=== PATIENT | female | born 1935 | race Caucasian/White ===

== ENCOUNTER 2022-08-31 14:19 | Inpatient (IN) | payer MEDICARE ==
--- NOTE | 2022-08-31 14:55 | ED ---
General Adult HPI - General Chief complaint: Shortness of Breath Stated complaint: CHRIS Time Seen by Provider: 08/31/22 14:22 Source: EMS Mode of arrival: EMS - History of Present Illness Initial comments: Dictation was produced using [employer] dictation software. please excuse any grammatical, word or spelling errors. Chief Complaint: 87-year-old female past medical history heart failure presents to the ER for dyspnea History of Present Illness: Patient is an 87-year-old female she just had movements from [place] to here. She grew up here however [facility] 25 years ago. After of blood when she decided to move back to [place] live with her daughters. Patient is allegedly has a history of heart failure. She complains today of shortness of breath. She does report right lower extremity deep calf pain. She has remote history of smoking. Denies any history of COPD. She does report history of heart failure. Patient denies any use of home o xygen. She does not take any anticoagulation medications. Denies any fever or cough. Patient flew on a plane yesterday. The ROS documented in this emergency department record has been reviewed and confirmed by me. Those systems with pertinent positive or negative responses have been documented in the HPI. All other systems are other negative and/or noncontributory. - Related Data Home Medications Medication Instructions Recorded Confirmed Aspirin EC [Ecotrin Low Dose] 81 mg PO HS 08/31/22 08/31/22 Atorvastatin [Lipitor] 20 mg PO DAILY 08/31/22 08/31/22 Bumetanide [BUMEX] 2 mg PO BID 08/31/22 08/31/22 Cyanocobalamin (Vitamin B-12) 1,000 mcg PO DAILY 08/31/22 08/31/22 [Vitamin B-12] Insulin NPH Hum/Reg Insulin Hm 10 unit SQ AC-BRKFST 08/31/22 08/31/22 [Novolin 70-30 100 Unit/ml Vial] Insulin NPH Hum/Reg Insulin Hm 18 unit SQ AC-SUPPER 08/31/22 08/31/22 [Novolin 70-30 100 Unit/ml Vial] Levothyroxine Sodium [Synthroid] 75 mcg PO DAILY 08/31/22 08/31/22 Melatonin [Melatonin ER] 10 mg PO HS 08/31/22 08/31/22 Multivitamins, Thera [Multivitamin 1 tab PO DAILY 08/31/22 08/31/22 (formulary)] NIFEdipine XL [Procardia XL] 60 mg PO BID 08/31/22 08/31/22 Nebivolol [Bystolic] 5 mg PO BID 08/31/22 08/31/22 Omeprazole [PriLOSEC] 20 mg PO BID 08/31/22 08/31/22 Potassium Chloride ER [K-Dur 20] 20 meq PO DAILY 08/31/22 08/31/22 allopurinoL [Zyloprim] 100 mg PO BID 08/31/22 08/31/22 busPIRone HCl [Buspar] 10 mg PO BID 08/31/22 08/31/22 hydrALAZINE HCL [Apresoline] 50 mg PO TID 08/31/22 08/31/22 predniSONE See Taper PO DAILY 08/31/22 08/31/22 Allergies Allergy/AdvReac Type Severity Reaction Status Date / Time adhesive tape Allergy Unknown Verified 08/31/22 16:25 meperidine [From Demerol] Allergy Unknown Verified 08/31/22 16:24 methylprednisolone Allergy Unknown Verified 08/31/22 16:25 [From Medrol] Review of Systems ROS Statement: Those systems with pertinent positive or pertinent negative responses have been documented in the HPI. ROS Other: All systems not noted in ROS Statement are negative. Past Medical History Past Medical History: Heart Failure Past Surgical History: Appendectomy, Hysterectomy, Joint Replacement General Exam - General Exam Comments Initial Comments: PHYSICAL EXAM: General Impression: Alert and oriented x3, not in acute distress HEENT: Normocephalic atraumatic, extra-ocular movements intact, pupils equal and reactive to light bilaterally, mucous membranes moist. Cardiovascular: Heart regular rate and rhythm Chest: Able to complete full sentences, no retractions, no tachypnea, lungs clear to auscultation bilaterally Abdomen: abdomen soft, non-tender, non-distended, no organomegaly Musculoskeletal: Pulses present and equal in all extremities, no peripheral edema Motor: no focal deficits noted Neurological: CN II-XII grossly intact, no focal motor or sensory deficits noted Skin: Intact with no visualized rashes Psych: Normal affect and mood Course Vital Signs 08/31/22 08/31/22 14:22 16:16 Temperature 98.4 F Pulse Rate 91 89 Respiratory 26 H 19 Rate Blood Pressure 157/58 158/58 O2 Sat by Pulse 91 L 93 L Oximetry Medical Decision Making - Medical Decision Making Was pt. sent in by a medical professional or institution ([facility]A Briggs, SPONGE PRESS OPERATOR, urgent care, hospital, or retirement...) When possible be specific @ -No Did you speak to anyone other than the patient for history (EMS, parent, family, police, friend...)? What history was obtained from this source @ -Daughter's at the bedside reports that patient is dyspneic Did you review nursing and triage notes (agree or disagree)? Why? @ -I reviewed and agree with nursing and triage notes Were old charts reviewed (outside hosp., previous admission, EMS record, old EKG, old radiological studies, urgent care reports/EKG's, retirement records)? Report findings @ -No old charts were reviewed Differential Diagnosis (chest pain, altered mental status, abdominal pain women, abdominal pain men, vaginal bleeding, musculoskeletal, weakness, fever, dyspnea, syncope, headache, dizziness, GI bleed, back pain, seizure, CVA, palpatations, mental health)? @ -Differential Dyspnea: Coronary syndrome, arrhythmia, tamponade, asthma, COPD, pulmonary embolism, pneumonia, pneumothorax, pulmonary effusion, anaphylaxis, diabetic ketoacidosis, flailed chest, pulmonary contusion, diaphragmatic rupture, anemia, neuromuscular, this is not meant to be an all-inclusive list. EKG interpreted by me (3pts min.). @ -My EKG interpretation: Ventricular rate 83, sinus rhythm,. Interval to 24, QRS 85, QTC 410. No AR prolongation, no QTC prolongation, no ST or T-wave changes noted. Overall, this EKG is unremarkable X-rays interpreted by me (1pt min.). @ -Chest x-ray shows heart failure CT interpreted by me (1pt min.). @ -None done U/S interpreted by me (1pt. min.). @ -None done What testing was considered but not performed or refused? (CT, X-rays, U/S, labs)? Why? @ -None What meds were considered but not given or refused? Why? @ -None Did you discuss the management of the patient with other professionals (professionals i.e. , VERA, SPONGE PRESS OPERATOR, lab, RT, psych nurse, social worker health services, welding equipment repairer, teacher, chief revenue officer, dependency case manager)? Give summary @ -Labs and imaging presentation discussed with Eula from [facility] hospitalist group Was smoking cessation discussed for >3mins.? @ -No Was critical care preformed (if so, how long)? @ -No Were there social determinants of health that impacted care today? How? (Homelessness, low income, unemployed, alcoholism, drug addiction, transportation, low edu. Level, literacy, decrease access to med. care, penitentiary, rehab)? @ -No Was there de-escalation of care discussed even if they declined (Discuss DNR or withdrawal of care, Hospice)? DNR status @ -No What co-morbidities impacted this encounter? (DM, HTN, Smoking, COPD, CAD, Cancer, CVA, ARF, Chemo, Hep., AIDS, mental health diagnosis, sleep apnea, morbid obesity)? @ -None Was patient admitted / discharged? Hospital course, mention meds given and route, prescriptions, significant lab abnormalities, going to OR and other pertinent info. @ -87-year-old female presents emergency Department with respiratory distress. Vital signs upon arrival shows tachypnea of 26. She is requiring 4 L nasal cannula to maintain normal saturations. Blood pressure within acceptable limits. Laboratory evaluation shows CBC within acceptable limits. D-dimer is elevated at 2.3. Pending nuclear medicine scan. Metabolic panel shows creatin ine of 2.87 with a BUN of 80. Patient has a G4 of 14. Glucose levels 126. Troponin level 0.156. Prematurity peptide is 7500. Chest x-ray shows cardiomegaly and pulmonary edema. Venous ultrasound of the right lower extremity shows no DVT. Patient be admitted for further care. Consultations chiquita molina to cardiology and nephrology Undiagnosed new problem with uncertain prognosis? @ -No Drug Therapy requiring intensive monitoring for toxicity (Heparin, Nitro, Insulin, Cardizem)? @ -No Were any procedures done? @ -No Diagnosis/symptom? Acute, or Chronic, or Acute on Chronic? Uncomplicated (without systemic symptoms) or Complicated (systemic symptoms)? @ -1. CHF exacerbation Side effects of treatment? @ -No Exacerbation, Progression, or Severe Exacerbation? @ -No Poses a threat to life or bodily function? How? (Chest pain, USA, ID, pneumonia, PE, COPD, DKA, ARF, appy, cholecystitis, CVA, Diverticulitis, Homicidal, Suicidal, threat to staff... and all critical care pts) @ -yes - Lab Data Result diagrams: 08/31/22 15:19 08/31/22 15:19 Lab Results 08/31/22 08/31/22 08/31/22 Range/Units 15:18 15:19 15:19 WBC 11.4 H (3.8-10.6) k/uL RBC 3.55 L (3.80-5.40) m/uL Hgb 10.5 L (11.4-16.0) gm/dL Hct 32.2 L (34.0-46.0) % MCV 90.8 (80.0-100.0) fL MCH 29.5 (25.0-35.0) pg MCHC 32.5 (31.0-37.0) g/dL RDW 15.8 H (11.5-15.5) % Plt Count 292 (150-450) k/uL MPV 8.0 Neutrophils % 88 % Lymphocytes % 6 % Monocytes % 4 % Eosinophils % 0 % Basophils % 0 % Neutrophils # 10.0 H (1.3-7.7) k/uL Lymphocytes # 0.7 L (1.0-4.8) k/uL Monocytes # 0.5 (0-1.0) k/uL Eosinophils # 0.0 (0-0.7) k/uL Basophils # 0.0 (0-0.2) k/uL Hypochromasia Slight PT 9.9 (9.0-12.0) sec INR 0.9 (<1.2) APTT 20.4 L (22.0-30.0) sec D-Dimer 2.30 H (<0.60) mg/L FEU Sodium (137-145) mmol/L Potassium (3.5-5.1) mmol/L Chloride (98-107) mmol/L Carbon Dioxide (22-30) mmol/L Anion Gap mmol/L BUN (7-17) mg/dL Creatinine (0.52-1.04) mg/dL Est GFR (CKD-EPI)AfAm (>60 ml/min/1.73 sqM) Est GFR (CKD-EPI)NonAf (>60 ml/min/1.73 sqM) Glucose (74-99) mg/dL Plasma Lactic Acid Franc 0.9 (0.7-2.0) mmol/L Calcium (8.4-10.2) mg/dL Magnesium (1.6-2.3) mg/dL Total Bilirubin (0.2-1.3) mg/dL AST (14-36) U/L ALT (4-34) U/L Alkaline Phosphatase (38-126) U/L Troponin I (0.000-0.034) ng/mL NT-Pro-B Natriuret Pep pg/mL Total Protein (6.3-8.2) g/dL Albumin (3.5-5.0) g/dL 08/31/22 08/31/22 08/31/22 Range/Units 15:19 15:19 15:19 WBC (3.8-10.6) k/uL RBC (3.80-5.40) m/uL Hgb (11.4-16.0) gm/dL Hct (34.0-46.0) % MCV (80.0-100.0) fL MCH (25.0-35.0) pg MCHC (31.0-37.0) g/dL RDW (11.5-15.5) % Plt Count (150-450) k/uL MPV Neutrophils % % Lymphocytes % % Monocytes % % Eosinophils % % Basophils % % Neutrophils # (1.3-7.7) k/uL Lymphocytes # (1.0-4.8) k/uL Monocytes # (0-1.0) k/uL Eosinophils # (0-0.7) k/uL Basophils # (0-0.2) k/uL Hypochromasia PT (9.0-12.0) sec INR (<1.2) APTT (22.0-30.0) sec D-Dimer (<0.60) mg/L FEU Sodium 135 L (137-145) mmol/L Potassium 3.8 (3.5-5.1) mmol/L Chloride 104 (98-107) mmol/L Carbon Dioxide 18 L (22-30) mmol/L Anion Gap 13 mmol/L BUN 80 H (7-17) mg/dL Creatinine 2.87 H (0.52-1.04) mg/dL Est GFR (CKD-EPI)AfAm 17 (>60 ml/min/1.73 sqM) Est GFR (CKD-EPI)NonAf 14 (>60 ml/min/1.73 sqM) Glucose 126 H (74-99) mg/dL Plasma Lactic Acid Franc (0.7-2.0) mmol/L Calcium 8.7 (8.4-10.2) mg/dL Magnesium 2.3 (1.6-2.3) mg/dL Total Bilirubin 0.5 (0.2-1.3) mg/dL AST 36 (14-36) U/L ALT 31 (4-34) U/L Alkaline Phosphatase 89 (38-126) U/L Troponin I 0.156 H* (0.000-0.034) ng/mL NT-Pro-B Natriuret Pep 7580 pg/mL Total Protein 6.2 L (6.3-8.2) g/dL Albumin 3.9 (3.5-5.0) g/dL Disposition Clinical Impression: CHF (congestive heart failure) Disposition: ADMITTED IP TO THIS [facility] Condition: Fair Referrals: None,Stated [Primary Care Provider] - 1-2 days Decision Time: 17:00
[2022-08-31 15:32] LABS: Basophils % (A) 0 %; Eosinophils % (A) 0 %; HCT 32.2 % (34.0-46.0); HGB 10.5 gm/dL (11.4-16.0); Hypochromasia Slight; Lymphocytes # (A) 0.7 k/uL (1.0-4.8); Lymphocytes % (A) 6 %; MCH 29.5 pg (25.0-35.0); MCHC 32.5 g/dL (31.0-37.0); MCV 90.8 fL (80.0-100.0); Monocytes # (A) 0.5 k/uL (0-1.0); Monocytes % (A) 4 %; Neutrophils % (A) 88 %; Platelet Count 292 k/uL (150-450); RBC 3.55 m/uL (3.80-5.40); RDW 15.8 % (11.5-15.5); WBC 11.4 k/uL (3.8-10.6)
--- NOTE | 2022-08-31 15:45 | XR ---
EXAMINATION TYPE: XR chest 2V DATE OF EXAM: 08/31/2022 COMPARISON: NONE HISTORY: Shortness of breath TECHNIQUE: Frontal and lateral views of the chest are obtained. FINDINGS: There is diffuse interstitial opacity, small bilateral pleural effusions and cardiomegaly. The findin gs are most consistent with CHF. There is no pneumothorax. The osseous structures are intact IMPRESSION: Acute cardiopulmonary disease most consistent with moderate to marked CHF.
[2022-08-31 15:50] LABS: INR 0.9 (<1.2); Prothrombin Time 9.9 sec (9.0-12.0)
[2022-08-31 16:01] LABS: ALT 31 U/L (4-34); AST 36 U/L (14-36); African American GFR (CKD) 17 (>60 ml/min/1.73 sqM); Albumin 3.9 g/dL (3.5-5.0); Alkaline Phosphatase 89 U/L (38-126); Anion Gap 13 mmol/L; Blood Urea Nitrogen 80 mg/dL (7-17); Calcium 8.7 mg/dL (8.4-10.2); Carbon Dioxide 18 mmol/L (22-30); Chloride 104 mmol/L (98-107); Glucose 126 mg/dL (74-99); Magnesium 2.3 mg/dL (1.6-2.3); Non-African American GFR(CKD) 14 (>60 ml/min/1.73 sqM); Potassium 3.8 mmol/L (3.5-5.1); Sodium 135 mmol/L (137-145); Total Bilirubin 0.5 mg/dL (0.2-1.3); Total Protein 6.2 g/dL (6.3-8.2)
[2022-08-31 16:02] LABS: Partial Thromboplastin Time 20.4 sec (22.0-30.0)
--- NOTE | 2022-08-31 16:13 | US ---
EXAMINATION TYPE: US venous doppler duplex LE RT DATE OF EXAM: 08/31/2022 4:00 PM COMPARISON: NONE CLINICAL INDICATION: Female, 87 years old with history of suspect dvt; Right lower leg pain SIDE PERFORMED: Right TECHNIQUE: The lower extremity deep venous system is examined utilizing real time linear array sonog oneyda with graded compression, doppler sonography and color-flow sonography. VESSELS IMAGED: Common Femoral Vein Deep Femoral Vein Greater Saphenous Vein * Femoral Vein Popliteal Vein Small Saphenous Vein * Proximal Calf Veins (* superficial vessels) The deep venous system of the right lower extremity from the right common femoral vein to the proxima l calf veins is patent and compressible with augmentable flow and normal waveforms. IMPRESSION: No evidence of DVT from the right common femoral vein to the proximal right calf veins.
[2022-08-31] MEDS ORDERED: FUROSEMIDE 10 MG/ML 4 ML VIAL IV STA (16:53)
[2022-08-31 20:02] LABS: Glucose,Whole Blood 197 mg/dL (70-110)
[2022-08-31] MEDS ORDERED: DEXTROSE 50% SYRINGE 50 ML IVP PRN ×2 (20:06)
--- NOTE | 2022-08-31 20:35 | P.HPIM ---
History of Present Illness This is a pleasant 87 years old female with past medical history of chronic kidney disease, chronic heart failure, hypertension, hyperlipidemia, hypothyroidism, diabetes mellitus, history of GERD. Patient was recently moved from [place] back to [place]. Patient states she came because of dyspnea and leg swelling for 1 month, last night she flew from [place] back to [place], [place] she was hospitalized 6 type sutures than 4 heart failure any disease diabetes mellitus and hypertension. not on a blood thinner and takes low-dose aspirin She denies any chest pain. She has little dry cough. She feels generally weak She has some mild right chest discomfort for the last 3 hours Nonspecific no recuperating or aggravating factors it has been going on for last 2 months, comes and goes. Patient uses CPAP machine at night. She's been constipated other than that she denies any specific GI urinary or neurological symptoms She quit smoking 40 years ago and drinking alcohol 20 years ago. No illicit drugs. She's been complaining of from right calf pain and ultrasound was negative for DVT. She is not on oxygen at home She moved to [place] with her daughters On admission she is afebrile, mildly tachypneic, hypertensive and she was saturating 91% on 4 L oxygen via nasal cannula improved to 95% She has mild leukocytosis of 11.4, hemoglobin 10.5. Risks of CBC is unremarkable. D-dimer 2.3. BMP showing a creatinine of 2.8, unknown baseline Glucose 126. Liver enzymes unremarkable Elevated troponin 0.15. ProBNP is elevated 7580. EKG showing normal sinus rhythm with no significant ST-T changes and QTC 410. Chest x-ray: CHF Venous Doppler showed no evidence of deep venous thrombosis Ventilation perfusion this is ordered and is pending. Review of Systems Review of systems CONSTITUTIONAL: No fever, no malaise, no fatigue. HEENT: No recent visual problems or hearing problems. Denied any sore throat. CARDIOVASCULAR: No orthopnea, PND, no palpitations, no syncope. PULMONARY: No chest wall tenderness, no hemoptysis. GASTROINTESTINAL: No diarrhea, no nausea, no vomiting, no abdominal pain. Normoactive bowel sounds. NEUROLOGICAL: No headaches, no weakness, no numbness. HEMATOLOGICAL: Denies any bleeding or petechiae. GENITOURINARY: Denies any burning micturition, frequency, or urgency. MUSCULOSKELETAL/RHEUMATOLOGICAL: Denies any joint pain, swelling, or any muscle pain. ENDOCRINE: Denies any polyuria or polydipsia. Past Medical History Past Medical History: Heart Failure Past Surgical History: Appendectomy, Hysterectomy, Joint Replacement Medications and Allergies Home Medications Medication Instructions Recorded Confirmed Type Aspirin EC [Ecotrin Low Dose] 81 mg PO HS 08/31/22 08/31/22 History Atorvastatin [Lipitor] 20 mg PO DAILY 08/31/22 08/31/22 History Bumetanide [BUMEX] 2 mg PO BID 08/31/22 08/31/22 History Cyanocobalamin (Vitamin B-12) 1,000 mcg PO DAILY 08/31/22 08/31/22 History [Vitamin B-12] Insulin NPH Hum/Reg Insulin Hm 10 unit SQ AC-BRKFST 08/31/22 08/31/22 History [Novolin 70-30 100 Unit/ml Vial] Insulin NPH Hum/Reg Insulin Hm 18 unit SQ AC-SUPPER 08/31/22 08/31/22 History [Novolin 70-30 100 Unit/ml Vial] Levothyroxine Sodium [Synthroid] 75 mcg PO DAILY 08/31/22 08/31/22 History Melatonin [Melatonin ER] 10 mg PO HS 08/31/22 08/31/22 History Multivitamins, Thera [Multivitamin 1 tab PO DAILY 08/31/22 08/31/22 History (formulary)] NIFEdipine XL [Procardia XL] 60 mg PO BID 08/31/22 08/31/22 History Nebivolol [Bystolic] 5 mg PO BID 08/31/22 08/31/22 History Omeprazole [PriLOSEC] 20 mg PO BID 08/31/22 08/31/22 History Potassium Chloride ER [K-Dur 20] 20 meq PO DAILY 08/31/22 08/31/22 History allopurinoL [Zyloprim] 100 mg PO BID 08/31/22 08/31/22 History busPIRone HCl [Buspar] 10 mg PO BID 08/31/22 08/31/22 History hydrALAZINE HCL [Apresoline] 50 mg PO TID 08/31/22 08/31/22 History predniSONE See Taper PO DAILY 08/31/22 08/31/22 History Allergies Allergy/AdvReac Type Severity Reaction Status Date / Time adhesive tape Allergy Unknown Verified 07/02/23 16:25 meperidine [From Demerol] Allergy Unknown Verified 08/31/22 16:24 methylprednisolone Allergy Unknown Verified 08/31/22 16:25 [From Medrol] Physical Exam Vitals: Vital Signs Temp Pulse Resp BP Pulse Ox 08/31/22 18:49 98.6 F 90 20 168/86 95 08/31/22 16:16 89 19 158/58 93 L 08/31/22 14:22 98.4 F 91 26 H 157/58 91 L Intake and Output 08/31/22 08/31/22 08/31/22 06:59 14:59 22:59 Other: Weight 78.018 kg GENERAL: The patient is alert and oriented x3, not in any acute distress. Well developed, well nourished. HEENT: Pupils are round and equally reacting to light. EOMI. No scleral icterus. No conjunctival pallor. Normocephalic, atraumatic. No pharyngeal erythema. No thyromegaly. CARDIOVASCULAR: S1 and S2 present. No murmurs, rubs, or gallops. -PULMONARY: Chest is clear to auscultation, no wheezing . Mild bilateral basal crackles. ABDOMEN: Soft, nontender, nondistended, normoactive bowel sounds. No palpable organomegaly. MUSCULOSKELETAL: No joint swelling or deformity. -EXTREMITIES: No cyanosis, clubbing, . Bilateral pitting leg leg edema. NEUROLOGICAL: Gross neurological examination did not reveal any focal deficits. SKIN: No rashes. no petechiae. Results CBC & Chem 7: 08/31/22 15:19 08/31/22 15:19 Labs: Abnormal Lab Results - Last 24 Hours (Table) 08/31/22 08/31/22 08/31/22 Range/Units 15:19 15:19 15:19 WBC 11.4 H (3.8-10.6) k/uL RBC 3.55 L (3.80-5.40) m/uL Hgb 10.5 L (11.4-16.0) gm/dL Hct 32.2 L (34.0-46.0) % RDW 15.8 H (11.5-15.5) % Neutrophils # 10.0 H (1.3-7.7) k/uL Lymphocytes # 0.7 L (1.0-4.8) k/uL APTT 20.4 L (22.0-30.0) sec D-Dimer 2.30 H (<0.60) mg/L FEU Sodium 135 L (137-145) mmol/L Carbon Dioxide 18 L (22-30) mmol/L BUN 80 H (7-17) mg/dL Creatinine 2.87 H (0.52-1.04) mg/dL Glucose 126 H (74-99) mg/dL POC Glucose (mg/dL) (70-110) mg/dL Troponin I (0.000-0.034) ng/mL Total Protein 6.2 L (6.3-8.2) g/dL 08/31/22 08/31/22 Range/Units 15:19 19:59 WBC (3.8-10.6) k/uL RBC (3.80-5.40) m/uL Hgb (11.4-16.0) gm/dL Hct (34.0-46.0) % RDW (11.5-15.5) % Neutrophils # (1.3-7.7) k/uL Lymphocytes # (1.0-4.8) k/uL APTT (22.0-30.0) sec D-Dimer (<0.60) mg/L FEU Sodium (137-145) mmol/L Carbon Dioxide (22-30) mmol/L BUN (7-17) mg/dL Creatinine (0.52-1.04) mg/dL Glucose (74-99) mg/dL POC Glucose (mg/dL) 197 H (70-110) mg/dL Troponin I 0.156 H* (0.000-0.034) ng/mL Total Protein (6.3-8.2) g/dL Assessment and Plan Assessment: Acute CHF exacerbation Acute hypoxic respiratory failure secondary to above Chronic kidney disease, unknown baseline with possible elements of acute kidney injury Elevated troponin could be secondary to kidney disease and heart failure Diabetes mellitus Hypertension Hyperlipidemia History of osteoarthritis Hypothyroidism History of sleep apnea on CPAP/BiPAP Plan: Continue with IV Lasix 40 mg twice daily Continue with aspirin Oxygen therapy Follow-up with cardiology and pulmonary Check echocardiogram Check renal ultrasound Check urine analysis Check bladder scan Follow-up ventilation perfusion scan Labs and medication were reviewed.. Continue same treatment. Continue with symptomatic treatment. Resume home medication. Monitor labs and vitals. DVT and GI prophylaxis. Further recommendations as per clinical course of the patient DVT prophylaxis: Subcutaneous heparin GI Prophylaxis: Pepcid PT/OT: Pending Prognosis is guarded
[2022-08-31] MEDS: INSULIN ASPART (NovoLOG) 100 UNIT/ML VIAL SQ SCH (21:37)
[2022-08-31] MEDS: ASPIRIN 81 MG PO SCH (21:38)
[2022-08-31] MEDS: hydrALAZINE HCL 50 MG TAB PO SCH (21:38)
[2022-08-31] MEDS: busPIRone HCl 10 MG TAB PO SCH (21:38)
[2022-08-31] MEDS: MELATONIN 5 MG TABLET PO SCH (21:38)
[2022-08-31] MEDS: NEBIVOLOL 5 MG TAB PO SCH (21:39)
[2022-08-31] MEDS: allopurinoL 100 MG TAB PO SCH (21:39)
--- NOTE | 2022-08-31 21:40 | NM ---
EXAMINATION TYPE: NM pul vent and perfuse DATE OF EXAM: 08/31/2022 CLINICAL INDICATION: Female, 87 years old with history of elevated d-dimer; TECHNIQUE: Utilizing inhalation of 62.7 mCi Tc 99m DTPA aerosol and intravenous injection of 4.4 mCi of Tc 99m MAA, ventilation and perfusion images are acquired post injection in multiple projections. FINDINGS: Normal radiotracer distribution is noted in the lungs. There is no evidence of mismatched defects. IMPRESSION: No evidence for pulmonary embolism.
[2022-08-31] MEDS: HEPARIN SODIUM,PORCINE/PF 5,000 UNIT/0.5 ML SYRINGE SQ SCH (23:54)
[2022-09-01 06:09] LABS: Glucose,Whole Blood 154 mg/dL (70-110)
[2022-09-01] MEDS: FUROSEMIDE 10 MG/ML 4 ML VIAL IV SCH ×2 (06:24→16:34)
[2022-09-01] MEDS: LEVOTHYROXINE 75 MCG TAB PO SCH (06:25)
[2022-09-01] MEDS: PANTOPRAZOLE 40 MG TABLET PO SCH (06:25)
[2022-09-01] MEDS: INSULIN ASPART (NovoLOG) 100 UNIT/ML VIAL SQ SCH ×4 (06:25→21:43)
--- NOTE | 2022-09-01 08:24 | US ---
EXAMINATION TYPE: US renals and bladder DATE OF EXAM: 09/01/2022 COMPARISON: NONE CLINICAL INDICATION: Female, 87 years old with history of high creatinine; high creatinine EXAM MEASUREMENTS: Right Kidney: 10.4 x 3.9 x 4.1 cm Left Kidney: 9.8 x 4.7 x 3.7 cm Right Kidney: thin renal cortex, echogenic Left Kidney: thin renal cortex, echogenic Bladder: appears wnl Bilateral Jets seen: no IMPRESSION: 1. Some thinning of the renal cortices could indicate early renal failure.
[2022-09-01 08:30] LABS: Basophils % (A) 0 %; Eosinophils # (A) 0.2 k/uL (0-0.7); Eosinophils % (A) 2 %; HCT 29.1 % (34.0-46.0); HGB 9.3 gm/dL (11.4-16.0); Lymphocytes # (A) 1.3 k/uL (1.0-4.8); Lymphocytes % (A) 17 %; MCH 28.5 pg (25.0-35.0); MCHC 31.9 g/dL (31.0-37.0); MCV 89.3 fL (80.0-100.0); Mean Platelet Volume 8.2; Monocytes # (A) 0.5 k/uL (0-1.0); Monocytes % (A) 6 %; Neutrophils # (A) 5.7 k/uL (1.3-7.7); Neutrophils % (A) 72 %; Platelet Count 277 k/uL (150-450); RBC 3.26 m/uL (3.80-5.40); WBC 7.9 k/uL (3.8-10.6)
[2022-09-01 08:58] LABS: African American GFR (CKD) 17 (>60 ml/min/1.73 sqM); Anion Gap 12 mmol/L; Blood Urea Nitrogen 81 mg/dL (7-17); Calcium 8.5 mg/dL (8.4-10.2); Carbon Dioxide 22 mmol/L (22-30); Chloride 102 mmol/L (98-107); Glucose 121 mg/dL (74-99); Non-African American GFR(CKD) 14 (>60 ml/min/1.73 sqM); Potassium 3.5 mmol/L (3.5-5.1); Sodium 136 mmol/L (137-145)
[2022-09-01] MEDS: MULTIVITAMINS, THERA 1 EACH TAB PO SCH (09:39)
[2022-09-01] MEDS: hydrALAZINE HCL 50 MG TAB PO SCH ×3 (09:39→21:45)
[2022-09-01] MEDS: NEBIVOLOL 5 MG TAB PO SCH ×2 (09:39→21:42)
[2022-09-01] MEDS: ATORVASTATIN 20 MG TAB PO SCH (09:39)
[2022-09-01] MEDS: busPIRone HCl 10 MG TAB PO SCH ×2 (09:39→21:42)
[2022-09-01] MEDS: POTASSIUM CHLORIDE ER 20 MEQ TAB.ER PO SCH (09:39)
[2022-09-01] MEDS: CYANOCOBALAMIN 500 MCG TAB PO SCH (09:39)
[2022-09-01] MEDS: allopurinoL 100 MG TAB PO SCH ×2 (09:39→21:42)
[2022-09-01] MEDS: HEPARIN SODIUM,PORCINE/PF 5,000 UNIT/0.5 ML SYRINGE SQ SCH ×2 (09:41→15:33)
--- NOTE | 2022-09-01 10:46 | P.CRDCN ---
History of Present Illness Consult date: 09/01/22 Consult reason: congestive heart failure History of present illness: History of present illness: This is an 87-year-old female patient here from [place] with extensive past medical history including chronic kidney disease stage IV, chronic heart failure, hypertension, hyperlipidemia, hypothyroidism, diabetes mellitus type 2, gastroesophageal reflux disease. Patient states that she has had a total of 6 hospitalizations since April of this year while in [place]. She had 4 alone in July for kidney failure and heart failure. She denies any history of cardiac surgeries. She states she's had increased weight gain, lower extremity edema and wheezing, chills. She is not on home oxygen therapy. Patient denies having any chest pain, continues to have shortness of breath and dyspnea on exertion. EKG sinus rhythm with low voltage Chest x-ray: Acute cardiopulmonary disease disease most consistent with moderate to marked CHF. Right lower extremity venous Doppler study was negative for DVT. VQ scan negative for pulmonary embolism Renal ultrasound revealed thinning of the renal courses could indicate early renal failure. WBC 7.9, hemoglobin 9.3, platelet count 277. D-dimer 2.3. Sodium 136, potassium 3.5, BUN 81 creatinine 2.86. Glucose 121. Troponin 0.156. ProBNP 7580. Liver function tests are normal. Magnesium 2.3. Home cardiac medications: Aspirin 81 mg daily, Lipitor 20 mg daily, Bumex 2 mg twice daily, hydralazine 50 mg 3 times daily, Bystolic 5 mg twice daily, Procardia XL 60 mg twice daily, potassium chloride, levothyroxine 75 g daily. Review Of Systems: At the time of my evaluation: Constitutional: No fever, reports chills. No weakness, fatigue or lethargy. Reports weight gain. EENT: No headache. No dizziness. Lungs: Reports shortness of breath, cough, no sputum production. Reports wheezing. Cardiovascular: No chest pain, reports lower extremity edema. No palpitations. No paroxysmal nocturnal dyspnea. No orthopnea. No lightheadedness or dizziness. No syncopal episodes. Abdominal: No abdominal pain. No nausea, vomiting. No diarrhea. No constipation. No bloody or tarry stools. Genitourinary: No dysuria.. No urinary retention. Musculoskeletal: No myalgias. No muscle weakness, no frequent falls. No back pain. No neck pain. Integumentary: No wounds. No rash. No unusual bruising. Neurologic: No aphasia. No facial droop. No change in mentation. No head injury. No headache. Physical examination: Gen: This is an 87-year-old female. She is resting in bed and appears to be in no acute distress. VS: reviewed. Blood pressure 159/66, heart rate in the 60s and 70s, pulse ox 88-92% on 4 L nasal cannula, afebrile. HEENT: Head is atraumatic, normocephalic. Pupils equal, round. Sclerae is anicteric. NECK: Supple. No JVD. . LUNGS: Diminished with scattered wheezing. No intercostal retractions. HEART: Regular rate and rhythm. No murmur. ABDOMEN: Soft EXTREMITIES: 1+ bilateral pedal edema. NEUROLOGICAL: Patient is awake, alert and oriented x3. Assessment: Acute on chronic heart failure Elevated troponin Hypertension Hyperlipidemia Hypothyroidism Diabetes mellitus 2 Gastroesophageal reflux disease Plan: Continue patient's home cardiac medications Continue IV Lasix 40 mg every 12 hours, monitor I&O, daily weights, electrolytes and renal function Obtain 2-D echocardiogram and Doppler study to assess cardiac structure and function Further recommendations to follow based upon clinical course Thank you kindly for this consultation. Nurse practitioner note has been reviewed, I agree with documented findings and plan of care. Patient was seen and examined. Past Medical History Past Medical History: Heart Failure Additional Past Medical History / Comment(s): CKD Stage 4 History of Any Multi-Drug Resistant Organisms: None Reported Past Surgical History: Appendectomy, Hysterectomy, Joint Replacement Additional Past Surgical History / Comment(s): L knee total hip. R side thyroid removal for benign growth. Past Anesthesia/Blood Transfusion Reactions: No Reported Reaction Past Psychological History: Anxiety Smoking Status: Former smoker Past Alcohol Use History: Rare - Past Family History Mother Additional Family Medical History / Comment(s): at 38 of a CO. Father Additional Family Medical History / Comment(s): at 58 of a CVA. Medications and Allergies Home Medications Medication Instructions Recorded Confirmed Type Aspirin EC [Ecotrin Low Dose] 81 mg PO HS 08/31/22 08/31/22 History Atorvastatin [Lipitor] 20 mg PO DAILY 08/31/22 08/31/22 History Bumetanide [BUMEX] 2 mg PO BID 08/31/22 08/31/22 History Cyanocobalamin (Vitamin B-12) 1,000 mcg PO DAILY 08/31/22 08/31/22 History [Vitamin B-12] Insulin NPH Hum/Reg Insulin Hm 10 unit SQ AC-BRKFST 08/31/22 08/31/22 History [Novolin 70-30 100 Unit/ml Vial] Insulin NPH Hum/Reg Insulin Hm 18 unit SQ AC-SUPPER 08/31/22 08/31/22 History [Novolin 70-30 100 Unit/ml Vial] Levothyroxine Sodium [Synthroid] 75 mcg PO DAILY 08/31/22 08/31/22 History Melatonin [Melatonin ER] 10 mg PO HS 08/31/22 08/31/22 History Multivitamins, Thera [Multivitamin 1 tab PO DAILY 08/31/22 08/31/22 History (formulary)] NIFEdipine XL [Procardia XL] 60 mg PO BID 08/31/22 08/31/22 History Nebivolol [Bystolic] 5 mg PO BID 08/31/22 08/31/22 History Omeprazole [PriLOSEC] 20 mg PO BID 08/31/22 08/31/22 History Potassium Chloride ER [K-Dur 20] 20 meq PO DAILY 08/31/22 08/31/22 History allopurinoL [Zyloprim] 100 mg PO BID 08/31/22 08/31/22 History busPIRone HCl [Buspar] 10 mg PO BID 08/31/22 08/31/22 History hydrALAZINE HCL [Apresoline] 50 mg PO TID 08/31/22 08/31/22 History predniSONE See Taper PO DAILY 08/31/22 08/31/22 History Allergies Allergy/AdvReac Type Severity Reaction Status Date / Time adhesive tape Allergy Unknown Verified 08/31/22 16:25 meperidine [From Demerol] Allergy Unknown Verified 08/31/22 16:24 methylprednisolone Allergy Unknown Verified 08/31/22 16:25 [From Medrol] Physical Exam Vitals: Vital Signs Temp Pulse Pulse Resp BP BP Pulse Ox 09/01/22 04:00 98.2 F 64 19 139/68 92 L 09/01/22 02:00 67 20 08/31/22 23:50 98.5 F 67 20 152/56 96 08/31/22 19:30 98.2 F 65 22 169/66 93 L 08/31/22 18:49 98.6 F 90 20 168/86 95 08/31/22 16:16 89 19 158/58 93 L 08/31/22 14:22 98.4 F 91 26 H 157/58 91 L Intake and Output 08/31/22 09/01/22 09/01/22 22:59 06:59 14:59 Intake Total 480 Output Total 550 700 Balance -70 -700 Intake: Oral 480 Output: Urine 550 700 Other: Voiding Method External Catheter External Catheter Weight 78.018 kg 76.385 kg Results 09/01/22 07:56 09/01/22 07:56 Cardiac Enzymes 08/31/22 08/31/22 Range/Units 15:19 15:19 AST 36 (14-36) U/L Troponin I 0.156 H* (0.000-0.034) ng/mL Coagulation 08/31/22 Range/Units 15:19 PT 9.9 (9.0-12.0) sec APTT 20.4 L (22.0-30.0) sec CBC 08/31/22 Range/Units 15:19 WBC 11.4 H (3.8-10.6) k/uL RBC 3.55 L (3.80-5.40) m/uL Hgb 10.5 L (11.4-16.0) gm/dL Hct 32.2 L (34.0-46.0) % Plt Count 292 (150-450) k/uL Comprehensive Metabolic Panel 08/31/22 Range/Units 15:19 Sodium 135 L (137-145) mmol/L Potassium 3.8 (3.5-5.1) mmol/L Chloride 104 (98-107) mmol/L Carbon Dioxide 18 L (22-30) mmol/L BUN 80 H (7-17) mg/dL Creatinine 2.87 H (0.52-1.04) mg/dL Glucose 126 H (74-99) mg/dL Calcium 8.7 (8.4-10.2) mg/dL AST 36 (14-36) U/L ALT 31 (4-34) U/L Alkaline Phosphatase 89 (38-126) U/L Total Protein 6.2 L (6.3-8.2) g/dL Albumin 3.9 (3.5-5.0) g/dL Current Medications Generic Name Dose Route Start Last Admin Trade Name Jodee PRN Reason Stop Dose Admin Allopurinol 100 mg 08/31/22 21:00 08/31/22 21:39 Allopurinol 100 Mg Tab PO 100 mg BID SADIE Administration Aspirin 81 mg 08/31/22 21:00 08/31/22 21:38 Aspirin 81 Mg PO 81 mg HS SADIE Administration Atorvastatin Calcium 20 mg 09/01/22 09:00 Atorvastatin 20 Mg Tab PO DAILY SADIE Buspirone HCl 10 mg 08/31/22 21:00 08/31/22 21:38 Buspirone Hcl 10 Mg Tab PO 10 mg BID SADIE Administration Cyanocobalamin 1,000 mcg 09/01/22 09:00 Cyanocobalamin 500 Mcg Tab PO DAILY SADIE Dextrose/Water 25 ml 08/31/22 20:06 Dextrose 50% Syringe 50 Ml IVP PER PROTOCOL PRN Hypoglycemia Protocol Dextrose/Water 50 ml 08/31/22 20:06 Dextrose 50% Syringe 50 Ml IVP PER PROTOCOL PRN Hypoglycemia Protocol Furosemide 40 mg 09/01/22 06:00 09/01/22 06:24 Furosemide 10 Mg/Ml 4 Ml Vial IV 40 mg Q12H SADIE Administration Heparin Sodium (Porcine) 5,000 unit 09/01/22 00:00 08/31/22 23:54 Heparin Sodium,Porcine/Pf 5,000 Unit/0.5 Ml Syringe SQ 5,000 unit Q8HR SADIE Administration Hydralazine HCl 50 mg 08/31/22 22:00 08/31/22 21:38 Hydralazine Hcl 50 Mg Tab PO 50 mg TID SADIE Administration Insulin Aspart 0 unit 08/31/22 21:00 09/01/22 06:25 Insulin Aspart (Novolog) 100 Unit/Ml Vial SQ 2 unit ACHS SADIE Administration Protocol Levothyroxine Sodium 75 mcg 09/01/22 06:30 09/01/22 06:25 Levothyroxine 75 Mcg Tab PO 75 mcg DAILY@0630 SADIE Administration Melatonin 10 mg 08/31/22 21:00 08/31/22 21:38 Melatonin 5 Mg Tablet PO 10 mg HS SADIE Administration Multivitamins 1 each 09/01/22 09:00 Multivitamins, Thera 1 Each Tab PO DAILY SADIE Nebivolol 5 mg 08/31/22 21:00 08/31/22 21:39 Nebivolol 5 Mg Tab PO 5 mg BID SADIE Administration Nifedipine 60 mg 08/31/22 21:00 08/31/22 21:38 Nifedipine Xl 60 Mg Tab.Er.24 PO 60 mg BID SADIE Administration Pantoprazole Sodium 40 mg 09/01/22 07:30 09/01/22 06:25 Pantoprazole 40 Mg Tablet PO 40 mg AC-BRKFST SADIE Administration Potassium Chloride 20 meq 09/01/22 09:00 Potassium Chloride Er 20 Meq Tab.Er PO DAILY SADIE Intake and Output 08/31/22 09/01/22 09/01/22 22:59 06:59 14:59 Intake Total 480 Output Total 550 700 Balance -70 -700 Intake: Oral 480 Output: Urine 550 700 Other: Voiding Method External Catheter External Catheter Weight 78.018 kg 76.385 kg 08/31/22 15:19 08/31/22 15:19
--- NOTE | 2022-09-01 10:50 | P.NPCON ---
History of Present Illness - Reason for Consult chronic renal failure - History of Present Illness Patient is an 87-year-old female with history of CK D stage IV follows with a medical assistant in [place]. Patient also has history of type 2 diabetes, CHF, hypertension, coronary artery disease. Cecil patient has just moved to [place] from [place] and will be staying here close to her family. Patient is admitted with complaints of increased shortness of breath and leg swelling which has been progressively getting worse over the past 2-3 weeks. No history of fever no history of chest pain No nausea or vomiting or abdominal pain. Patient believes her baseline GFR was in the 20s. No previous labs available for comparison. Serum creatinine was 2.87. Patient is currently being diuresed. Lasix is 40 mg IV every 12 hours Patient states she is feeling better. She has an external catheter with urine output at 1.2 L for 24 hours. Not on PRISCILLA inhibitor's or angiotensin receptor blockers at home. No history of use of NSAIDs. Review of Systems As per HPI Past Medical History Past Medical History: Heart Failure Additional Past Medical History / Comment(s): CKD Stage 4 History of Any Multi-Drug Resistant Organisms: None Reported Past Surgical History: Appendectomy, Hysterectomy, Joint Replacement Additional Past Surgical History / Comment(s): L knee total hip. R side thyroid removal for benign growth. Past Anesthesia/Blood Transfusion Reactions: No Reported Reaction Past Psychological History: Anxiety Smoking Status: Former smoker Past Alcohol Use History: Rare - Past Family History Mother Additional Family Medical History / Comment(s): at 38 of a MD. Father Additional Family Medical History / Comment(s): at 58 of a CVA. Medications and Allergies Home Medications Medication Instructions Recorded Confirmed Type Aspirin EC [Ecotrin Low Dose] 81 mg PO HS 08/31/22 08/31/22 History Atorvastatin [Lipitor] 20 mg PO DAILY 08/31/22 08/31/22 History Bumetanide [BUMEX] 2 mg PO BID 08/31/22 08/31/22 History Cyanocobalamin (Vitamin B-12) 1,000 mcg PO DAILY 08/31/22 08/31/22 History [Vitamin B-12] Insulin NPH Hum/Reg Insulin Hm 10 unit SQ AC-BRKFST 08/31/22 08/31/22 History [Novolin 70-30 100 Unit/ml Vial] Insulin NPH Hum/Reg Insulin Hm 18 unit SQ AC-SUPPER 08/31/22 08/31/22 History [Novolin 70-30 100 Unit/ml Vial] Levothyroxine Sodium [Synthroid] 75 mcg PO DAILY 08/31/22 08/31/22 History Melatonin [Melatonin ER] 10 mg PO HS 08/31/22 08/31/22 History Multivitamins, Thera [Multivitamin 1 tab PO DAILY 08/31/22 08/31/22 History (formulary)] NIFEdipine XL [Procardia XL] 60 mg PO BID 08/31/22 08/31/22 History Nebivolol [Bystolic] 5 mg PO BID 08/31/22 08/31/22 History Omeprazole [PriLOSEC] 20 mg PO BID 08/31/22 08/31/22 History Potassium Chloride ER [K-Dur 20] 20 meq PO DAILY 08/31/22 08/31/22 History allopurinoL [Zyloprim] 100 mg PO BID 08/31/22 08/31/22 History busPIRone HCl [Buspar] 10 mg PO BID 08/31/22 08/31/22 History hydrALAZINE HCL [Apresoline] 50 mg PO TID 08/31/22 08/31/22 History predniSONE See Taper PO DAILY 08/31/22 08/31/22 History Allergies Allergy/AdvReac Type Severity Reaction Status Date / Time adhesive tape Allergy Unknown Verified 08/31/22 16:25 meperidine [From Demerol] Allergy Unknown Verified 08/31/22 16:24 methylprednisolone Allergy Unknown Verified 08/31/22 16:25 [From Medrol] Physical Exam Vitals: Vital Signs Temp Pulse Pulse Resp BP BP Pulse Ox 09/01/22 09:37 97.8 F 73 16 159/66 88 L 09/01/22 04:00 98.2 F 64 19 139/68 92 L 09/01/22 02:00 67 20 08/31/22 23:50 98.5 F 67 20 152/56 96 08/31/22 19:30 98.2 F 65 22 169/66 93 L 08/31/22 18:49 98.6 F 90 20 168/86 95 08/31/22 16:16 89 19 158/58 93 L 08/31/22 14:22 98.4 F 91 26 H 157/58 91 L Intake and Output 08/31/22 09/01/22 09/01/22 22:59 06:59 14:59 Intake Total 480 Output Total 550 700 650 Balance -70 -700 -650 Intake: Oral 480 Output: Urine 550 700 650 Other: Voiding Method External Catheter External Catheter External Catheter Weight 78.018 kg 76.385 kg Patient is awake, comfortable, no acute distress Examination of the heart S1 and S2 Examination of the lungs bilateral breath sounds are heard, decreased breath sounds at the bases Abdomen is soft nontender Examination lower extremities shows edema 1+ bilaterally [employer] exam grossly intact Results - Lab Results Most recent lab results Calcium 8.5 mg/dL (8.4-10.2) 09/01/22 07:56 Magnesium 2.3 mg/dL (1.6-2.3) 08/31/22 15:19 09/01/22 07:56 09/01/22 07:56 Assessment and Plan Assessment: 1. Chronic kidney disease NKF stage IV secondary to nephrosclerosis versus diabetic kidney disease. Baseline creatinine not available. Patient was following with a medical assistant in [place] but has moved to [place] now. Check UA and check ultrasound of the kidneys 2. Volume overload currently being diuresed 3. Acute CHF exacerbation, EF not known 4. Anemia of chronic disease rule out iron deficiency 5. Hypertension with CK D stage IV with volume overload Plan: Continue current dose of Lasix Check UA Check ultrasound of the kidneys Patient will need close follow-up as outpatient for CK D management. Check bladder scan and rule out urine retention ex Thank you for the consultation. We will continue to follow the patient with you during her hospitalization
[2022-09-01 11:15] VITALS: BMI 34.0
[2022-09-01 11:33] LABS: Glucose,Whole Blood 315 mg/dL (70-110)
[2022-09-01 14:02] LABS: Phosphorus 4.6 mg/dL (2.5-4.5)
[2022-09-01 16:11] LABS: Glucose,Whole Blood 235 mg/dL (70-110)
[2022-09-01 16:28] LABS: Appearance,Urine Clear (Clear); Bacteria,Urine Rare /hpf; Bilirubin,Urine Negative (Negative); Blood,Urine Negative (Negative); Color,Urine Light Yellow; Glucose,Urine (UA) Negative (Negative); Hyaline Casts,Urine 12 /lpf (0-2); Ketones,Urine Negative (Negative); Leukocyte Esterase,Urine Negative (Negative); Nitrite,Urine Negative (Negative); Protein,Urine 1+ (Negative); Specific Gravity,Urine 1.009 (1.001-1.035); Squamous Epithelial Cell,Urine <1 /hpf (0-4); Urobilinogen,Urine <2.0 mg/dL (<2.0); WBC,Urine <1 /hpf (0-5)
[2022-09-01] MEDS ORDERED: ACETAMINOPHEN TAB 325 MG TAB PO PRN (17:42)
--- NOTE | 2022-09-01 19:25 | CA ---
Transthoracic Echo Report Name: Khushbu Salomon Age: 87 Gender: F : 1935 Exam Date: 09/01/2022 08:47 Exam Location: [facility] Ht (in): 59 Wt (lb): 168 Ordering Physician: Johnny Cutler MD Attending/Referring Phys: [id number], [employer] Akshat Laguna Procedure CPT: Indications: Rule out heart disease Cardiac Hx: Technical Quality: Fair Contrast 1: Total Dose (mL): Contrast 2: Total Dose (mL): MEASUREMENTS (Male / Female) Normal Values 2D ECHO LV Diastolic Diameter PLAX 3.9 cm 4.2 - 5.9 / 3.9 - 5.3 cm LV Systolic Diameter PLAX 2.8 cm IVS Diastolic Thickness 1.2 cm 0.6 - 1.0 / 0.6 - 0.9 cm LVPW Diastolic Thickness 1.0 cm 0.6 - 1.0 / 0.6 - 0.9 cm LV Relative Wall Thickness 0.6 RV Internal Dim ED PLAX 3.4 cm LVOT Diameter 1.9 cm Aortic Root Diameter 2.7 cm LA Systolic Diameter LX 3.0 cm 3.0 - 4.0 / 2.7 - 3.8 cm LV Diastolic Volume MOD BP 46.5 cm??? 67 - 155 / 56 - 104 cm??? LV Systolic Volume MOD BP 13.1 cm??? 22 - 58 / 19 - 49 cm??? LV Ejection Fraction MOD BP 71.9 % >= 55 % LV Diastolic Volume MOD 4C 48.7 cm??? LV Systolic Volume MOD 4C 13.2 cm??? LV Ejection Fraction MOD 4C 72.8 % LV Diastolic Length 4C 6.7 cm LV Systolic Length 4C 5.5 cm LV Diastolic Volume MOD 2C 40.9 cm??? LV Systolic Volume MOD 2C 12.4 cm??? LV Ejection Fraction MOD 2C 69.7 % LV Diastolic Length 2C 6.1 cm LV Systolic Length 2C 5.8 cm LA Volume 60.8 cm??? 18 - 58 / 22 - 52 cm??? DOPPLER AV Peak Velocity 220.2 cm/s AV Peak Gradient 19.4 mmHg AV Mean Velocity 158.1 cm/s AV Mean Gradient 11.2 mmHg AV Velocity Time Integral 55.2 cm LVOT Peak Velocity 142.8 cm/s LVOT Peak Gradient 8.2 mmHg AV Area Cont Eq pk 1.8 cm??? MV Peak Velocity 186.8 cm/s MV Peak Gradient 14.0 mmHg MV Mean Velocity 104.2 cm/s MV Mean Gradient 5.3 mmHg MV Velocity Time Integral 70.7 cm MR Peak Velocity 543.2 cm/s MR Peak Gradient 118.0 mmHg Mitral E Point Velocity 159.4 cm/s Mitral A Point Velocity 149.5 cm/s Mitral E to A Ratio 1.1 MV Deceleration Time 256.3 ms TR Peak Velocity 357.1 cm/s TR Peak Gradient 51.0 mmHg Right Ventricular Systolic Press 56.3 mmHg PV Peak Velocity 145.0 cm/s PV Peak Gradient 8.4 mmHg FINDINGS Left Ventricle Normal LV size and wall thickness. Left ventricular ejection fraction is estimated at 55-60 %. Right Ventricle Normal right ventricular size. RVSP= 60mhg Right Atrium Normal right atrial size. Left Atrium Normal left atrial size. Mitral Valve Mild to moderate Mitral thickening. Mild MR. Aortic Valve AV Sclerosis without stenosis. No AI. Tricuspid Valve Structurally normal tricuspid valve. Moderate TR. Pulmonic Valve Pulmonic valve not well visualized. Mild to moderate PI. Pericardium Normal pericardium. Aorta Normal size aortic root and proximal ascending aorta. CONCLUSIONS Normal LV size and systolic function Elevated right ventricular systolic pressures Previewed by: Dr. Miguel Kenny MD (Electronically Signed) Final Date: 01 September 2022 19:24
[2022-09-01 20:16] LABS: Glucose,Whole Blood 280 mg/dL (70-110)
--- NOTE | 2022-09-01 20:43 | P.PN ---
Subjective This is a pleasant 87 years old female with past medical history of chronic kidney disease, chronic heart failure, hypertension, hyperlipidemia, hyp othyroidism, diabetes mellitus, history of GERD. Patient was recently moved from [place] back to [place]. Patient states she came because of dyspnea and leg swelling for 1 month, last night she flew from [place] back to [place], [place] she was hospitalized 6 type sutures than 4 heart failure any disease diabetes mellitus and hypertension. not on a blood thinner and takes low-dose aspirin She denies any chest pain. She has little dry cough. She feels generally weak She has some mild right chest discomfort for the last 3 hours Nonspecific no recuperating or aggravating factors it has been going on for last 2 months, comes and goes. Patient uses CPAP machine at night. She's been constipated other than that she denies any specific GI urinary or neurological symptoms She quit smoking 40 years ago and drinking alcohol 20 years ago. No illicit drugs. She's been complaining of from right calf pain and ultrasound was negative for DVT. She is not on oxygen at home She moved to [place] with her daughters On admission she is afebrile, mildly tachypneic, hypertensive and she was sat urating 91% on 4 L oxygen via nasal cannula improved to 95% She has mild leukocytosis of 11.4, hemoglobin 10.5. Risks of CBC is unremarkable. D-dimer 2.3. BMP showing a creatinine of 2.8, unknown baseline Glucose 126. Liver enzymes unremarkable Elevated troponin 0.15. ProBNP is elevated 7580. EKG showing normal sinus rhythm with no significant ST-T changes and QTC 410. Chest x-ray: CHF Venous Doppler showed no evidence of deep venous thrombosis Ventilation perfusion this is ordered and is pending. 09/01/2022 Patient clinically the same she still fluid overload that she still feels dyspneic with bilateral leg swelling she made ordered tomorrow on urine on IV Lasix 40 mg twice daily, partly because of her advanced kidney disease, pulse the it is a stage IV chronic kidney disease, renal ultrasound showing no hydronephrosis. Bladder scan is still pending. Urine analysis is negative for infection. Cardiology evaluated the patient and recommended to continue with the same Echocardiogram showed ejection fraction 72% with moderate mitral regurgitation. Continue with home dose of aspirin 81 mg going to increase Lasix to 60 mg twice daily to increase urine output and also put the patient on fluids resection 1000 per day Objective - Vital Signs Vital signs: Vital Signs Temp 97.8 F 09/01/22 09:37 Pulse 70 09/01/22 12:02 Resp 18 09/01/22 12:02 BP 161/61 09/01/22 12:02 Pulse Ox 92 L 09/01/22 12:02 FiO2 Intake & Output 08/31/22 09/01/22 09/01/22 18:59 06:59 18:59 Intake Total 480 Output Total 1250 650 Balance -770 -650 Weight 78.018 kg 76.385 kg 76.385 kg Intake: Oral 480 Output: Urine 1250 650 Other: Voiding Method External Catheter External Catheter - Exam GENERAL: The patient is alert and oriented x3, not in any acute distress. Well developed, well nourished. HEENT: Pupils are round and equally reacting to light. EOMI. No scleral icterus. No conjunctival pallor. Normocephalic, atraumatic. No pharyngeal erythema. No thyromegaly. CARDIOVASCULAR: S1 and S2 present. No murmurs, rubs, or gallops. -PULMONARY: Chest is clear to auscultation, no wheezing . Mild bilateral basal crackles. ABDOMEN: Soft, nontender, nondistended, normoactive bowel sounds. No palpable organomegaly. MUSCULOSKELETAL: No joint swelling or deformity. -EXTREMITIES: No cyanosis, clubbing, . Bilateral pitting leg leg edema. NEUROLOGICAL: Gross neurological examination did not reveal any focal deficits. SKIN: No rashes. no petechiae. - Labs CBC & Chem 7: 09/01/22 07:56 09/01/22 07:56 Labs: Abnormal Lab Results - Last 24 Hours (Table) 08/31/22 08/31/22 08/31/22 Range/Units 15:19 15:19 15:19 WBC 11.4 H (3.8-10.6) k/uL RBC 3.55 L (3.80-5.40) m/uL Hgb 10.5 L (11.4-16.0) gm/dL Hct 32.2 L (34.0-46.0) % RDW 15.8 H (11.5-15.5) % Neutrophils # 10.0 H (1.3-7.7) k/uL Lymphocytes # 0.7 L (1.0-4.8) k/uL APTT 20.4 L (22.0-30.0) sec D-Dimer 2.30 H (<0.60) mg/L FEU Sodium 135 L (137-145) mmol/L Carbon Dioxide 18 L (22-30) mmol/L BUN 80 H (7-17) mg/dL Creatinine 2.87 H (0.52-1.04) mg/dL Glucose 126 H (74-99) mg/dL POC Glucose (mg/dL) (70-110) mg/dL Hemoglobin A1c (<=6.0) % Troponin I (0.000-0.034) ng/mL Total Protein 6.2 L (6.3-8.2) g/dL 08/31/22 08/31/22 09/01/22 Range/Units 15:19 19:59 06:05 WBC (3.8-10.6) k/uL RBC (3.80-5.40) m/uL Hgb (11.4-16.0) gm/dL Hct (34.0-46.0) % RDW (11.5-15.5) % Neutrophils # (1.3-7.7) k/uL Lymphocytes # (1.0-4.8) k/uL APTT (22.0-30.0) sec D-Dimer (<0.60) mg/L FEU Sodium (137-145) mmol/L Carbon Dioxide (22-30) mmol/L BUN (7-17) mg/dL Creatinine (0.52-1.04) mg/dL Glucose (74-99) mg/dL POC Glucose (mg/dL) 197 H 154 H (70-110) mg/dL Hemoglobin A1c (<=6.0) % Troponin I 0.156 H* (0.000-0.034) ng/mL Total Protein (6.3-8.2) g/dL 09/01/22 09/01/22 09/01/22 Range/Units 07:56 07:56 07:56 WBC (3.8-10.6) k/uL RBC 3.26 L (3.80-5.40) m/uL Hgb 9.3 L (11.4-16.0) gm/dL Hct 29.1 L (34.0-46.0) % RDW 16.0 H (11.5-15.5) % Neutrophils # (1.3-7.7) k/uL Lymphocytes # (1.0-4.8) k/uL APTT (22.0-30.0) sec D-Dimer (<0.60) mg/L FEU Sodium 136 L (137-145) mmol/L Carbon Dioxide (22-30) mmol/L BUN 81 H (7-17) mg/dL Creatinine 2.86 H (0.52-1.04) mg/dL Glucose 121 H (74-99) mg/dL POC Glucose (mg/dL) (70-110) mg/dL Hemoglobin A1c 7.6 H (<=6.0) % Troponin I (0.000-0.034) ng/mL Total Protein (6.3-8.2) g/dL 09/01/22 09/01/22 Range/Units 10:31 11:31 WBC (3.8-10.6) k/uL RBC (3.80-5.40) m/uL Hgb (11.4-16.0) gm/dL Hct (34.0-46.0) % RDW (11.5-15.5) % Neutrophils # (1.3-7.7) k/uL Lymphocytes # (1.0-4.8) k/uL APTT (22.0-30.0) sec D-Dimer (<0.60) mg/L FEU Sodium (137-145) mmol/L Carbon Dioxide (22-30) mmol/L BUN (7-17) mg/dL Creatinine (0.52-1.04) mg/dL Glucose (74-99) mg/dL POC Glucose (mg/dL) 315 H (70-110) mg/dL Hemoglobin A1c (<=6.0) % Troponin I 0.128 H* (0.000-0.034) ng/mL Total Protein (6.3-8.2) g/dL Assessment and Plan Assessment: Acute CHF exacerbation Acute hypoxic respiratory failure secondary to above Chronic kidney disease, unknown baseline with possible elements of acute kidney injury Elevated troponin could be secondary to kidney disease and heart failure Diabetes mellitus Hypertension Hyperlipidemia History of osteoarthritis Hypothyroidism History of sleep apnea on CPAP/BiPAP Plan: Continue with IV Lasix 40 mg twice daily Continue with aspirin Oxygen therapy Follow-up with cardiology and pulmonary Check echocardiogram Check renal ultrasound Check urine analysis Check bladder scan Follow-up ventilation perfusion scan Labs and medication were reviewed.. Continue same treatment. Continue with symptomatic treatment. Resume home medication. Monitor labs and vitals. DVT and GI prophylaxis. Further recommendations as per clinical course of the patient DVT prophylaxis: Subcutaneous heparin GI Prophylaxis: Pepcid PT/OT: Pending Prognosis is guarded
[2022-09-01 21:15] LABS: % Iron Saturation 5.84 (12.00-45.00)
[2022-09-01] MEDS: ASPIRIN 81 MG PO SCH (21:42)
[2022-09-01] MEDS: FUROSEMIDE 10 MG/ML 10 ML VIAL IV SCH (21:42)
[2022-09-01] MEDS: MELATONIN 5 MG TABLET PO SCH (21:43)
[2022-09-02 06:38] LABS: Glucose,Whole Blood 239 mg/dL (70-110)
[2022-09-02] MEDS: HEPARIN SODIUM,PORCINE/PF 5,000 UNIT/0.5 ML SYRINGE SQ SCH ×4 (08:28→22:54)
[2022-09-02] MEDS: FUROSEMIDE 10 MG/ML 10 ML VIAL IV SCH ×2 (08:35→21:03)
[2022-09-02] MEDS: INSULIN ASPART (NovoLOG) 100 UNIT/ML VIAL SQ SCH ×4 (08:35→21:03)
[2022-09-02] MEDS: PANTOPRAZOLE 40 MG TABLET PO SCH (08:36)
[2022-09-02] MEDS: ATORVASTATIN 20 MG TAB PO SCH (08:36)
[2022-09-02] MEDS: hydrALAZINE HCL 50 MG TAB PO SCH ×3 (08:36→21:03)
[2022-09-02] MEDS: NEBIVOLOL 5 MG TAB PO SCH ×2 (08:36→21:03)
[2022-09-02] MEDS: MULTIVITAMINS, THERA 1 EACH TAB PO SCH (08:36)
[2022-09-02] MEDS: CYANOCOBALAMIN 500 MCG TAB PO SCH (08:36)
[2022-09-02] MEDS: POTASSIUM CHLORIDE ER 20 MEQ TAB.ER PO SCH (08:37)
[2022-09-02] MEDS: LEVOTHYROXINE 75 MCG TAB PO SCH (08:38)
[2022-09-02] MEDS: busPIRone HCl 10 MG TAB PO SCH ×2 (08:38→21:03)
[2022-09-02] MEDS: allopurinoL 100 MG TAB PO SCH ×2 (08:40→21:03)
--- NOTE | 2022-09-02 10:54 | P.PN ---
Subjective Patient is seen for follow-up for chronic kidney disease and possible acute kidney injury. Patient has underlying CK D stage IV and was following with nephrology in [place]. She has moved to [place] and will be establishing nephrology clinic care here. Next Patient is admitted with shortness of breath and volume overload. She is currently being diuresed. Maintained on Lasix 60 mg IV every 12 hours. Urine output 1500 mL for 24 hours. Shortness of breath persists. Maintained on 6 L nasal cannula. Objective - Vital Signs Vital signs: Vital Signs Temp 97.6 F 09/02/22 08:19 Pulse 71 09/02/22 08:19 Resp 20 09/02/22 08:19 BP 146/57 09/02/22 08:19 Pulse Ox 92 L 09/02/22 08:25 FiO2 Intake & Output 09/01/22 09/02/22 09/02/22 18:59 06:59 18:59 Intake Total 298 240 Output Total 1050 450 Balance -752 -450 240 Weight 76.385 kg 66.5 kg 77 kg Intake: Oral 298 240 Output: Urine 1050 450 Other: Voiding Method External Catheter External Catheter External Catheter - Exam Patient is awake, comfortable, no acute distress Examination of the heart S1 and S2 Examination of the lungs bilateral breath sounds are heard, decreased breath sounds at the bases Abdomen is soft nontender Examination lower extremities shows edema 1+ bilaterally LAY BROTHER exam grossly intact - Labs CBC & Chem 7: 09/01/22 07:56 09/01/22 07:56 Labs: Abnormal Lab Results - Last 24 Hours (Table) 09/01/22 09/01/22 09/01/22 Range/Units 07:56 10:31 11:31 POC Glucose (mg/dL) 315 H (70-110) mg/dL Hemoglobin A1c 7.6 H (<=6.0) % Phosphorus (2.5-4.5) mg/dL Iron (50-170) UG/DL % Saturation (12.00-45.00) Transferrin (204.0-354.0) mg/dL Troponin I 0.128 H* (0.000-0.034) ng/mL PTH Intact (14.0-72.0) pg/mL Urine Protein (Negative) Urine Bacteria (None) /hpf Hyaline Casts (0-2) /lpf 09/01/22 09/01/22 09/01/22 Range/Units 12:23 13:22 13:22 POC Glucose (mg/dL) (70-110) mg/dL Hemoglobin A1c (<=6.0) % Phosphorus 4.6 H (2.5-4.5) mg/dL Iron 16 L (50-170) UG/DL % Saturation 5.84 L (12.00-45.00) Transferrin 196.0 L (204.0-354.0) mg/dL Troponin I 0.112 H* (0.000-0.034) ng/mL PTH Intact (14.0-72.0) pg/mL Urine Protein 1+ H (Negative) Urine Bacteria Rare H (None) /hpf Hyaline Casts 12 H (0-2) /lpf 09/01/22 09/01/22 09/01/22 Range/Units 13:30 16:09 20:14 POC Glucose (mg/dL) 235 H 280 H (70-110) mg/dL Hemoglobin A1c (<=6.0) % Phosphorus (2.5-4.5) mg/dL Iron (50-170) UG/DL % Saturation (12.00-45.00) Transferrin (204.0-354.0) mg/dL Troponin I (0.000-0.034) ng/mL PTH Intact 79.0 H (14.0-72.0) pg/mL Urine Protein (Negative) Urine Bacteria (None) /hpf Hyaline Casts (0-2) /lpf 09/02/22 Range/Units 06:36 POC Glucose (mg/dL) 239 H (70-110) mg/dL Hemoglobin A1c (<=6.0) % Phosphorus (2.5-4.5) mg/dL Iron (50-170) UG/DL % Saturation (12.00-45.00) Transferrin (204.0-354.0) mg/dL Troponin I (0.000-0.034) ng/mL PTH Intact (14.0-72.0) pg/mL Urine Protein (Negative) Urine Bacteria (None) /hpf Hyaline Casts (0-2) /lpf Assessment and Plan Assessment: 1. Chronic kidney disease NKF stage IV secondary to nephrosclerosis versus diabetic kidney disease. Baseline creatinine not available. Patient was following with a sap technical developer in [place] but has moved to [place] now. UA is benign with 1+ protein. Ultrasound is unremarkable. 2. Volume overload currently being diuresed 3. Acute CHF exacerbation, EF not known 4. Anemia of chronic disease rule out iron deficiency 5. Hypertension with CK D stage IV with volume overload 6. Iron deficiency 7. CK D mineral bone disorder with PTH and 25-hydroxy vitamin D level at goal. Plan: Continue with IV Lasix Follow-up on labs from today Add IV iron Repeat labs in a.m.
[2022-09-02] MEDS: DOCUSATE 100 MG CAP PO SCH ×2 (11:18→21:04)
[2022-09-02] MEDS: SODIUM FERRIC GLUCONAT-SUCROSE 125 MG in SODIUM CHLORIDE 0.9% 100 ML IVPB SCH (11:18)
[2022-09-02 11:33] LABS: Glucose,Whole Blood 321 mg/dL (70-110)
--- NOTE | 2022-09-02 11:47 | P.CNPUL ---
History of Present Illness Consult date: 09/02/22 Requesting physician: Chan Epps Reason for consult: dyspnea, hypoxemia, pleural effusion, abnormal CXR/CT Chief complaint: Shortness of breath. History of present illness: Pulmonary consult dated 09/02/2022. 87-year-old female who recently moved back to [place] from [place]. She presented to the emergency department on August 31, complaining of shortness of breath. The patient is currently seen today in room 366. Her 3 daughters are present. She apparently been having shortness breath for a number of days, and decided to come into the hospital to be evaluated. She does not have a family doctor in this area, and is hoping to establish herself with Dr. Chanell Turk. She does have a remote history of tobacco use. She smoked only socially. The patient denies a history of chronic lung disease. She appears to have diastolic CHF. Her chest x-ray was consistent with fluid overload, and her N-terminal proBNP was elevated. The patient's currently on 6 L of oxygen. She has been seen by cardiology. In addition to diastolic CHF, she has a history of hyperlipidemia, diabetes, hypothyroidism, insomnia, gastroesophageal reflux disease, and gout. Laboratory data from September 01 showed white count of 7.9, hemoglobin 9.3, hematocrit 29.1, and a normal platelet count. Sodium 136, potassium 3.5, chlorides 102, CO2 22, BUN 81, and creatinine 2.86. The patient's troponins were 0.156 and 0.112. N-terminal proBNP was 7580. Chest x- ray was consistent with fluid overload. Dopplers of the lower semis were negative. Pulmonary perfusion lung scan, was negative. Review of Systems REVIEW OF SYSTEMS: CONSTITUTIONAL: Weakness, and fatigue. NEUROLOGIC: [ Negative.] HEENT: [ Negative.] CARDIAC: [Negative.] PULMONARY: Shortness of breath. GI: [Negative.] : [Negative.] RHEUMATOLOGIC: [ Negative.] IMMUNOLOGIC: [ Negative.] ENDOCRINE: [Negative. ] DERMATOLOGIC: [Negative.] Past Medical History Past Medical History: Heart Failure Additional Past Medical History / Comment(s): CKD Stage 4 History of Any Multi-Drug Resistant Organisms: None Reported Past Surgical History: Appendectomy, Hysterectomy, Joint Replacement Additional Past Surgical History / Comment(s): L knee total hip. R side thyroid removal for benign growth. Past Anesthesia/Blood Transfusion Reactions: No Reported Reaction Past Psychological History: Anxiety Smoking Status: Former smoker Past Alcohol Use History: Rare - Past Family History Mother Additional Family Medical History / Comment(s): at 38 of a NH. Father Additional Family Medical History / Comment(s): at 58 of a CVA. Medications and Allergies Home Medications Medication Instructions Recorded Confirmed Type Aspirin EC [Ecotrin Low Dose] 81 mg PO HS 08/31/22 08/31/22 History Atorvastatin [Lipitor] 20 mg PO DAILY 08/31/22 08/31/22 History Bumetanide [BUMEX] 2 mg PO BID 08/31/22 08/31/22 History Cyanocobalamin (Vitamin B-12) 1,000 mcg PO DAILY 08/31/22 08/31/22 History [Vitamin B-12] Insulin NPH Hum/Reg Insulin Hm 10 unit SQ AC-BRKFST 08/31/22 08/31/22 History [Novolin 70-30 100 Unit/ml Vial] Insulin NPH Hum/Reg Insulin Hm 18 unit SQ AC-SUPPER 08/31/22 08/31/22 History [Novolin 70-30 100 Unit/ml Vial] Levothyroxine Sodium [Synthroid] 75 mcg PO DAILY 08/31/22 08/31/22 History Melatonin [Melatonin ER] 10 mg PO HS 08/31/22 08/31/22 History Multivitamins, Thera [Multivitamin 1 tab PO DAILY 08/31/22 08/31/22 History (formulary)] NIFEdipine XL [Procardia XL] 60 mg PO BID 08/31/22 08/31/22 History Nebivolol [Bystolic] 5 mg PO BID 08/31/22 08/31/22 History Omeprazole [PriLOSEC] 20 mg PO BID 08/31/22 08/31/22 History Potassium Chloride ER [K-Dur 20] 20 meq PO DAILY 08/31/22 08/31/22 History allopurinoL [Zyloprim] 100 mg PO BID 08/31/22 08/31/22 History busPIRone HCl [Buspar] 10 mg PO BID 08/31/22 08/31/22 History hydrALAZINE HCL [Apresoline] 50 mg PO TID 08/31/22 08/31/22 History predniSONE See Taper PO DAILY 08/31/22 08/31/22 History Allergies Allergy/AdvReac Type Severity Reaction Status Date / Time adhesive tape Allergy Unknown Verified 08/31/22 16:25 meperidine [From Demerol] Allergy Unknown Verified 08/31/22 16:24 methylprednisolone Allergy Unknown Verified 08/31/22 16:25 [From Medrol] Physical Exam Osteopathic Statement: *. No significant issues noted on an osteopathic structural exam other than those noted in the History and Physical/Consult. Vitals: Vital Signs Temp Pulse Resp BP Pulse Ox 09/02/22 11:30 97.5 F L 68 18 138/63 90 L 09/02/22 08:25 92 L 09/02/22 08:19 97.6 F 71 20 146/57 91 L 09/02/22 02:00 63 20 09/02/22 00:00 98.6 F 63 20 139/59 92 L 09/01/22 20:00 99.2 F 77 20 165/68 90 L 09/01/22 15:29 98.0 F 72 20 166/69 90 L 09/01/22 12:02 70 18 161/61 92 L Intake and Output 09/01/22 09/02/22 09/02/22 22:59 06:59 14:59 Intake Total 180 240 Output Total 225 225 Balance -45 -225 240 Intake: Oral 180 240 Output: Urine 225 225 Other: Voiding Method External Catheter External Catheter External Catheter Weight 66.5 kg 77 kg No acute distress, oriented 3. Currently the patient's on 6 L. Saturations are between 90% and 92%. HEENT examination is grossly unremarkable. Mucous membranes are moist. No oral lesions. Neck supple. Full range of motion. No adenopathy thyromegaly or neck vein distention. Cardiovascular examination reveals regular rhythm rate. S1-S2 normal. No S3 or S4. Heart sounds are distant. Heart rate 68 bpm. A soft systolic murmur is noted. Lungs reveal scattered rhonchi and crackles. No wheezes. Breath sounds equal bilaterally. Abdomen soft bowel sounds are heard. No masses or tenderness. Extremities are intact. No cyanosis clubbing or edema. Skin is without rash or lesion. Neurologic examination is brief but nonfocal. Results - Laboratory Findings CBC and BMP: 09/01/22 07:56 09/01/22 07:56 PT/INR, D-dimer PT 9.9 sec (9.0-12.0) 08/31/22 15:19 INR 0.9 (<1.2) 08/31/22 15:19 D-Dimer 2.30 mg/L FEU (<0.60) H 08/31/22 15:19 Abnormal lab findings: Abnormal Labs 08/31/22 08/31/22 08/31/22 15:19 15:19 15:19 WBC 11.4 H RBC 3.55 L Hgb 10.5 L Hct 32.2 L RDW 15.8 H Neutrophils # 10.0 H Lymphocytes # 0.7 L APTT 20.4 L D-Dimer 2.30 H Sodium 135 L Carbon Dioxide 18 L BUN 80 H Creatinine 2.87 H Glucose 126 H POC Glucose (mg/dL) Hemoglobin A1c Phosphorus Iron % Saturation Transferrin Troponin I Total Protein 6.2 L PTH Intact Urine Protein Urine Bacteria Hyaline Casts 08/31/22 08/31/22 09/01/22 15:19 19:59 06:05 WBC RBC Hgb Hct RDW Neutrophils # Lymphocytes # APTT D-Dimer Sodium Carbon Dioxide BUN Creatinine Glucose POC Glucose (mg/dL) 197 H 154 H Hemoglobin A1c Phosphorus Iron % Saturation Transferrin Troponin I 0.156 H* Total Protein PTH Intact Urine Protein Urine Bacteria Hyaline Casts 09/01/22 09/01/22 09/01/22 07:56 07:56 07:56 WBC RBC 3.26 L Hgb 9.3 L Hct 29.1 L RDW 16.0 H Neutrophils # Lymphocytes # APTT D-Dimer Sodium 136 L Carbon Dioxide BUN 81 H Creatinine 2.86 H Glucose 121 H POC Glucose (mg/dL) Hemoglobin A1c 7.6 H Phosphorus Iron % Saturation Transferrin Troponin I Total Protein PTH Intact Urine Protein Urine Bacteria Hyaline Casts 09/01/22 09/01/22 09/01/22 10:31 11:31 12:23 WBC RBC Hgb Hct RDW Neutrophils # Lymphocytes # APTT D-Dimer Sodium Carbon Dioxide BUN Creatinine Glucose POC Glucose (mg/dL) 315 H Hemoglobin A1c Phosphorus Iron % Saturation Transferrin Troponin I 0.128 H* Total Protein PTH Intact Urine Protein 1+ H Urine Bacteria Rare H Hyaline Casts 12 H 09/01/22 09/01/22 09/01/22 13:22 13:22 13:30 WBC RBC Hgb Hct RDW Neutrophils # Lymphocytes # APTT D-Dimer Sodium Carbon Dioxide BUN Creatinine Glucose POC Glucose (mg/dL) Hemoglobin A1c Phosphorus 4.6 H Iron 16 L % Saturation 5.84 L Transferrin 196.0 L Troponin I 0.112 H* Total Protein PTH Intact 79.0 H Urine Protein Urine Bacteria Hyaline Casts 09/01/22 09/01/22 09/02/22 16:09 20:14 06:36 WBC RBC Hgb Hct RDW Neutrophils # Lymphocytes # APTT D-Dimer Sodium Carbon Dioxide BUN Creatinine Glucose POC Glucose (mg/dL) 235 H 280 H 239 H Hemoglobin A1c Phosphorus Iron % Saturation Transferrin Troponin I Total Protein PTH Intact Urine Protein Urine Bacteria Hyaline Casts 09/02/22 11:31 WBC RBC Hgb Hct RDW Neutrophils # Lymphocytes # APTT D-Dimer Sodium Carbon Dioxide BUN Creatinine Glucose POC Glucose (mg/dL) 321 H Hemoglobin A1c Phosphorus Iron % Saturation Transferrin Troponin I Total Protein PTH Intact Urine Protein Urine Bacteria Hyaline Casts - Diagnostic Findings Chest x-ray: image reviewed U/S of Legs: image reviewed Assessment and Plan Assessment: Acute hypoxemic respiratory failure, secondary to acute on chronic diastolic CHF. History of diabetes mellitus. Chronic kidney disease. History of hyperlipidemia. History of hypothyroidism. History of hypertension. History of gastroesophageal reflux disease. History of gout. Remote history of tobacco use. Plan: Plan dated 09/02/2022. The patient appears not have any significant pulmonary disease. I believe most of her shortness of breath and hypoxemia relates to diastolic CHF. She is currently on 6 L of oxygen, with saturations between 90% and 92%. N-terminal proBNP was elevated. The patient has been seen by cardiology. We will continue to follow make recommendations along the way. Prognosis is guarded. The patient currently does not have a family doctor, but is hoping to get in with Dr. Chanell Turk. Prognosis is guarded. Time with Patient: Greater than 30
--- NOTE | 2022-09-02 13:41 | P.PN ---
Subjective Progress Note Date: 09/02/22 History of present illness: This is an 87-year-old female patient here from [place] with extensive past me dical history including chronic kidney disease stage IV, chronic heart failure, hypertension, hyperlipidemia, hypothyroidism, diabetes mellitus type 2, gastroesophageal reflux disease. Patient states that she has had a total of 6 hospitalizations since April of this year while in [place]. She had 4 alone in July for kidney failure and heart failure. She denies any history of cardiac surgeries. She states she's had increased weight gain, lower extremity edema and wheezing, chills. She is not on home oxygen therapy. Patient denies having any chest pain, continues to have shortness of breath and dyspnea on exertion. EKG sinus rhythm with low voltage Chest x-ray: Acute cardiopulmonary disease disease most consistent with moderate to marked CHF. Right lower extremity venous Doppler study was negative for DVT. VQ scan negative for pulmonary embolism Renal ultrasound revealed thinning of the renal courses could indicate early renal failure. WBC 7.9, hemoglobin 9.3, platelet count 277. D-dimer 2.3. Sodium 136, potassium 3.5, BUN 81 creatinine 2.86. Glucose 121. Troponin 0.156. ProBNP 7580. Liver function tests are normal. Magnesium 2.3. Home cardiac medications: Aspirin 81 mg daily, Lipitor 20 mg daily, Bumex 2 mg twice daily, hydralazine 50 mg 3 times daily, Bystolic 5 mg twice daily, Procardia XL 60 mg twice daily, potassium chloride, levothyroxine 75 g daily. Patient continues to have shortness of breath. Oxygen has been increased from 4 L to 6 L nasal cannula. She still thinks she has diarrhea she's been continued on IV Lasix 60 mg every 12 hours. She is a -1200 mL balance. Weights do not seem to be accurate. Echocardiogram reveals normal LV size and systolic function. Elevated RVSP of 60 mmHg. Patient denies history of smoking. She does have a CPAP at home. Repeat troponins were 0.128 and 0.112 Physical examination: Gen: This is an 87-year-old female. She is resting in bed and appears to be in no acute distress. VS: reviewed. Blood pressure 138/63, heart rate in the 60s and 70s, pulse ox 90 % on 6 L nasal cannula, afebrile. HEENT: Head is atraumatic, normocephalic. Pupils equal, round. Sclerae is anicteric. NECK: Supple. No JVD. . LUNGS: Diminished with scattered wheezing. No intercostal retractions. HEART: Regular rate and rhythm. No murmur. ABDOMEN: Soft EXTREMITIES: No bilateral pedal edema. NEUROLOGICAL: Patient is awake, alert and oriented x3. Assessment: Acute on chronic heart failure Elevated troponin Hypertension Hyperlipidemia Hypothyroidism Diabetes mellitus 2 Gastroesophageal reflux disease Plan: Continue patient's home cardiac medications Continue IV Lasix 60 mg every 12 hours, monitor I&O, daily weights, electrolytes and renal function Obtain records from patient's hospital stay in [facility]. Further recommendations to follow based upon clinical course Nurse practitioner note has been reviewed, I agree with documented findings and plan of care. Patient was seen and examined. Objective - Vital Signs Vital signs: Vital Signs Temp 97.6 F 09/02/22 08:19 Pulse 71 09/02/22 08:19 Resp 20 09/02/22 08:19 BP 146/57 09/02/22 08:19 Pulse Ox 92 L 09/02/22 08:25 FiO2 Intake & Output 09/01/22 09/02/22 09/02/22 18:59 06:59 18:59 Intake Total 298 240 Output Total 1050 450 Balance -752 -450 240 Weight 76.385 kg 66.5 kg 77 kg Intake: Oral 298 240 Output: Urine 1050 450 Other: Voiding Method External Catheter External Catheter External Catheter - Labs CBC & Chem 7: 09/01/22 07:56 09/01/22 07:56 Labs: Abnormal Lab Results - Last 24 Hours (Table) 09/01/22 09/01/22 09/01/22 Range/Units 07:56 10:31 11:31 POC Glucose (mg/dL) 315 H (70-110) mg/dL Hemoglobin A1c 7.6 H (<=6.0) % Phosphorus (2.5-4.5) mg/dL Iron (50-170) UG/DL % Saturation (12.00-45.00) Transferrin (204.0-354.0) mg/dL Troponin I 0.128 H* (0.000-0.034) ng/mL PTH Intact (14.0-72.0) pg/mL Urine Protein (Negative) Urine Bacteria (None) /hpf Hyaline Casts (0-2) /lpf 09/01/22 09/01/22 09/01/22 Range/Units 12:23 13:22 13:22 POC Glucose (mg/dL) (70-110) mg/dL Hemoglobin A1c (<=6.0) % Phosphorus 4.6 H (2.5-4.5) mg/dL Iron 16 L (50-170) UG/DL % Saturation 5.84 L (12.00-45.00) Transferrin 196.0 L (204.0-354.0) mg/dL Troponin I 0.112 H* (0.000-0.034) ng/mL PTH Intact (14.0-72.0) pg/mL Urine Protein 1+ H (Negative) Urine Bacteria Rare H (None) /hpf Hyaline Casts 12 H (0-2) /[facility] 09/01/22 09/01/22 09/01/22 Range/Units 13:30 16:09 20:14 POC Glucose (mg/dL) 235 H 280 H (70-110) mg/dL Hemoglobin A1c (<=6.0) % Phosphorus (2.5-4.5) mg/dL Iron (50-170) UG/DL % Saturation (12.00-45.00) Transferrin (204.0-354.0) mg/dL Troponin I (0.000-0.034) ng/mL PTH Intact 79.0 H (14.0-72.0) pg/mL Urine Protein (Negative) Urine Bacteria (None) /hpf Hyaline Casts (0-2) /[facility] 09/02/22 Range/Units 06:36 POC Glucose (mg/dL) 239 H (70-110) mg/dL Hemoglobin A1c (<=6.0) % Phosphorus (2.5-4.5) mg/dL Iron (50-170) UG/DL % Saturation (12.00-45.00) Transferrin (204.0-354.0) mg/dL Troponin I (0.000-0.034) ng/mL PTH Intact (14.0-72.0) pg/mL Urine Protein (Negative) Urine Bacteria (None) /hpf Hyaline Casts (0-2) /[facility]
[2022-09-02 16:31] LABS: Glucose,Whole Blood 340 mg/dL (70-110)
[2022-09-02] MEDS ORDERED: INSULN ASP PRT/INSULIN ASPART 100 UNIT/ML 10 ML VIAL SQ SCH (17:30)
[2022-09-02 20:12] LABS: Glucose,Whole Blood 305 mg/dL (70-110)
[2022-09-02] MEDS: MELATONIN 5 MG TABLET PO SCH (21:03)
[2022-09-02] MEDS: ASPIRIN 81 MG PO SCH (21:04)
[2022-09-03 06:25] LABS: Glucose,Whole Blood 233 mg/dL (70-110)
[2022-09-03] MEDS: INSULIN ASPART (NovoLOG) 100 UNIT/ML VIAL SQ SCH ×4 (06:27→21:06)
[2022-09-03] MEDS: LEVOTHYROXINE 75 MCG TAB PO SCH (06:27)
[2022-09-03] MEDS: PANTOPRAZOLE 40 MG TABLET PO SCH (06:28)
[2022-09-03] MEDS ORDERED: INSULN ASP PRT/INSULIN ASPART 100 UNIT/ML 10 ML VIAL SQ SCH ×2 (07:30)
--- NOTE | 2022-09-03 07:53 | P.PN ---
Subjective This is a pleasant 87 years old female with past medical history of chronic kidney disease, chronic heart failure, hypertension, hyperlipidemia, hyp othyroidism, diabetes mellitus, history of GERD. Patient was recently moved from [place] back to [place]. Patient states she came because of dyspnea and leg swelling for 1 month, last night she flew from [place] back to [place], [place] she was hospitalized 6 type sutures than 4 heart failure any disease diabetes mellitus and hypertension. not on a blood thinner and takes low-dose aspirin She denies any chest pain. She has little dry cough. She feels generally weak She has some mild right chest discomfort for the last 3 hours Nonspecific no recuperating or aggravating factors it has been going on for last 2 months, comes and goes. Patient uses CPAP machine at night. She's been constipated other than that she denies any specific GI urinary or neurological symptoms She quit smoking 40 years ago and drinking alcohol 20 years ago. No illicit drugs. She's been complaining of from right calf pain and ultrasound was negative for DVT. She is not on oxygen at home She moved to [place] with her daughters On admission she is afebrile, mildly tachypneic, hypertensive and she was sat urating 91% on 4 L oxygen via nasal cannula improved to 95% She has mild leukocytosis of 11.4, hemoglobin 10.5. Risks of CBC is unremarkable. D-dimer 2.3. BMP showing a creatinine of 2.8, unknown baseline Glucose 126. Liver enzymes unremarkable Elevated troponin 0.15. ProBNP is elevated 7580. EKG showing normal sinus rhythm with no significant ST-T changes and QTC 410. Chest x-ray: CHF Venous Doppler showed no evidence of deep venous thrombosis Ventilation perfusion this is ordered and is pending. 09/01/2022 Patient clinically the same she still fluid overload that she still feels dyspneic with bilateral leg swelling she made ordered tomorrow on urine on IV Lasix 40 mg twice daily, partly because of her advanced kidney disease, pulse the it is a stage IV chronic kidney disease, renal ultrasound showing no hydronephrosis. Bladder scan is still pending. Urine analysis is negative for infection. Cardiology evaluated the patient and recommended to continue with the same Echocardiogram showed ejection fraction 72% with moderate mitral regurgitation. Continue with home dose of aspirin 81 mg going to increase Lasix to 60 mg twice daily to increase urine output and also put the patient on fluids resection 1000 per day 09/02/2022 Patient remains hypoxic and improving slowly and gradually. Her dyspnea also is slightly better. She's on 6 L oxygen via nasal cannula She's have chronic kidney disease and increase her IV Lasix to 60 mg twice daily, she has better urine output. Patient also on fluid restriction. Continue dose of aspirin Objective - Vital Signs Vital signs: Vital Signs Temp 97.5 F L 09/02/22 11:30 Pulse 68 09/02/22 11:30 Resp 18 09/02/22 11:30 BP 138/63 09/02/22 11:30 Pulse Ox 90 L 09/02/22 11:30 FiO2 Intake & Output 09/01/22 09/02/22 09/02/22 18:59 06:59 18:59 Intake Total 298 240 Output Total 1050 450 Balance -752 -450 240 Weight 76.385 kg 66.5 kg 77 kg Intake: Oral 298 240 Output: Urine 1050 450 Other: Voiding Method External Catheter External Catheter External Catheter - Exam GENERAL: The patient is alert and oriented x3, not in any acute distress. Well developed, well nourished. HEENT: Pupils are round and equally reacting to light. EOMI. No scleral icterus. No conjunctival pallor. Normocephalic, atraumatic. No pharyngeal erythema. No thyromegaly. CARDIOVASCULAR: S1 and S2 present. No murmurs, rubs, or gallops. -PULMONARY: Chest is clear to auscultation, no wheezing . Mild bilateral basal crackles. ABDOMEN: Soft, nontender, nondistended, normoactive bowel sounds. No palpable organomegaly. MUSCULOSKELETAL: No joint swelling or deformity. -EXTREMITIES: No cyanosis, clubbing, . Bilateral pitting leg leg edema. NEUROLOGICAL: Gross neurological examination did not reveal any focal deficits. SKIN: No rashes. no petechiae. - Labs CBC & Chem 7: 09/01/22 07:56 09/01/22 07:56 Labs: Abnormal Lab Results - Last 24 Hours (Table) 09/01/22 09/01/22 09/01/22 Range/Units 12:23 13:22 13:22 POC Glucose (mg/dL) (70-110) mg/dL Phosphorus 4.6 H (2.5-4.5) mg/dL Iron 16 L (50-170) UG/DL % Saturation 5.84 L (12.00-45.00) Transferrin 196.0 L (204.0-354.0) mg/dL Troponin I 0.112 H* (0.000-0.034) ng/mL PTH Intact (14.0-72.0) pg/mL Urine Protein 1+ H (Negative) Urine Bacteria Rare H (None) /hpf Hyaline Casts 12 H (0-2) /lpf 09/01/22 09/01/22 09/01/22 Range/Units 13:30 16:09 20:14 POC Glucose (mg/dL) 235 H 280 H (70-110) mg/dL Phosphorus (2.5-4.5) mg/dL Iron (50-170) UG/DL % Saturation (12.00-45.00) Transferrin (204.0-354.0) mg/dL Troponin I (0.000-0.034) ng/mL PTH Intact 79.0 H (14.0-72.0) pg/mL Urine Protein (Negative) Urine Bacteria (None) /hpf Hyaline Casts (0-2) /lpf 09/02/22 09/02/22 Range/Units 06:36 11:31 POC Glucose (mg/dL) 239 H 321 H (70-110) mg/dL Phosphorus (2.5-4.5) mg/dL Iron (50-170) UG/DL % Saturation (12.00-45.00) Transferrin (204.0-354.0) mg/dL Troponin I (0.000-0.034) ng/mL PTH Intact (14.0-72.0) pg/mL Urine Protein (Negative) Urine Bacteria (None) /hpf Hyaline Casts (0-2) /lpf Assessment and Plan Assessment: Acute CHF exacerbation Acute hypoxic respiratory failure secondary to above Chronic kidney disease, unknown baseline with possible elements of acute kidney injury Elevated troponin could be secondary to kidney disease and heart failure Diabetes mellitus Hypertension Hyperlipidemia History of osteoarthritis Hypothyroidism History of sleep apnea on CPAP/BiPAP Plan: Continue with IV Lasix 40 mg twice daily Continue with aspirin Oxygen therapy Follow-up with cardiology and pulmonary Check echocardiogram Check renal ultrasound Check urine analysis Check bladder scan Follow-up ventilation perfusion scan Labs and medication were reviewed.. Continue same treatment. Continue with symptomatic treatment. Resume home medication. Monitor labs and vitals. DVT and GI prophylaxis. Further recommendations as per clinical course of the patient DVT prophylaxis: Subcutaneous heparin GI Prophylaxis: Pepcid PT/OT: Pending Prognosis is guarded
[2022-09-03] MEDS: HEPARIN SODIUM,PORCINE/PF 5,000 UNIT/0.5 ML SYRINGE SQ SCH ×3 (08:15→23:46)
[2022-09-03] MEDS: FUROSEMIDE 10 MG/ML 10 ML VIAL IV SCH ×3 (08:15→23:46)
[2022-09-03] MEDS: DOCUSATE 100 MG CAP PO SCH ×2 (08:16→21:06)
[2022-09-03] MEDS: MULTIVITAMINS, THERA 1 EACH TAB PO SCH (08:16)
[2022-09-03] MEDS: POTASSIUM CHLORIDE ER 20 MEQ TAB.ER PO SCH (08:16)
[2022-09-03] MEDS: CYANOCOBALAMIN 500 MCG TAB PO SCH (08:16)
[2022-09-03] MEDS: ATORVASTATIN 20 MG TAB PO SCH (08:16)
[2022-09-03] MEDS: allopurinoL 100 MG TAB PO SCH ×2 (08:16→21:05)
[2022-09-03] MEDS: hydrALAZINE HCL 50 MG TAB PO SCH ×3 (08:17→21:06)
[2022-09-03] MEDS: NEBIVOLOL 5 MG TAB PO SCH ×2 (08:17→21:06)
[2022-09-03] MEDS: busPIRone HCl 10 MG TAB PO SCH ×2 (08:17→21:06)
[2022-09-03] MEDS: SODIUM FERRIC GLUCONAT-SUCROSE 125 MG in SODIUM CHLORIDE 0.9% 100 ML IVPB SCH (08:20)
[2022-09-03 11:19] LABS: Glucose,Whole Blood 226 mg/dL (70-110)
--- NOTE | 2022-09-03 11:33 | P.PN ---
Subjective Progress Note Date: 09/03/22 Principal diagnosis: Shortness of breath. Pulmonary consult dated 09/02/2022. 87-year-old female who recently moved back to [place] from [place]. She presented to the emergency department on August 31, complaining of shortness of breath. The patient is currently seen today in room 366. Her 3 daughters are present. She apparently been having shortness breath for a number of days, and decided to come into the hospital to be evaluated. She does not have a family doctor in this area, and is hoping to establish herself with Dr. Chanell Turk. She does have a remote history of tobacco use. She smoked only socially. The patient denies a history of chronic lung disease. She appears to have diastolic CHF. Her chest x-ray was consistent with fluid overload, and her N-terminal proBNP was elevated. The patient's currently on 6 L of oxygen. She has been seen by cardiology. In addition to diastolic CHF, she has a history of hyperlipidemia, diabetes, hypothyroidism, insomnia, gastroesophageal reflux disease, and gout. Laboratory data from September 01 showed white count of 7.9, hemoglobin 9.3, hematocrit 29.1, and a normal platelet count. Sodium 136, potassium 3.5, chlorides 102, CO2 22, BUN 81, and creatinine 2.86. The patient's troponins were 0.156 and 0.112. N-terminal proBNP was 7580. Chest x- ray was consistent with fluid overload. Dopplers of the lower semis were negative. Pulmonary perfusion lung scan, was negative. Progress note dated 09/03/2022. The patient is seen today in room 366. She was seen in consultation yesterday. Please see the note above. She remains on saline at 10 mL an hour, and also oxygen is 7 L nasal cannula. She was admitted with a diagnosis of CHF. She has diastolic CHF. Currently, she seems to be doing about the same, no better, but no worse. No new labs today other than a blood glucose of 226. A repeat chest x-ray was ordered for tomorrow. Objective - Vital Signs Vital signs: Vital Signs Temp 97.6 F 09/03/22 08:07 Pulse 70 09/03/22 08:07 Resp 22 09/03/22 08:07 BP 149/62 09/03/22 08:07 Pulse Ox 91 L 09/03/22 09:29 FiO2 Intake & Output 09/02/22 09/03/22 09/03/22 18:59 06:59 18:59 Intake Total 450 240 368 Output Total 300 800 Balance 150 -560 368 Weight 77 kg 69.5 kg Intake: IV 10 Invasive Line 1 10 Intake, IV Titration 100 240 Amount Sodium Ferric Gluconat- 100 240 Sucrose 125 mg In Sodium Chloride 0.9% 100 ml @ 100 mls/hr IVPB DAILY [facility] Rx#:[id number] Oral 350 358 Output: Urine 300 800 Other: Voiding Method External Catheter External Catheter - Exam No acute distress, oriented 3. Currently the patient's on 7 L. Saturations are between 91% and 94%. HEENT examination is grossly unremarkable. Mucous membranes are moist. No oral lesions. Neck supple. Full range of motion. No adenopathy thyromegaly or neck vein distention. Cardiovascular examination reveals regular rhythm rate. S1-S2 normal. No S3 or S4. Heart sounds are distant. Heart rate 73 bpm. A soft systolic murmur is noted. Lungs reveal scattered rhonchi and crackles. No wheezes. Breath sounds equal bilaterally. Abdomen soft bowel sounds are heard. No masses or tenderness. Extremities are intact. No cyanosis clubbing or edema. Skin is without rash or lesion. Neurologic examination is brief but nonfocal. - Labs CBC & Chem 7: 09/01/22 07:56 09/01/22 07:56 Labs: Abnormal Lab Results - Last 24 Hours (Table) 09/02/22 09/02/22 09/02/22 Range/Units 11:31 16:30 20:10 POC Glucose (mg/dL) 321 H 340 H 305 H (70-110) mg/dL 09/03/22 09/03/22 Range/Units 06:24 11:16 POC Glucose (mg/dL) 233 H 226 H (70-110) mg/dL Assessment and Plan Assessment: Acute hypoxemic respiratory failure, secondary to acute on chronic diastolic CHF. History of diabetes mellitus. Chronic kidney disease. History of hyperlipidemia. History of hypothyroidism. History of hypertension. History of gastroesophageal reflux disease. History of gout. Remote history of tobacco use. Plan: Plan dated 09/02/2022. The patient appears not have any significant pulmonary disease. I believe most of her shortness of breath and hypoxemia relates to diastolic CHF. She is currently on 6 L of oxygen, with saturations between 90% and 92%. N-terminal proBNP was elevated. The patient has been seen by cardiology. We will continue to follow make recommendations along the way. Prognosis is guarded. The patient currently does not have a family doctor, but is hoping to get in with Dr. Chanell Turk. Prognosis is guarded. Plan dated 09/03/2022. The patient remains on high flow oxygen at 7 L nasal cannula. Chest x-ray was ordered for tomorrow. The patient feels about the same today as she did yesterday. She doesn't feel any better or any worse. Labs, x-rays, and medications are all reviewed. The patient's overall prognosis remains guarded. We will continue to follow the patient and make recommendations along the way. Time with Patient: Less than 30
--- NOTE | 2022-09-03 11:38 | P.PN ---
Subjective Patient is seen for follow-up for chronic kidney disease and possible acute kidney injury. Patient has underlying CK D stage IV and was following with nephrology in [place]. She has moved to [place] and will be establishing nephrology clinic care here. Patient is admitted with shortness of breath and volume overload. She is currently being diuresed. Maintained on Lasix 60 mg IV every 12 hours. Urine output 1100 mL for 24 hours. Shortness of breath persists. Maintained on 7 L nasal cannula. Objective - Vital Signs Vital signs: Vital Signs Temp 97.6 F 09/03/22 08:07 Pulse 70 09/03/22 08:07 Resp 22 09/03/22 08:07 BP 149/62 09/03/22 08:07 Pulse Ox 91 L 09/03/22 09:29 FiO2 Intake & Output 09/02/22 09/03/22 09/03/22 18:59 06:59 18:59 Intake Total 450 240 368 Output Total 300 800 Balance 150 -560 368 Weight 77 kg 69.5 kg Intake: IV 10 Invasive Line 1 10 Intake, IV Titration 100 240 Amount Sodium Ferric Gluconat- 100 240 Sucrose 125 mg In Sodium Chloride 0.9% 100 ml @ 100 mls/hr IVPB DAILY [facility] Rx#:[id number] Oral 350 358 Output: Urine 300 800 Other: Voiding Method External Catheter External Catheter - Exam Patient is awake, comfortable, no acute distress Examination of the heart S1 and S2 Examination of the lungs bilateral breath sounds are heard, decreased breath sounds at the bases Abdomen is soft nontender Examination lower extremities shows edema 1+ bilaterally [employer]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 Chronic kidney disease NKF stage IV secondary to nephrosclerosis versus diabetic kidney disease. Baseline creatinine not available. Patient was following with a building attendant in [place] but has moved to [place] now. UA is benign with 1+ protein. Ultrasound is unremarkable. 2. Volume overload currently being diuresed 3. Acute CHF exacerbation, EF not known 4. Anemia of chronic disease rule out iron deficiency 5. Hypertension with CK D stage IV with volume overload 6. Iron deficiency 7. CK D mineral bone disorder with PTH and 25-hydroxy vitamin D level at goal. Plan: Continue with IV Lasix. Increase dose to 80 mg IV every 8 hours Follow-up on labs from today Add IV iron Repeat labs in a.m.
[2022-09-03 11:53] LABS: Basophils % (A) 0 %; Eosinophils # (A) 0.2 k/uL (0-0.7); Eosinophils % (A) 2 %; HGB 9.7 gm/dL (11.4-16.0); Lymphocytes # (A) 1.5 k/uL (1.0-4.8); Lymphocytes % (A) 15 %; MCH 28.7 pg (25.0-35.0); MCHC 32.2 g/dL (31.0-37.0); Mean Platelet Volume 9.5; Monocytes # (A) 0.5 k/uL (0-1.0); Monocytes % (A) 6 %; Neutrophils # (A) 7.2 k/uL (1.3-7.7); Neutrophils % (A) 74 %; Platelet Count 338 k/uL (150-450); RBC 3.37 m/uL (3.80-5.40); RDW 15.9 % (11.5-15.5); WBC 9.7 k/uL (3.8-10.6)
[2022-09-03 12:08] LABS: African American GFR (CKD) 13 (>60 ml/min/1.73 sqM); Anion Gap 12 mmol/L; Blood Urea Nitrogen 88 mg/dL (7-17); Calcium 8.1 mg/dL (8.4-10.2); Carbon Dioxide 20 mmol/L (22-30); Chloride 100 mmol/L (98-107); Glucose 209 mg/dL (74-99); Non-African American GFR(CKD) 11 (>60 ml/min/1.73 sqM); Potassium 4.1 mmol/L (3.5-5.1); Sodium 132 mmol/L (137-145)
[2022-09-03] MEDS ORDERED: MAG HYDROX/AL HYDROX/SIMETH 30 ML CUP PO PRN (12:33)
--- NOTE | 2022-09-03 13:16 | CDI ---
Documentation Clarification Form Date: 09/03/2022 01:12:09 PM From: Beckie Sosa RN, CCDS Email: [email or web address] Admit Date: 08/31/2022 05:43:00 PM Patient Name: Khushbu Salomon Visit Number: [id number] Discharge Date: ATTENTION: The Clinical Documentation Specialists (CDI) and [facility] Coding Staff appreciate your assistance in clarifying documentation. Please respond to the clarification below the line at the bottom and electronically sign. The CDI & [facility] Coding staff will review the response and follow-up if needed. Please note: Queries are made part of the Legal Health Record. If you have any questions, please contact the author of this message via ITS. Dr. Turner E Sheet Your patient has elevated troponin levels. Please clarify if there is an additional diagnosis and/or clinical significance related to this value. Patient history/risk factors: CKD, CHF, HTN, HLD and DM. Recent move from [place]. Came in with dyspnea and leg swelling. Admitted with CHF exacerbation. Clinical indicators: H&P: "Elevated troponin could be secondary to kidney disease and heart failure." 09/02 Cardiology: "Elevated troponin." 08/31 Troponin 0.156, BNP 7580, Cr 2.87 09/01 Troponins: 0.128-0.112 09/03 Cr 3.56 08/31 EKG: SR w first degree AVB Echo: Elevated right ventricular systolic pressures Treatment: IV Lasix 40mg Q12H 09/01; 60mg 09/01-09/03; 80mg 09/03. I&O's Daily weights Monitor renal function Oxygen Is there an additional diagnosis and/or clinical significance related to the above lab result/information: [ ] Type 2 IL due to CHF and kidney disease [ ] Non-ischemic myocardial injury [ ] No additional diagnosis/Not clinically significant [ ] Other, please specify [ ] Unable to determine Unable to determine MTDD
--- NOTE | 2022-09-03 14:34 | P.PN ---
Subjective Progress Note Date: 09/03/22 This is a pleasant 87 years old female with past medical history of chronic kidney disease, chronic heart failure, hypertension, hyperlipidemia, hypothyroidism, diabetes mellitus, history of GERD. Patient was recently moved from [place] back to [place]. Patient states she came because of dyspnea and leg swelling for 1 month, last night she flew from [place] back to [place], Patient uses CPAP machine at night. She's been constipated other than that she denies any specific GI urinary or neurological symptoms She quit smoking 40 years ago and drinking alcohol 20 years ago. No illicit drugs. She's been complaining of from right calf pain and ultrasound was negative for DVT. She is not on oxygen at home She moved to [place] with her daughters On admission she is afebrile, mildly tachypneic, hypertensive and she was saturating 91% on 4 L oxygen via nasal cannula improved to 95% She has mild leukocytosis of 11.4, hemoglobin 10.5. Risks of CBC is unremarkable. D-dimer 2.3. BMP showing a creatinine of 2.8, unknown baseline Glucose 126. Liver enzymes unremarkable Elevated troponin 0.15. ProBNP is elevated 7580. EKG showing normal sinus rhythm with no significant ST-T changes and QTC 410. Chest x-ray: CHF Venous Doppler showed no evidence of deep venous thrombosis Ventilation perfusion this is ordered and is pending. 09/01/2022 Patient clinically the same she still fluid overload that she still feels dyspneic with bilateral leg swelling she made ordered tomorrow on urine on IV Lasix 40 mg twice daily, partly because of her advanced kidney disease, pulse the it is a stage IV chronic kidney disease, renal ultrasound showing no hydronephrosis. Bladder scan is still pending. Urine analysis is negative for infection. Cardiology evaluated the patient and recommended to continue with the same Echocardiogram showed ejection fraction 72% with moderate mitral regurgitation. Continue with home dose of aspirin 81 mg going to increase Lasix to 60 mg twice daily to increase urine output and also put the patient on fluids resection 1000 per day 09/02/2022 Patient remains hypoxic and improving slowly and gradually. Her dyspnea also is slightly better. She's on 6 L oxygen via nasal cannula She's have chronic kidney disease and increase her IV Lasix to 60 mg twice daily, she has better urine output. Patient also on fluid restriction. Continue dose of aspirin 09/03 patient seen and examined. States she feels better compared to yesterday. Currently on 5 L of oxygen REVIEW OF SYSTEMS: CONSTITUTIONAL: No fever, no malaise,. CARDIOVASCULAR: No chest pain, no palpitations, no syncope. PULMONARY: No shortness of breath, no cough, GASTROINTESTINAL: No diarrhea, no nausea, no vomiting, no abdominal pain. NEUROLOGICAL: No headaches, no weakness, PHYSICAL EXAMINATION: GENERAL: The patient is alert and oriented x3, not in any acute distress. Well developed, well nourished. HEENT: Pupils are round and equally reacting to light. EOMI. No scleral icterus. No conjunctival pallor. Normocephalic, atraumatic. No pharyngeal erythema. No thyromegaly. CARDIOVASCULAR: S1 and S2 present. No murmurs, rubs, or gallops. PULMONARY: Chest is clear to auscultation, no wheezing or crackles. ABDOMEN: Soft, nontender, nondistended, normoactive bowel sounds. No palpable organomegaly. MUSCULOSKELETAL: No joint swelling or deformity. EXTREMITIES: No cyanosis, clubbing, or pedal edema. NEUROLOGICAL: Gross neurological examination did not reveal any focal deficits. SKIN: No rashes. Assessment and plan Acute on chronic diastolic CHF exacerbation Acute hypoxic respiratory failure secondary to above Chronic kidney disease, unknown baseline with possible elements of acute kidney injury Elevated troponin could be secondary to kidney disease and heart failure Diabetes mellitus Hypertension Hyperlipidemia History of osteoarthritis Hypothyroidism History of sleep apnea on CPAP/BiPAP Monitor vital signs Monitor CBC Monitor CMP Continue telemetry monitoring Strict I's and O's daily weights Continue IV Lasix 60 g twice a day Continue aspirin, Lipitor Continue hydralazine, nebivolol, Procardia Continue iron supplementation Aggressive blood sugar levels, increase NovoLog mix 7030-40 units twice a day, continue sliding scale insulin Follow-up on nephrology recommendations Follow-up on cardiology recommendations follow-up on pulmonary recommendations Labs and medication were reviewed.. Continue same treatment. Continue with symptomatic treatment. Resume home medication. Monitor labs and vitals. DVT and GI prophylaxis. Further recommendations as per clinical course of the patient Objective - Vital Signs Vital signs: Vital Signs Temp 97.6 F 09/03/22 08:07 Pulse 70 09/03/22 08:07 Resp 22 09/03/22 08:07 BP 149/62 09/03/22 08:07 Pulse Ox 91 L 09/03/22 09:29 FiO2 Intake & Output 09/02/22 09/03/22 09/03/22 18:59 06:59 18:59 Intake Total 450 240 368 Output Total 300 800 Balance 150 -560 368 Weight 77 kg 69.5 kg Intake: IV 10 Invasive Line 1 10 Intake, IV Titration 100 240 Amount Sodium Ferric Gluconat- 100 240 Sucrose 125 mg In Sodium Chloride 0.9% 100 ml @ 100 mls/hr IVPB DAILY [facility] Rx#:[id number] Oral 350 358 Output: Urine 300 800 Other: Voiding Method External Catheter External Catheter - Labs CBC & Chem 7: 09/03/22 11:11 09/03/22 11:11 Labs: Abnormal Lab Results - Last 24 Hours (Table) 09/02/22 09/02/22 09/02/22 Range/Units 11:31 16:30 20:10 POC Glucose (mg/dL) 321 H 340 H 305 H (70-110) mg/dL 09/03/22 Range/Units 06:24 POC Glucose (mg/dL) 233 H (70-110) mg/dL
--- NOTE | 2022-09-03 16:18 | P.PN ---
Subjective Progress Note Date: 09/03/22 History of present illness: This is an 87-year-old female patient here from [place] with extensive past me dical history including chronic kidney disease stage IV, chronic heart failure, hypertension, hyperlipidemia, hypothyroidism, diabetes mellitus type 2, gastroesophageal reflux disease. Patient states that she has had a total of 6 hospitalizations since April of this year while in [place]. She had 4 alone in July for kidney failure and heart failure. She denies any history of cardiac surgeries. She states she's had increased weight gain, lower extremity edema and wheezing, chills. She is not on home oxygen therapy. Patient denies having any chest pain, continues to have shortness of breath and dyspnea on exertion. EKG sinus rhythm with low voltage Chest x-ray: Acute cardiopulmonary disease disease most consistent with moderate to marked CHF. Right lower extremity venous Doppler study was negative for DVT. VQ scan negative for pulmonary embolism Renal ultrasound revealed thinning of the renal courses could indicate early renal failure. WBC 7.9, hemoglobin 9.3, platelet count 277. D-dimer 2.3. Sodium 136, potassium 3.5, BUN 81 creatinine 2.86. Glucose 121. Troponin 0.156. ProBNP 7580. Liver function tests are normal. Magnesium 2.3. Home cardiac medications: Aspirin 81 mg daily, Lipitor 20 mg daily, Bumex 2 mg twice daily, hydralazine 50 mg 3 times daily, Bystolic 5 mg twice daily, Procardia XL 60 mg twice daily, potassium chloride, levothyroxine 75 g daily. 09/02 Patient continues to have shortness of breath. Oxygen has been increased from 4 L to 6 L nasal cannula. She still thinks she has diarrhea she's been continued on IV Lasix 60 mg every 12 hours. She is a -1200 mL balance. Weights do not seem to be accurate. Echocardiogram reveals normal LV size and systolic function. Elevated RVSP of 60 mmHg. Patient denies history of smoking. She does have a CPAP at home. Repeat troponins were 0.128 and 0.112 09/03 Patient was seen by nephrology and Lasix increased to 80 mg every 8 hours. The patient looks a little more comfortable today. She continues to have difficulty breathing. Oxygen has been increased to 7 L with a pulse ox of 91%. Patient has a negative balance of only 410 ML's. Weight however appears to be up from yesterday. Blood pressure 149/62, heart rate in the 70s. Repeat blood work reveals hemoglobin 9.7, BUN 88 creatinine 3.56, sodium 132 and potassium 4.1. Physical examination: Gen: This is an 87-year-old female. She is resting in bed and appears to be in no acute distress. VS: reviewed. HEENT: Head is atraumatic, normocephalic. Pupils equal, round. Sclerae is anicteric. NECK: Supple. No JVD. LUNGS: Diminished with scattered wheezing. No intercostal retractions. HEART: Regular rate and rhythm. No murmur. ABDOMEN: Soft EXTREMITIES: No bilateral pedal edema. NEUROLOGICAL: Patient is awake, alert and oriented x3. Assessment: Acute on chronic heart failure Elevated troponin Hypertension Hyperlipidemia Hypothyroidism Diabetes mellitus 2 Gastroesophageal reflux disease Plan: Continue patient's home cardiac medications Continue IV Lasix increased to 80 mg every 8 hours by nephrology. Continue to monitor I&O, daily weights, electrolytes and renal function Obtain records from patient's hospital stay in [facility]. Further recommendations to follow based upon clinical course Nurse practitioner note has been reviewed, I agree with documented findings and plan of care. Patient was seen and examined. Objective - Vital Signs Vital signs: Vital Signs Temp 97.6 F 09/03/22 08:07 Pulse 74 09/03/22 11:47 Resp 18 09/03/22 11:47 BP 144/64 09/03/22 11:47 Pulse Ox 90 L 09/03/22 11:47 FiO2 Intake & Output 09/02/22 09/03/22 09/03/22 18:59 06:59 18:59 Intake Total 450 240 368 Output Total 300 800 Balance 150 -560 368 Weight 77 kg 69.5 kg Intake: IV 10 Invasive Line 1 10 Intake, IV Titration 100 240 Amount Sodium Ferric Gluconat- 100 240 Sucrose 125 mg In Sodium Chloride 0.9% 100 ml @ 100 mls/hr IVPB DAILY [facility] Rx#:[id number] Oral 350 358 Output: Urine 300 800 Other: Voiding Method External Catheter External Catheter External Catheter - Labs CBC & Chem 7: 09/03/22 11:11 09/03/22 11:11 Labs: Abnormal Lab Results - Last 24 Hours (Table) 09/02/22 09/02/22 09/03/22 Range/Units 16:30 20:10 06:24 RBC (3.80-5.40) m/uL Hgb (11.4-16.0) gm/dL Hct (34.0-46.0) % RDW (11.5-15.5) % Sodium (137-145) mmol/L Carbon Dioxide (22-30) mmol/L BUN (7-17) mg/dL Creatinine (0.52-1.04) mg/dL Glucose (74-99) mg/dL POC Glucose (mg/dL) 340 H 305 H 233 H (70-110) mg/dL Calcium (8.4-10.2) mg/dL 09/03/22 09/03/22 09/03/22 Range/Units 11:11 11:11 11:16 RBC 3.37 L (3.80-5.40) m/uL Hgb 9.7 L (11.4-16.0) gm/dL Hct 30.0 L (34.0-46.0) % RDW 15.9 H (11.5-15.5) % Sodium 132 L (137-145) mmol/L Carbon Dioxide 20 L (22-30) mmol/L BUN 88 H (7-17) mg/dL Creatinine 3.56 H (0.52-1.04) mg/dL Glucose 209 H (74-99) mg/dL POC Glucose (mg/dL) 226 H (70-110) mg/dL Calcium 8.1 L (8.4-10.2) mg/dL
[2022-09-03 16:27] LABS: Glucose,Whole Blood 196 mg/dL (70-110)
[2022-09-03] MEDS: INSULN ASP PRT/INSULIN ASPART 100 UNIT/ML 10 ML VIAL SQ SCH (16:41)
[2022-09-03 19:52] LABS: Glucose,Whole Blood 167 mg/dL (70-110)
[2022-09-03] MEDS: MELATONIN 5 MG TABLET PO SCH (21:06)
[2022-09-03] MEDS: ASPIRIN 81 MG PO SCH (21:06)
[2022-09-04 06:09] LABS: Glucose,Whole Blood 129 mg/dL (70-110)
--- NOTE | 2022-09-04 06:27 | P.PN ---
Subjective Progress Note Date: 09/04/22 Principal diagnosis: Heart failure The patient is an 87-year-old female patient with a past medical history significant for heart failure with preserved ejection fraction as well as chronic kidney disease and hypertension and dyslipidemia was admitted to the hospital with heart failure exacerbation. 09/04/2022 The patient was seen and evaluated this morning. She remains failure. She remains hypoxic requiring high flow oxygen at least at 7 L. She has been urinating significantly. The kidney function and the rest of the blood work from the morning still pending at this point. Currently she is on Lasix IV. Nephrology continues to be on the case. The echo showed normal LV systolic function. Assessment Heart failure exacerbation secondary to heart failure with preserved ejection fraction Chronic kidney disease Multiple comorbid conditions including hypertension and dyslipidemia Plan Continue the current medical regimen Follow-up with the blood work this morning Follow-up with the patient Objective - Vital Signs Vital signs: Vital Signs Temp 97.9 F 09/03/22 20:00 Pulse 71 09/04/22 02:00 Resp 20 09/04/22 02:00 BP 151/65 09/04/22 00:00 Pulse Ox 94 L 09/04/22 00:00 FiO2 Intake & Output 09/03/22 09/03/22 09/04/22 06:59 18:59 06:59 Intake Total 240 368 Output Total 800 350 800 Balance -560 18 -800 Weight 69.5 kg 77.1 kg Intake: IV 10 Invasive Line 1 10 Intake, IV Titration 240 Amount Sodium Ferric Gluconat- 240 Sucrose 125 mg In Sodium Chloride 0.9% 100 ml @ 100 mls/hr IVPB DAILY [facility] Rx#:[id number] Oral 358 Output: Urine 800 350 800 Other: Voiding Method External Catheter External Catheter External Catheter - Labs CBC & Chem 7: 09/03/22 11:11 09/03/22 11:11 Labs: Abnormal Lab Results - Last 24 Hours (Table) 09/03/22 09/03/22 09/03/22 Range/Units 06:24 11:11 11:11 RBC 3.37 L (3.80-5.40) m/uL Hgb 9.7 L (11.4-16.0) gm/dL Hct 30.0 L (34.0-46.0) % RDW 15.9 H (11.5-15.5) % Sodium 132 L (137-145) mmol/L Carbon Dioxide 20 L (22-30) mmol/L BUN 88 H (7-17) mg/dL Creatinine 3.56 H (0.52-1.04) mg/dL Glucose 209 H (74-99) mg/dL POC Glucose (mg/dL) 233 H (70-110) mg/dL Calcium 8.1 L (8.4-10.2) mg/dL 09/03/22 09/03/22 09/03/22 Range/Units 11:16 16:25 19:50 RBC (3.80-5.40) m/uL Hgb (11.4-16.0) gm/dL Hct (34.0-46.0) % RDW (11.5-15.5) % Sodium (137-145) mmol/L Carbon Dioxide (22-30) mmol/L BUN (7-17) mg/dL Creatinine (0.52-1.04) mg/dL Glucose (74-99) mg/dL POC Glucose (mg/dL) 226 H 196 H 167 H (70-110) mg/dL Calcium (8.4-10.2) mg/dL 09/04/22 Range/Units 06:07 RBC (3.80-5.40) m/uL Hgb (11.4-16.0) gm/dL Hct (34.0-46.0) % RDW (11.5-15.5) % Sodium (137-145) mmol/L Carbon Dioxide (22-30) mmol/L BUN (7-17) mg/dL Creatinine (0.52-1.04) mg/dL Glucose (74-99) mg/dL POC Glucose (mg/dL) 129 H (70-110) mg/dL Calcium (8.4-10.2) mg/dL
[2022-09-04] MEDS: INSULIN ASPART (NovoLOG) 100 UNIT/ML VIAL SQ SCH ×4 (07:08→22:02)
[2022-09-04] MEDS: INSULN ASP PRT/INSULIN ASPART 100 UNIT/ML 10 ML VIAL SQ SCH ×2 (07:08→17:30)
[2022-09-04] MEDS: PANTOPRAZOLE 40 MG TABLET PO SCH (07:10)
[2022-09-04] MEDS: LEVOTHYROXINE 75 MCG TAB PO SCH (07:10)
--- NOTE | 2022-09-04 08:34 | XR ---
EXAMINATION TYPE: XR chest 1V portable DATE OF EXAM: 09/04/2022 COMPARISON: 08/31/2022 HISTORY: Shortness of breath FINDINGS: There are bilateral pleural effusions with cardiomegaly and bibasilar infiltrate. There is a diffuse interstitial pattern. Atherosclerotic change aorta. Arthropathy of the shoulders. Hypertrophic and d egenerative change of the spine. IMPRESSION: 1. CHF
[2022-09-04] MEDS: FUROSEMIDE 10 MG/ML 10 ML VIAL IV SCH ×2 (08:50→15:54)
[2022-09-04] MEDS: CYANOCOBALAMIN 500 MCG TAB PO SCH (08:50)
[2022-09-04] MEDS: SODIUM FERRIC GLUCONAT-SUCROSE 125 MG in SODIUM CHLORIDE 0.9% 100 ML IVPB SCH (08:50)
[2022-09-04] MEDS: HEPARIN SODIUM,PORCINE/PF 5,000 UNIT/0.5 ML SYRINGE SQ SCH ×2 (08:50→15:53)
[2022-09-04] MEDS: hydrALAZINE HCL 50 MG TAB PO SCH ×3 (08:50→22:05)
[2022-09-04] MEDS: MULTIVITAMINS, THERA 1 EACH TAB PO SCH (08:51)
[2022-09-04] MEDS: ATORVASTATIN 20 MG TAB PO SCH (08:51)
[2022-09-04] MEDS: allopurinoL 100 MG TAB PO SCH ×2 (08:51→22:05)
[2022-09-04] MEDS: busPIRone HCl 10 MG TAB PO SCH ×2 (08:51→22:04)
[2022-09-04] MEDS: DOCUSATE 100 MG CAP PO SCH ×2 (08:51→22:04)
[2022-09-04] MEDS: NEBIVOLOL 5 MG TAB PO SCH ×2 (08:51→22:05)
[2022-09-04] MEDS: POTASSIUM CHLORIDE ER 20 MEQ TAB.ER PO SCH (08:51)
[2022-09-04 10:09] LABS: African American GFR (CKD) 14 (>60 ml/min/1.73 sqM); Anion Gap 11 mmol/L; Blood Urea Nitrogen 89 mg/dL (7-17); Calcium 8.3 mg/dL (8.4-10.2); Carbon Dioxide 20 mmol/L (22-30); Chloride 100 mmol/L (98-107); Glucose 165 mg/dL (74-99); Non-African American GFR(CKD) 12 (>60 ml/min/1.73 sqM); Potassium 4.1 mmol/L (3.5-5.1); Sodium 131 mmol/L (137-145)
[2022-09-04 10:17] LABS: Basophils % (A) 0 %; Eosinophils # (A) 0.2 k/uL (0-0.7); Eosinophils % (A) 2 %; HCT 31.2 % (34.0-46.0); HGB 9.9 gm/dL (11.4-16.0); Hypochromasia Slight; Lymphocytes # (A) 1.3 k/uL (1.0-4.8); Lymphocytes % (A) 17 %; MCH 28.7 pg (25.0-35.0); MCHC 31.6 g/dL (31.0-37.0); Mean Platelet Volume 9.2; Monocytes # (A) 0.5 k/uL (0-1.0); Monocytes % (A) 7 %; Neutrophils # (A) 5.7 k/uL (1.3-7.7); Neutrophils % (A) 72 %; Platelet Count 314 k/uL (150-450); RBC 3.43 m/uL (3.80-5.40); RDW 15.9 % (11.5-15.5); WBC 7.8 k/uL (3.8-10.6)
--- NOTE | 2022-09-04 11:31 | P.PN ---
Subjective Patient is seen for follow-up for chronic kidney disease and possible acute kidney injury. Patient has underlying CK D stage IV and was following with nephrology in [place]. She has moved to [place] and will be establishing nephrology clinic care here. Patient is admitted with shortness of breath and volume overload. She is currently being diuresed. Lasix increased to 80 mg IV every 8 hours yesterday. Patient states she is feeling better with improvement in shortness of breath although urine output is not significantly changed and remains at about 1.1 L for 24 hours. Serum creatinine slightly improved to 3.3 from 3.5 yesterday. Blood pressure is not low. Objective - Vital Signs Vital signs: Vital Signs Temp 97.8 F 09/04/22 08:00 Pulse 90 09/04/22 08:00 Resp 20 09/04/22 08:00 BP 154/61 09/04/22 08:00 Pulse Ox 92 L 09/04/22 09:27 FiO2 Intake & Output 09/03/22 09/04/22 09/04/22 18:59 06:59 18:59 Intake Total 368 608 Output Total 350 800 300 Balance 18 -800 308 Weight 77.1 kg Intake: IV 10 10 Invasive Line 1 10 10 Oral 358 598 Output: Urine 350 800 300 Other: Voiding Method External Catheter External Catheter External Catheter - Exam Patient is awake, comfortable, no acute distress Examination of the heart S1 and S2 Examination of the lungs bilateral breath sounds are heard, decreased breath sounds at the bases Abdomen is soft nontender Examination lower extremities shows edema 1+ bilaterally SET UP MOLD TECHNICIAN exam grossly intact - Labs CBC & Chem 7: 09/04/22 08:08 09/04/22 08:08 Labs: Abnormal Lab Results - Last 24 Hours (Table) 09/03/22 09/03/22 09/03/22 Range/Units 11:11 11:11 16:25 RBC 3.37 L (3.80-5.40) m/uL Hgb 9.7 L (11.4-16.0) gm/dL Hct 30.0 L (34.0-46.0) % RDW 15.9 H (11.5-15.5) % Sodium 132 L (137-145) mmol/L Carbon Dioxide 20 L (22-30) mmol/L BUN 88 H (7-17) mg/dL Creatinine 3.56 H (0.52-1.04) mg/dL Glucose 209 H (74-99) mg/dL POC Glucose (mg/dL) 196 H (70-110) mg/dL Calcium 8.1 L (8.4-10.2) mg/dL 09/03/22 09/04/22 09/04/22 Range/Units 19:50 06:07 08:08 RBC 3.43 L (3.80-5.40) m/uL Hgb 9.9 L (11.4-16.0) gm/dL Hct 31.2 L (34.0-46.0) % RDW 15.9 H (11.5-15.5) % Sodium (137-145) mmol/L Carbon Dioxide (22-30) mmol/L BUN (7-17) mg/dL Creatinine (0.52-1.04) mg/dL Glucose (74-99) mg/dL POC Glucose (mg/dL) 167 H 129 H (70-110) mg/dL Calcium (8.4-10.2) mg/dL 09/04/22 Range/Units 08:08 RBC (3.80-5.40) m/uL Hgb (11.4-16.0) gm/dL Hct (34.0-46.0) % RDW (11.5-15.5) % Sodium 131 L (137-145) mmol/L Carbon Dioxide 20 L (22-30) mmol/L BUN 89 H (7-17) mg/dL Creatinine 3.33 H (0.52-1.04) mg/dL Glucose 165 H (74-99) mg/dL POC Glucose (mg/dL) (70-110) mg/dL Calcium 8.3 L (8.4-10.2) mg/dL Assessment and Plan Assessment: 1. Chronic kidney disease NKF stage IV secondary to nephrosclerosis versus diabetic kidney disease. Baseline creatinine not available. Patient was following with a senior electrical designer in [place] but has moved to [place] now. UA is benign with 1+ protein. Ultrasound is unremarkable. 2. Volume overload currently being diuresed 3. Acute CHF exacerbation, EF not known 4. Anemia of chronic disease rule out iron deficiency 5. Hypertension with CK D stage IV with volume overload 6. Iron deficiency 7. CK D mineral bone disorder with PTH and 25-hydroxy vitamin D level at goal. Plan: Continue current dose of IV Lasix Repeat labs in a.m. Check bladder scan and rule out urine retention. Encourage increased oral intake. Maintain salt and fluid restriction.
--- NOTE | 2022-09-04 11:48 | P.PN ---
Subjective Progress Note Date: 09/04/22 Principal diagnosis: Shortness of breath. Pulmonary consult dated 09/02/2022. 87-year-old female who recently moved back to [place] from [place]. She presented to the emergency department on August 31, complaining of shortness of breath. The patient is currently seen today in room 366. Her 3 daughters are present. She apparently been having shortness breath for a number of days, and decided to come into the hospital to be evaluated. She does not have a family doctor in this area, and is hoping to establish herself with Dr. Chanell Turk. She does have a remote history of tobacco use. She smoked only socially. The patient denies a history of chronic lung disease. She appears to have diastolic CHF. Her chest x-ray was consistent with fluid overload, and her N-terminal proBNP was elevated. The patient's currently on 6 L of oxygen. She has been seen by cardiology. In addition to diastolic CHF, she has a history of hyperlipidemia, diabetes, hypothyroidism, insomnia, gastroesophageal reflux disease, and gout. Laboratory data from September 01 showed white count of 7.9, hemoglobin 9.3, hematocrit 29.1, and a normal platelet count. Sodium 136, potassium 3.5, chlorides 102, CO2 22, BUN 81, and creatinine 2.86. The patient's troponins were 0.156 and 0.112. N-terminal proBNP was 7580. Chest x- ray was consistent with fluid overload. Dopplers of the lower semis were negative. Pulmonary perfusion lung scan, was negative. Progress note dated 09/03/2022. The patient is seen today in room 366. She was seen in consultation yesterday. Please see the note above. She remains on saline at 10 mL an hour, and also oxygen is 7 L nasal cannula. She was admitted with a diagnosis of CHF. She has diastolic CHF. Currently, she seems to be doing about the same, no better, but no worse. No new labs today other than a blood glucose of 226. A repeat chest x-ray was ordered for tomorrow. Progress note dated 09/04/2022. The patient is seen today in room 366. Currently, she is on 7 L of oxygen. She's not receiving any IV fluids. Chest x-rays consistent with fluid overload. The patient does feel fatigued, and a short of breath on exertion. She was admitted with a diagnosis of diastolic CHF. White count 7.8, hemoglobin 9.9, hematocrit 31.2, and platelet count is normal. Sodium 131, potassium 4.1, chlorides 100, CO2 20, BUN 89, and creatinine 3.33. Objective - Vital Signs Vital signs: Vital Signs Temp 97.8 F 09/04/22 08:00 Pulse 90 09/04/22 08:00 Resp 20 09/04/22 08:00 BP 154/61 09/04/22 08:00 Pulse Ox 92 L 09/04/22 09:27 FiO2 Intake & Output 09/03/22 09/04/22 09/04/22 18:59 06:59 18:59 Intake Total 368 608 Output Total 350 800 300 Balance 18 -800 308 Weight 77.1 kg Intake: IV 10 10 Invasive Line 1 10 10 Oral 358 598 Output: Urine 350 800 300 Other: Voiding Method External Catheter External Catheter External Catheter - Exam No acute distress, oriented 3. Currently the patient's on 7 L. Saturation is 92%. HEENT examination is grossly unremarkable. Neck supple. Full range of motion. No adenopathy thyromegaly or neck vein distention. Cardiovascular examination reveals regular rhythm rate. S1-S2 normal. No S3 or S4. Heart sounds are distant. Heart rate 90 bpm. A soft systolic murmur is noted. Lungs reveal scattered rhonchi and crackles. No wheezes. Breath sounds equal bilaterally. Abdomen soft bowel sounds are heard. No masses or tenderness. Extremities are intact. No cyanosis clubbing or edema. Skin is without rash or lesion. Neurologic examination is brief but nonfocal. - Labs CBC & Chem 7: 09/04/22 08:08 09/04/22 08:08 Labs: Abnormal Lab Results - Last 24 Hours (Table) 09/03/22 09/03/22 09/03/22 Range/Units 11:11 11:11 16:25 RBC 3.37 L (3.80-5.40) m/uL Hgb 9.7 L (11.4-16.0) gm/dL Hct 30.0 L (34.0-46.0) % RDW 15.9 H (11.5-15.5) % Sodium 132 L (137-145) mmol/L Carbon Dioxide 20 L (22-30) mmol/L BUN 88 H (7-17) mg/dL Creatinine 3.56 H (0.52-1.04) mg/dL Glucose 209 H (74-99) mg/dL POC Glucose (mg/dL) 196 H (70-110) mg/dL Calcium 8.1 L (8.4-10.2) mg/dL 09/03/22 09/04/22 09/04/22 Range/Units 19:50 06:07 08:08 RBC 3.43 L (3.80-5.40) m/uL Hgb 9.9 L (11.4-16.0) gm/dL Hct 31.2 L (34.0-46.0) % RDW 15.9 H (11.5-15.5) % Sodium (137-145) mmol/L Carbon Dioxide (22-30) mmol/L BUN (7-17) mg/dL Creatinine (0.52-1.04) mg/dL Glucose (74-99) mg/dL POC Glucose (mg/dL) 167 H 129 H (70-110) mg/dL Calcium (8.4-10.2) mg/dL 09/04/22 Range/Units 08:08 RBC (3.80-5.40) m/uL Hgb (11.4-16.0) gm/dL Hct (34.0-46.0) % RDW (11.5-15.5) % Sodium 131 L (137-145) mmol/L Carbon Dioxide 20 L (22-30) mmol/L BUN 89 H (7-17) mg/dL Creatinine 3.33 H (0.52-1.04) mg/dL Glucose 165 H (74-99) mg/dL POC Glucose (mg/dL) (70-110) mg/dL Calcium 8.3 L (8.4-10.2) mg/dL Assessment and Plan Assessment: Acute hypoxemic respiratory failure, secondary to acute on chronic diastolic CHF. History of diabetes mellitus. Chronic kidney disease. History of hyperlipidemia. History of hypothyroidism. History of hypertension. History of gastroesophageal reflux disease. History of gout. Remote history of tobacco use. Plan: Plan dated 09/02/2022. The patient appears not have any significant pulmonary disease. I believe most of her shortness of breath and hypoxemia relates to diastolic CHF. She is currently on 6 L of oxygen, with saturations between 90% and 92%. N-terminal proBNP was elevated. The patient has been seen by cardiology. We will continue to follow make recommendations along the way. Prognosis is guarded. The patient currently does not have a family doctor, but is hoping to get in with Dr. Chanell Turk. Prognosis is guarded. Plan dated 09/03/2022. The patient remains on high flow oxygen at 7 L nasal cannula. Chest x-ray was ordered for tomorrow. The patient feels about the same today as she did yesterday. She doesn't feel any better or any worse. Labs, x-rays, and medications are all reviewed. The patient's overall prognosis remains guarded. We will continue to follow the patient and make recommendations along the way. Plan dated 09/04/2022. The patient remains on oxygen at 7 L. Saturations are 92%. The patient feels slightly better today than yesterday. Labs, x-rays, and medications are reviewed. She continues on IV Lasix. Chest x-rays consistent with CHF. We will continue to follow the patient and make recommendations along the way. Prognosis is certainly guarded. Time with Patient: Less than 30
[2022-09-04 11:50] LABS: Glucose,Whole Blood 233 mg/dL (70-110)
[2022-09-04] MEDS: LACTULOSE 20 GM/30 ML CUP PO SCH ×3 (15:53→22:03)
[2022-09-04 16:44] LABS: Glucose,Whole Blood 269 mg/dL (70-110)
[2022-09-04 19:53] LABS: Glucose,Whole Blood 264 mg/dL (70-110)
[2022-09-04] MEDS: ASPIRIN 81 MG PO SCH (22:03)
[2022-09-04] MEDS: MELATONIN 5 MG TABLET PO SCH (22:04)
[2022-09-05] MEDS: HEPARIN SODIUM,PORCINE/PF 5,000 UNIT/0.5 ML SYRINGE SQ SCH ×4 (00:43→23:50)
[2022-09-05] MEDS: FUROSEMIDE 10 MG/ML 10 ML VIAL IV SCH ×2 (00:43→09:39)
[2022-09-05 06:13] LABS: Glucose,Whole Blood 120 mg/dL (70-110)
[2022-09-05] MEDS: INSULIN ASPART (NovoLOG) 100 UNIT/ML VIAL SQ SCH ×4 (06:14→23:47)
--- NOTE | 2022-09-05 06:23 | P.PN ---
Subjective Progress Note Date: 09/05/22 Principal diagnosis: Heart failure The patient is an 87-year-old female patient with a past medical history significant for heart failure with preserved ejection fraction as well as chronic kidney disease and hypertension and dyslipidemia was admitted to the hospital with heart failure exacerbation. 09/04/2022 The patient was seen and evaluated this morning. She remains failure. She remains hypoxic requiring high flow oxygen at least at 7 L. She has been urinating significantly. The kidney function and the rest of the blood work from the morning still pending at this point. Currently she is on Lasix IV. Nephrology continues to be on the case. The echo showed normal LV systolic function. September [id number] She was seen and evaluated this morning. She continues to be hypoxic on 7 L of oxygen to maintain saturation above 90%. Hemodynamically she is stable patient has been diuresing well overnight. She still short of breath even getting a normal conversation and she is asking about hospice. I am going to address that with the internal medicine team. Meanwhile continue the current dose of Lasix IV. Nephrology service as on the case. Assessment Heart failure exacerbation secondary to heart failure with preserved ejection fraction Chronic kidney disease Multiple comorbid conditions including hypertension and dyslipidemia Plan Continue the current medical regimen Follow-up with the patient Objective - Vital Signs Vital signs: Vital Signs Temp 98.2 F 09/05/22 04:00 Pulse 70 09/05/22 04:00 Resp 18 09/05/22 04:00 BP 140/64 09/05/22 04:00 Pulse Ox 94 L 09/05/22 06:21 FiO2 Intake & Output 09/04/22 09/04/22 09/05/22 06:59 18:59 06:59 Intake Total 1088 Output Total 200 747 2172 Balance -800 438 -1000 Weight 77.1 kg Intake: IV 10 Invasive Line 1 10 Oral 1078 Output: Urine 798 117 0441 Other: Voiding Method External Catheter External Catheter External Catheter # Bowel Movements 1 - Labs CBC & Chem 7: 09/04/22 08:08 09/04/22 08:08 Labs: Abnormal Lab Results - Last 24 Hours (Table) 09/04/22 09/04/22 09/04/22 Range/Units 08:08 08:08 11:49 RBC 3.43 L (3.80-5.40) m/uL Hgb 9.9 L (11.4-16.0) gm/dL Hct 31.2 L (34.0-46.0) % RDW 15.9 H (11.5-15.5) % Sodium 131 L (137-145) mmol/L Carbon Dioxide 20 L (22-30) mmol/L BUN 89 H (7-17) mg/dL Creatinine 3.33 H (0.52-1.04) mg/dL Glucose 165 H (74-99) mg/dL POC Glucose (mg/dL) 233 H (70-110) mg/dL Calcium 8.3 L (8.4-10.2) mg/dL 09/04/22 09/04/22 09/05/22 Range/Units 16:42 19:52 06:11 RBC (3.80-5.40) m/uL Hgb (11.4-16.0) gm/dL Hct (34.0-46.0) % RDW (11.5-15.5) % Sodium (137-145) mmol/L Carbon Dioxide (22-30) mmol/L BUN (7-17) mg/dL Creatinine (0.52-1.04) mg/dL Glucose (74-99) mg/dL POC Glucose (mg/dL) 269 H 264 H 120 H (70-110) mg/dL Calcium (8.4-10.2) mg/dL
[2022-09-05] MEDS: PANTOPRAZOLE 40 MG TABLET PO SCH (06:33)
[2022-09-05] MEDS: LEVOTHYROXINE 75 MCG TAB PO SCH (06:33)
[2022-09-05] MEDS: INSULN ASP PRT/INSULIN ASPART 100 UNIT/ML 10 ML VIAL SQ SCH ×2 (08:09→17:14)
[2022-09-05] MEDS: DOCUSATE 100 MG CAP PO SCH ×2 (09:38→23:47)
[2022-09-05] MEDS: LACTULOSE 20 GM/30 ML CUP PO SCH ×3 (09:38→23:50)
[2022-09-05] MEDS: NEBIVOLOL 5 MG TAB PO SCH ×2 (09:39→23:48)
[2022-09-05] MEDS: ATORVASTATIN 20 MG TAB PO SCH (09:39)
[2022-09-05] MEDS: hydrALAZINE HCL 50 MG TAB PO SCH ×3 (09:39→23:49)
[2022-09-05] MEDS: CYANOCOBALAMIN 500 MCG TAB PO SCH (09:39)
[2022-09-05] MEDS: POTASSIUM CHLORIDE ER 20 MEQ TAB.ER PO SCH (09:39)
[2022-09-05] MEDS: MULTIVITAMINS, THERA 1 EACH TAB PO SCH (09:39)
[2022-09-05] MEDS: busPIRone HCl 10 MG TAB PO SCH ×2 (09:39→23:46)
[2022-09-05] MEDS: allopurinoL 100 MG TAB PO SCH ×2 (09:39→23:46)
[2022-09-05] MEDS: SODIUM FERRIC GLUCONAT-SUCROSE 125 MG in SODIUM CHLORIDE 0.9% 100 ML IVPB SCH (09:40)
--- NOTE | 2022-09-05 10:54 | P.PN ---
Subjective Patient is seen for follow-up for chronic kidney disease and possible acute kidney injury. Patient has underlying CK D stage IV and was following with nephrology in [place]. She has moved to [place] and will be establishing nephrology clinic care here. Patient is admitted with shortness of breath and volume overload. She is currently being diuresed. Lasix increased to 80 mg IV every 8 hours with slightly increased total urine output for 24 hours. Yesterday patient well slightly better however she developed worsening shortness of breath last night and this morning patient states she feels miserable with significant shortness of breath. I have discussed renal replacement therapy with the patient and her daughter. They are agreeable to proceed with dialysis. Hospice care options were also discussed. Patient states that she had been quite independent and feels depressed and frustrated at not being able to ambulate much due to shortness of breath. Appetite is also low. Objective - Vital Signs Vital signs: Vital Signs Temp 98.2 F 09/05/22 04:00 Pulse 70 09/05/22 04:00 Resp 18 09/05/22 04:00 BP 140/64 09/05/22 04:00 Pulse Ox 94 L 09/05/22 06:21 FiO2 Intake & Output 09/04/22 09/05/22 09/05/22 18:59 06:59 18:59 Intake Total 1088 118 Output Total 650 1000 Balance 438 -1000 118 Weight 72 kg Intake: IV 10 Invasive Line 1 10 Oral 1078 118 Output: Urine 650 1000 Other: Voiding Method External Catheter External Catheter # Bowel Movements 1 - Exam Patient is awake, comfortable, no acute distress Examination of the heart S1 and S2 Examination of the lungs bilateral breath sounds are heard, decreased breath sounds at the bases Abdomen is soft nontender Examination lower extremities shows edema 1+ bilaterally AVIATION MANAGER exam grossly intact - Labs CBC & Chem 7: 09/04/22 08:08 09/04/22 08:08 Labs: Abnormal Lab Results - Last 24 Hours (Table) 09/04/22 09/04/22 09/04/22 Range/Units 11:49 16:42 19:52 POC Glucose (mg/dL) 233 H 269 H 264 H (70-110) mg/dL 09/05/22 Range/Units 06:11 POC Glucose (mg/dL) 120 H (70-110) mg/dL Assessment and Plan Assessment: 1. Chronic kidney disease NKF stage IV secondary to nephrosclerosis versus diabetic kidney disease. Baseline creatinine not available. Patient was following with a fabrication technician in [place] but has moved to [place] now. UA is benign with 1+ protein. Ultrasound is unremarkable. Due to persistent hypoxia and shortness of breath we will proceed with renal replacement therapy. Patient also reports poor appetite which may be related to some degree of uremia. 2. Volume overload currently being diuresed. We'll proceed with renal replacement therapy. 3. Acute CHF exacerbation, EF 55-60% 4. Anemia of chronic disease rule out iron deficiency 5. Hypertension with CK D stage IV with volume overload 6. Iron deficiency 7. CK D mineral bone disorder with PTH and 25-hydroxy vitamin D level at goal. Plan: Proceed with vascular surgery consult for dialysis catheter placement and we will plan for first treatment today. Repeat hemodialysis in a.m. Changed to Lasix drip. Encourage increased oral intake. Maintain salt and fluid restriction.
[2022-09-05 11:27] LABS: Glucose,Whole Blood 225 mg/dL (70-110)
[2022-09-05] MEDS: FUROSEMIDE 100 MG in SODIUM CHLORIDE 0.9% 90 ML IV SCH ×2 (12:17→23:47)
--- NOTE | 2022-09-05 13:45 | P.GSCN ---
History of Present Illness History of present illness: 87-year-old white female and has history of shortness of breath the acute kidney injury with has been on nasal oxygen is and Quirino I was consulted for placement of a dialysis catheter. Eschen is very short of breath patient had lays flat considering placing filter catheter went placed a right IJ catheter. Patient also has history of congestive heart failure Neck examination neck is supple no bruit appreciated Chest patient has a crackles bilateral patient has oxygen Abdomen soft nontender Femorals 1+ bilateral plan is placement of dialysis catheter risk and complication discussed Past Medical History Past Medical History: Heart Failure Additional Past Medical History / Comment(s): CKD Stage 4 History of Any Multi-Drug Resistant Organisms: None Reported Past Surgical History: Appendectomy, Hysterectomy, Joint Replacement Additional Past Surgical History / Comment(s): L knee total hip. R side thyroid removal for benign growth. Past Anesthesia/Blood Transfusion Reactions: No Reported Reaction Past Psychological History: Anxiety Smoking Status: Former smoker Past Alcohol Use History: Rare - Past Family History Mother Additional Family Medical History / Comment(s): at 38 of a NC. Father Additional Family Medical History / Comment(s): at 58 of a CVA. Medications and Allergies Home Medications Medication Instructions Recorded Confirmed Type Aspirin EC [Ecotrin Low Dose] 81 mg PO HS 08/31/22 08/31/22 History Atorvastatin [Lipitor] 20 mg PO DAILY 08/31/22 08/31/22 History Bumetanide [BUMEX] 2 mg PO BID 08/31/22 08/31/22 History Cyanocobalamin (Vitamin B-12) 1,000 mcg PO DAILY 08/31/22 08/31/22 History [Vitamin B-12] Insulin NPH Hum/Reg Insulin Hm 10 unit SQ AC-BRKFST 08/31/22 08/31/22 History [Novolin 70-30 100 Unit/ml Vial] Insulin NPH Hum/Reg Insulin Hm 18 unit SQ AC-SUPPER 08/31/22 08/31/22 History [Novolin 70-30 100 Unit/ml Vial] Levothyroxine Sodium [Synthroid] 75 mcg PO DAILY 08/31/22 08/31/22 History Melatonin [Melatonin ER] 10 mg PO HS 08/31/22 08/31/22 History Multivitamins, Thera [Multivitamin 1 tab PO DAILY 08/31/22 08/31/22 History (formulary)] NIFEdipine XL [Procardia XL] 60 mg PO BID 08/31/22 08/31/22 History Nebivolol [Bystolic] 5 mg PO BID 08/31/22 08/31/22 History Omeprazole [PriLOSEC] 20 mg PO BID 08/31/22 08/31/22 History Potassium Chloride ER [K-Dur 20] 20 meq PO DAILY 08/31/22 08/31/22 History allopurinoL [Zyloprim] 100 mg PO BID 08/31/22 08/31/22 History busPIRone HCl [Buspar] 10 mg PO BID 08/31/22 08/31/22 History hydrALAZINE HCL [Apresoline] 50 mg PO TID 08/31/22 08/31/22 History predniSONE See Taper PO DAILY 08/31/22 08/31/22 History Allergies Allergy/AdvReac Type Severity Reaction Status Date / Time adhesive tape Allergy Unknown Verified 08/31/22 16:25 meperidine [From Demerol] Allergy Unknown Verified 08/31/22 16:24 methylprednisolone Allergy Unknown Verified 08/31/22 16:25 [From Medrol] Surgical - Exam Vital Signs Temp Pulse Resp BP Pulse Ox 98.4 F 91 26 H 157/58 91 L 08/31/22 14:22 08/31/22 14:22 08/31/22 14:22 08/31/22 14:22 08/31/22 14:22 Results - Labs 09/04/22 08:08 09/04/22 08:08 Abnormal Lab Results - Last 24 Hours (Table) 09/04/22 09/04/22 09/05/22 Range/Units 16:42 19:52 06:11 POC Glucose (mg/dL) 269 H 264 H 120 H (70-110) mg/dL 09/05/22 Range/Units 11:24 POC Glucose (mg/dL) 225 H (70-110) mg/dL
--- NOTE | 2022-09-05 13:47 | P.PN ---
Subjective Progress Note Date: 09/05/22 Principal diagnosis: Shortness of breath. Pulmonary consult dated 09/02/2022. 87-year-old female who recently moved back to [place] from [place]. She presented to the emergency department on August 31, complaining of shortness of breath. The patient is currently seen today in room 366. Her 3 daughters are present. She apparently been having shortness breath for a number of days, and decided to come into the hospital to be evaluated. She does not have a family doctor in this area, and is hoping to establish herself with Dr. Chanell Turk. She does have a remote history of tobacco use. She smoked only socially. The patient denies a history of chronic lung disease. She appears to have diastolic CHF. Her chest x-ray was consistent with fluid overload, and her N-terminal proBNP was elevated. The patient's currently on 6 L of oxygen. She has been seen by cardiology. In addition to diastolic CHF, she has a history of hyperlipidemia, diabetes, hypothyroidism, insomnia, gastroesophageal reflux disease, and gout. Laboratory data from September 01 showed white count of 7.9, hemoglobin 9.3, hematocrit 29.1, and a normal platelet count. Sodium 136, potassium 3.5, chlorides 102, CO2 22, BUN 81, and creatinine 2.86. The patient's troponins were 0.156 and 0.112. N-terminal proBNP was 7580. Chest x- ray was consistent with fluid overload. Dopplers of the lower semis were negative. Pulmonary perfusion lung scan, was negative. Progress note dated 09/03/2022. The patient is seen today in room 366. She was seen in consultation yesterday. Please see the note above. She remains on saline at 10 mL an hour, and also oxygen is 7 L nasal cannula. She was admitted with a diagnosis of CHF. She has diastolic CHF. Currently, she seems to be doing about the same, no better, but no worse. No new labs today other than a blood glucose of 226. A repeat chest x-ray was ordered for tomorrow. Progress note dated 09/04/2022. The patient is seen today in room 366. Currently, she is on 7 L of oxygen. She's not receiving any IV fluids. Chest x-rays consistent with fluid overload. The patient does feel fatigued, and a short of breath on exertion. She was admitted with a diagnosis of diastolic CHF. White count 7.8, hemoglobin 9.9, hematocrit 31.2, and platelet count is normal. Sodium 131, potassium 4.1, chlorides 100, CO2 20, BUN 89, and creatinine 3.33. Progress note dated 09/05/2022. 87-year-old female seen today in room 366. She was admitted with hypoxemic respiratory failure, secondary to fluid overload. Unfortunately, her renal function has worsened, and the patient will likely need hemodialysis. I suspect a hemodialysis catheter will be placed today. Her chest x-ray shows fluid overload. She does have diastolic CHF. She's currently on 7 L of oxygen. That has not really improved at all. No new labs today other glucose of 225. Her creatinine is up to 3.33. Her BUN from yesterday was 89. Objective - Vital Signs Vital signs: Vital Signs Temp 97 F L 09/05/22 08:00 Pulse 68 09/05/22 08:00 Resp 22 09/05/22 08:00 BP 135/61 09/05/22 08:00 Pulse Ox 92 L 09/05/22 08:00 FiO2 Intake & Output 09/04/22 09/05/22 09/05/22 18:59 06:59 18:59 Intake Total 1088 118 Output Total 650 1000 Balance 438 -1000 118 Weight 72 kg Intake: IV 10 Invasive Line 1 10 Oral 1078 118 Output: Urine 650 1000 Other: Voiding Method External Catheter External Catheter External Catheter # Bowel Movements 1 - Exam No acute distress, oriented 3. Currently the patient's on 7 L. Saturation is 91%. HEENT examination is grossly unremarkable. Neck supple. Full range of motion. No adenopathy thyromegaly or neck vein distention. Cardiovascular examination reveals regular rhythm rate. S1-S2 normal. No S3 or S4. Heart sounds are distant. Heart rate 68 bpm. A soft systolic murmur is noted. Lungs reveal scattered rhonchi and crackles. No wheezes. Breath sounds equal bilaterally. Abdomen soft bowel sounds are heard. No masses or tenderness. Extremities are intact. No cyanosis clubbing or edema. Skin is without rash or lesion. Neurologic examination is brief but nonfocal. - Labs CBC & Chem 7: 09/04/22 08:08 09/04/22 08:08 Labs: Abnormal Lab Results - Last 24 Hours (Table) 09/04/22 09/04/22 09/05/22 Range/Units 16:42 19:52 06:11 POC Glucose (mg/dL) 269 H 264 H 120 H (70-110) mg/dL 09/05/22 Range/Units 11:24 POC Glucose (mg/dL) 225 H (70-110) mg/dL Assessment and Plan Assessment: Acute hypoxemic respiratory failure, secondary to acute on chronic diastolic CHF. History of diabetes mellitus. Acute on chronic kidney disease, with possible initiation of hemodialysis. History of hyperlipidemia. History of hypothyroidism. History of hypertension. History of gastroesophageal reflux disease. History of gout. Remote history of tobacco use. Plan: Plan dated 09/02/2022. The patient appears not have any significant pulmonary disease. I believe most of her shortness of breath and hypoxemia relates to diastolic CHF. She is currently on 6 L of oxygen, with saturations between 90% and 92%. N-terminal proBNP was elevated. The patient has been seen by cardiology. We will continue to follow make recommendations along the way. Prognosis is guarded. The patient currently does not have a family doctor, but is hoping to get in with Dr. Chanell Turk. Prognosis is guarded. Plan dated 09/03/2022. The patient remains on high flow oxygen at 7 L nasal cannula. Chest x-ray was ordered for tomorrow. The patient feels about the same today as she did yesterday. She doesn't feel any better or any worse. Labs, x-rays, and medications are all reviewed. The patient's overall prognosis remains guarded. We will continue to follow the patient and make recommendations along the way. Plan dated 09/04/2022. The patient remains on oxygen at 7 L. Saturations are 92%. The patient feels slightly better today than yesterday. Labs, x-rays, and medications are reviewed. She continues on IV Lasix. Chest x-rays consistent with CHF. We will continue to follow the patient and make recommendations along the way. Prognosis is certainly guarded. Plan dated 09/05/2022. The patient's oxygen requirements have not improved, and the patient's chest x- ray still shows a pattern of CHF. The patient was seen by nephrology, and the plan is to place a hemodialysis catheter, and start the patient on hemodialysis either today or tomorrow. Additional recommendations and suggestions are forthcoming. Her labs, x-rays, and medications are reviewed. Respiratory status has not improved. She short of breath with any activity. He to follow the patient and make recommendations along the way. Time with Patient: Less than 30
[2022-09-05] MEDS ORDERED: LIDOCAINE 1% INJ 10MG/ML (20 ML MDV) ONE (13:48)
[2022-09-05] MEDS ORDERED: HEPARIN SODIUM 1,000 UN/ML (10ML VL) ONE (13:53)
[2022-09-05] MEDS ORDERED: LIDOCAINE 1% INJ 10MG/ML (20 ML MDV) SQ ONE (13:57)
--- NOTE | 2022-09-05 14:37 | IR ---
EXAMINATION TYPE: IR cvc insert non tunneled DATE OF EXAM: 09/05/2022 COMPARISON: NONE HISTORY: Fluoroscopy time. Fluoroscopy was provided to the referring clinician.
--- NOTE | 2022-09-05 14:57 | OP ---
OPERATIVE REPORT DATE OF SERVICE : PREOPERATIVE DIAGNOSIS: Acute on chronic renal failure. POSTOPERATIVE DIAGNOSIS: Acute on chronic renal failure. PROCEDURE PERFORMED: Ultrasound-guided 24 cm dialysis catheter, right femoral approach. DESCRIPTION OF PROCEDURE: The patient was brought to the laborer carpentry dock. The patient is very short of breath, who cannot lie flat. Right groin was prepped and drapes applied in a sterile manner. 1% lidocaine infiltrated in the right groin area. Micropuncture was introduced into the right femoral vein. Micropuncture guidewire was passed. A 4-Belarusian dilator was advanced on top of the guidewire. Then, we passed a regular guidewire without any resistance. Dilator was advanced. Then, we placed 23 cm dialysis catheter triple- lumen on the top of the guidewire. The guidewire was removed, flushed with heparin saline and hep-locked, secured with 3-0 nylon. The patient tolerated the procedure well. MMODL / IJN: [id number] /
[2022-09-05 16:21] LABS: Glucose,Whole Blood 144 mg/dL (70-110)
[2022-09-05 20:05] LABS: Glucose,Whole Blood 119 mg/dL (70-110)
[2022-09-05] MEDS: ASPIRIN 81 MG PO SCH (23:46)
[2022-09-05] MEDS: MELATONIN 5 MG TABLET PO SCH (23:48)
[2022-09-06 03:11] LABS: Hepatitis B Surface AB- Quant 3.5 mIU/mL
[2022-09-06 04:39] LABS: Hepatitis B Surface Antigen Conf_React
[2022-09-06 06:01] LABS: Glucose,Whole Blood 129 mg/dL (70-110)
--- NOTE | 2022-09-06 06:43 | P.PN ---
Subjective Progress Note Date: 09/06/22 Principal diagnosis: Heart failure The patient is an 87-year-old female patient with a past medical history significant for heart failure with preserved ejection fraction as well as chronic kidney disease and hypertension and dyslipidemia was admitted to the hospital with heart failure exacerbation. 09/04/2022 The patient was seen and evaluated this morning. She remains failure. She remains hypoxic requiring high flow oxygen at least at 7 L. She has been urinating significantly. The kidney function and the rest of the blood work from the morning still pending at this point. Currently she is on Lasix IV. Nephrology continues to be on the case. The echo showed normal LV systolic function. September [id number] She was seen and evaluated this morning. She continues to be hypoxic on 7 L of oxygen to maintain saturation above 90%. Hemodynamically she is stable patient has been diuresing well overnight. She still short of breath even getting a normal conversation and she is asking about hospice. I am going to address that with the internal medicine team. Meanwhile continue the current dose of Lasix IV. Nephrology service as on the case. September 062022 The patient was seen this morning. She underwent dialysis yesterday. Overall she is feeling better today. She continues to be on Lasix. She continues to be hypoxic requiring oxygen at 8 L. She is going to undergo another dialysis later on today. No pain in the chest. She continues to have shortness of breath which has somewhat improved after dialysis and no lower extremity edema noted. Assessment Heart failure exacerbation secondary to heart failure with preserved ejection fraction Chronic kidney disease status post dialysis Multiple comorbid conditions including hypertension and dyslipidemia Plan Continue the current medical regimen Follow-up with the patient Objective - Vital Signs Vital signs: Vital Signs Temp 98.6 F 09/06/22 04:00 Pulse 68 09/05/22 08:00 Resp 20 09/06/22 04:00 BP 139/68 09/06/22 04:00 Pulse Ox 93 L 09/06/22 04:00 FiO2 Intake & Output 09/05/22 09/05/22 09/06/22 06:59 18:59 06:59 Intake Total 118 400 Output Total 3032 544 9674 Balance -1000 -082 3100 Weight 72 kg 61.5 kg Intake: Intake, IV Titration 100 Amount Furosemide 100 mg In 100 Sodium Chloride 0.9% 90 ml @ 10 MG/HR 10 mls/hr IV .Q10H [facility] Rx#: [id number] Oral 118 0 Hemodialysis 300 Output: Urine 2900 877 9297 Hemodialysis 2500 Other: Voiding Method External Catheter External Catheter External Catheter # Bowel Movements 1 - Labs CBC & Chem 7: 09/04/22 08:08 09/04/22 08:08 Labs: Abnormal Lab Results - Last 24 Hours (Table) 09/05/22 09/05/22 09/05/22 Range/Units 11:24 16:19 20:03 POC Glucose (mg/dL) 225 H 144 H 119 H (70-110) mg/dL 09/06/22 Range/Units 05:59 POC Glucose (mg/dL) 129 H (70-110) mg/dL
[2022-09-06] MEDS: INSULN ASP PRT/INSULIN ASPART 100 UNIT/ML 10 ML VIAL SQ SCH ×2 (07:34→21:44)
[2022-09-06] MEDS: PANTOPRAZOLE 40 MG TABLET PO SCH (07:35)
[2022-09-06] MEDS: FUROSEMIDE 100 MG in SODIUM CHLORIDE 0.9% 90 ML IV SCH (07:35)
[2022-09-06] MEDS: LEVOTHYROXINE 75 MCG TAB PO SCH (07:35)
[2022-09-06] MEDS: INSULIN ASPART (NovoLOG) 100 UNIT/ML VIAL SQ SCH ×4 (07:38→21:52)
[2022-09-06] MEDS: CYANOCOBALAMIN 500 MCG TAB PO SCH (09:29)
[2022-09-06] MEDS: busPIRone HCl 10 MG TAB PO SCH ×2 (09:29→21:52)
[2022-09-06] MEDS: DOCUSATE 100 MG CAP PO SCH ×2 (09:29→21:57)
[2022-09-06] MEDS: ATORVASTATIN 20 MG TAB PO SCH (09:29)
[2022-09-06] MEDS: LACTULOSE 20 GM/30 ML CUP PO SCH ×3 (09:29→22:37)
[2022-09-06] MEDS: MULTIVITAMINS, THERA 1 EACH TAB PO SCH (09:29)
[2022-09-06] MEDS: allopurinoL 100 MG TAB PO SCH ×2 (09:29→21:52)
[2022-09-06] MEDS: hydrALAZINE HCL 50 MG TAB PO SCH ×3 (09:29→21:52)
[2022-09-06] MEDS: POTASSIUM CHLORIDE ER 20 MEQ TAB.ER PO SCH (09:29)
[2022-09-06] MEDS: NEBIVOLOL 5 MG TAB PO SCH ×2 (09:30→22:37)
[2022-09-06] MEDS: HEPARIN SODIUM,PORCINE/PF 5,000 UNIT/0.5 ML SYRINGE SQ SCH ×3 (09:30→22:37)
[2022-09-06] MEDS: SODIUM FERRIC GLUCONAT-SUCROSE 125 MG in SODIUM CHLORIDE 0.9% 100 ML IVPB SCH (09:31)
--- NOTE | 2022-09-06 09:41 | P.PN ---
Subjective Patient is seen in follow-up for acute kidney injury on chronic kidney disease. Started on hemodialysis 09/05/2022. Has a right femoral dialysis catheter. Dyspnea improved. Still on Lasix drip. Hemodynamically stable. Nonoliguric. Vital signs are stable. General: No acute distress. HEENT: Head exam is unremarkable. On nasal cannula. LUNGS: No audible rhonchi or wheezes. HEART: Rate and Rhythm are regular. ABDOMEN: Nontender. EXTREMITITES: No edema. Objective - Vital Signs Vital signs: Vital Signs Temp 98.6 F 09/06/22 04:00 Pulse 68 09/05/22 08:00 Resp 20 09/06/22 04:00 BP 139/68 09/06/22 04:00 Pulse Ox 94 L 09/06/22 08:33 FiO2 Intake & Output 09/05/22 09/06/22 09/06/22 18:59 06:59 18:59 Intake Total 118 400 78 Output Total 700 3500 Balance -582 -3100 78 Weight 61.5 kg Intake: Intake, IV Titration 100 78 Amount Furosemide 100 mg In 100 78 Sodium Chloride 0.9% 90 ml @ 10 MG/HR 10 mls/hr IV .Q10H [facility] Rx#: [id number] Oral 118 0 Hemodialysis 300 Output: Urine 700 1000 Hemodialysis 2500 Other: Voiding Method External Catheter External Catheter - Labs CBC & Chem 7: 09/04/22 08:08 09/04/22 08:08 Labs: Abnormal Lab Results - Last 24 Hours (Table) 09/05/22 09/05/22 09/05/22 Range/Units 11:24 16:19 20:03 POC Glucose (mg/dL) 225 H 144 H 119 H (70-110) mg/dL 09/06/22 Range/Units 05:59 POC Glucose (mg/dL) 129 H (70-110) mg/dL Assessment and Plan Plan: Assessment: 1. Acute kidney injury secondary to ATN secondary to cardiorenal syndrome. Also concern for progression of underlying chronic kidney disease stage IV. Patient was following with a packaging coordinator in [place] and recently moved to [place]. No hydronephrosis noted on kidney ultrasound. 1+ protein on UA. P atient has underlying diabetic kidney disease. Started on hemodialysis 09/05/2022. Creatinine 2.87 on admission and up to 3.56 this admission. 2. Volume overload. Improving to diuresis and ultrafiltration. 3. Acute on chronic diastolic CHF and moderate tricuspid regurgitation. 4. Diabetes mellitus. 5. Anemia of chronic kidney disease. Iron deficiency noted. Receiving IV iron. 6. Metabolic acidosis secondary to chronic kidney disease. 7. Hypertension with chronic kidney disease. Stable. 8. Chronic kidney disease mineral bone disease. Phosphorous 4.6, vitamin D 35 and PTH 79 this admission. Plan: Hemodialysis today. Stop Lasix drip. Add IV Lasix 60 mg twice daily. Maintain low salt diet and fluid restriction. Continue to monitor renal function and urine output. Monitor for renal recovery.
--- NOTE | 2022-09-06 11:38 | P.PN ---
Subjective Progress Note Date: 09/06/22 Principal diagnosis: Shortness of breath. Pulmonary consult dated 09/02/2022. 87-year-old female who recently moved back to [place] from [place]. She presented to the emergency department on August 31, complaining of shortness of breath. The patient is currently seen today in room 366. Her 3 daughters are present. She apparently been having shortness breath for a number of days, and decided to come into the hospital to be evaluated. She does not have a family doctor in this area, and is hoping to establish herself with Dr. Chanell Turk. She does have a remote history of tobacco use. She smoked only socially. The patient denies a history of chronic lung disease. She appears to have diastolic CHF. Her chest x-ray was consistent with fluid overload, and her N-terminal proBNP was elevated. The patient's currently on 6 L of oxygen. She has been seen by cardiology. In addition to diastolic CHF, she has a history of hyperlipidemia, diabetes, hypothyroidism, insomnia, gastroesophageal reflux disease, and gout. Laboratory data from September 01 showed white count of 7.9, hemoglobin 9.3, hematocrit 29.1, and a normal platelet count. Sodium 136, potassium 3.5, chlorides 102, CO2 22, BUN 81, and creatinine 2.86. The patient's troponins were 0.156 and 0.112. N-terminal proBNP was 7580. Chest x- ray was consistent with fluid overload. Dopplers of the lower semis were negative. Pulmonary perfusion lung scan, was negative. Progress note dated 09/03/2022. The patient is seen today in room 366. She was seen in consultation yesterday. Please see the note above. She remains on saline at 10 mL an hour, and also oxygen is 7 L nasal cannula. She was admitted with a diagnosis of CHF. She has diastolic CHF. Currently, she seems to be doing about the same, no better, but no worse. No new labs today other than a blood glucose of 226. A repeat chest x-ray was ordered for tomorrow. Progress note dated 09/04/2022. The patient is seen today in room 366. Currently, she is on 7 L of oxygen. She's not receiving any IV fluids. Chest x-rays consistent with fluid overload. The patient does feel fatigued, and a short of breath on exertion. She was admitted with a diagnosis of diastolic CHF. White count 7.8, hemoglobin 9.9, hematocrit 31.2, and platelet count is normal. Sodium 131, potassium 4.1, chlorides 100, CO2 20, BUN 89, and creatinine 3.33. Progress note dated 09/05/2022. 87-year-old female seen today in room 366. She was admitted with hypoxemic respiratory failure, secondary to fluid overload. Unfortunately, her renal function has worsened, and the patient will likely need hemodialysis. I suspect a hemodialysis catheter will be placed today. Her chest x-ray shows fluid overload. She does have diastolic CHF. She's currently on 7 L of oxygen. That has not really improved at all. No new labs today other glucose of 225. Her creatinine is up to 3.33. Her BUN from yesterday was 89. Progress note dated 09/06/2022. 87-year-old female seen today in room 366. The patient had a hemodialysis catheter placed yesterday. She had hemodialysis, and 2 L of fluid was removed. She's currently on 9 L high flow nasal cannula, and is receiving a Lasix drip at 10 mg an hour. She's feeling a bit better today than she did yesterday, and clinically, she looks a bit better. Lab data today includes a glucose of 129. Objective - Vital Signs Vital signs: Vital Signs Temp 98.6 F 09/06/22 04:00 Pulse 68 09/05/22 08:00 Resp 20 09/06/22 04:00 BP 139/68 09/06/22 04:00 Pulse Ox 94 L 09/06/22 08:33 FiO2 Intake & Output 09/05/22 09/06/22 09/06/22 18:59 06:59 18:59 Intake Total 118 400 318 Output Total 700 3500 Balance -582 -3100 318 Weight 61.5 kg Intake: Intake, IV Titration 100 78 Amount Furosemide 100 mg In 100 78 Sodium Chloride 0.9% 90 ml @ 10 MG/HR 10 mls/hr IV .Q10H [facility] Rx#: [id number] Oral 118 0 240 Hemodialysis 300 Output: Urine 700 1000 Hemodialysis 2500 Other: Voiding Method External Catheter External Catheter - Exam No acute distress, oriented 3. Currently the patient's on 9 L. Saturation is 94 %. HEENT examination is grossly unremarkable. Neck supple. Full range of motion. No adenopathy thyromegaly or neck vein distention. Cardiovascular examination reveals regular rhythm rate. S1-S2 normal. No S3 or S4. Heart sounds are distant. Heart rate 76 bpm. A soft systolic murmur is noted. Lungs reveal scattered rhonchi and crackles. No wheezes. Breath sounds equal bilaterally. Abdomen soft bowel sounds are heard. No masses or tenderness. Extremities are intact. No cyanosis clubbing or edema. Skin is without rash or lesion. Neurologic examination is brief but nonfocal. - Labs CBC & Chem 7: 09/04/22 08:08 09/04/22 08:08 Labs: Abnormal Lab Results - Last 24 Hours (Table) 09/05/22 09/05/22 09/06/22 Range/Units 16:19 20:03 05:59 POC Glucose (mg/dL) 144 H 119 H 129 H (70-110) mg/dL Assessment and Plan Assessment: Acute hypoxemic respiratory failure, secondary to acute on chronic diastolic CHF. History of diabetes mellitus. Acute on chronic kidney disease, with initiation of hemodialysis on 09/05/2022. History of hyperlipidemia. History of hypothyroidism. History of hypertension. History of gastroesophageal reflux disease. History of gout. Remote history of tobacco use. Plan: Plan dated 09/02/2022. The patient appears not have any significant pulmonary disease. I believe most of her shortness of breath and hypoxemia relates to diastolic CHF. She is currently on 6 L of oxygen, with saturations between 90% and 92%. N-terminal pr oBNP was elevated. The patient has been seen by cardiology. We will continue to follow make recommendations along the way. Prognosis is guarded. The patient currently does not have a family doctor, but is hoping to get in with Dr. Chanell Turk. Prognosis is guarded. Plan dated 09/03/2022. The patient remains on high flow oxygen at 7 L nasal cannula. Chest x-ray was ordered for tomorrow. The patient feels about the same today as she did yesterday. She doesn't feel any better or any worse. Labs, x-rays, and medications are all reviewed. The patient's overall prognosis remains guarded. We will continue to follow the patient and make recommendations along the way. Plan dated 09/04/2022. The patient remains on oxygen at 7 L. Saturations are 92%. The patient feels slightly better today than yesterday. Labs, x-rays, and medications are reviewed. She continues on IV Lasix. Chest x-rays consistent with CHF. We will continue to follow the patient and make recommendations along the way. Prognosis is certainly guarded. Plan dated 09/05/2022. The patient's oxygen requirements have not improved, and the patient's chest x- ray still shows a pattern of CHF. The patient was seen by nephrology, and the plan is to place a hemodialysis catheter, and start the patient on hemodialysis either today or tomorrow. Additional recommendations and suggestions are forthcoming. Her labs, x-rays, and medications are reviewed. Respiratory status has not improved. She short of breath with any activity. He to follow the patient and make recommendations along the way. Plan dated 09/06/2022. The patient had a hemodialysis catheter placed yesterday. She did have dialysis, and 2 L of fluid was removed. She is up to 9 L high flow nasal cannula. She's getting a Lasix drip at 10 mg an hour. Laboratory data is currently pending. Clinically, she feels better. We will continue to follow the patient and make recommendations along the way. Prognosis is guarded. Time with Patient: Less than 30
[2022-09-06 11:42] LABS: Glucose,Whole Blood 129 mg/dL (70-110)
[2022-09-06] MEDS: FUROSEMIDE 10 MG/ML 10 ML VIAL IV SCH ×2 (15:27→21:57)
[2022-09-06 16:28] LABS: Glucose,Whole Blood 171 mg/dL (70-110)
--- NOTE | 2022-09-06 18:02 | P.PN ---
Subjective Progress Note Date: 09/04/22 87 years old female with past medical history of chronic kidney disease, chronic heart failure, hypertension, hyperlipidemia, hypothyroidism, diabetes mellitus, history of GERD. Patient was recently moved from [place] back to [place]. Patient states she came because of dyspnea and leg swelling for 1 month, last night she flew from [place] back to [place], Patient uses CPAP machine at night. She's been constipated other than that she denies any specific GI urinary or neurological symptoms She quit smoking 40 years ago and drinking alcohol 20 years ago. No illicit drugs. She's been complaining of from right calf pain and ultrasound was negative for DVT. She is not on oxygen at home She moved to [place] with her daughters On admission she is afebrile, mildly tachypneic, hypertensive and she was saturating 91% on 4 L oxygen via nasal cannula improved to 95% She has mild leukocytosis of 11.4, hemoglobin 10.5. Risks of CBC is unremarkable. D-dimer 2.3. BMP showing a creatinine of 2.8, unknown baseline Glucose 126. Liver enzymes unremarkable Elevated troponin 0.15. ProBNP is elevated 7580. EKG showing normal sinus rhythm with no significant ST-T changes and QTC 410. Chest x-ray: CHF Venous Doppler showed no evidence of deep venous thrombosis Objective - Vital Signs Vital signs: Vital Signs Temp 97.5 F L 09/04/22 12:05 Pulse 71 09/04/22 12:05 Resp 20 09/04/22 12:05 BP 148/61 09/04/22 12:05 Pulse Ox 93 L 09/04/22 12:05 FiO2 Intake & Output 09/03/22 09/04/22 09/04/22 18:59 06:59 18:59 Intake Total 368 608 Output Total 350 800 300 Balance 18 -800 308 Weight 77.1 kg Intake: IV 10 10 Invasive Line 1 10 10 Oral 358 598 Output: Urine 350 800 300 Other: Voiding Method External Catheter External Catheter External Catheter - Exam GENERAL: The patient is alert and oriented x3, not in any acute distress. Well developed, well nourished. HEENT: Pupils are round and equally reacting to light. EOMI. No scleral icterus. No conjunctival pallor. Normocephalic, atraumatic. No pharyngeal erythema. No thyromegaly. CARDIOVASCULAR: S1 and S2 present. No murmurs, rubs, or gallops. PULMONARY: Chest is clear to auscultation, no wheezing or crackles. ABDOMEN: Soft, nontender, nondistended, normoactive bowel sounds. No palpable organomegaly. MUSCULOSKELETAL: No joint swelling or deformity. EXTREMITIES: No cyanosis, clubbing, or pedal edema. NEUROLOGICAL: Gross neurological examination did not reveal any focal deficits. SKIN: No rashes. - Labs CBC & Chem 7: 09/04/22 08:08 09/04/22 08:08 Labs: Abnormal Lab Results - Last 24 Hours (Table) 09/03/22 09/03/22 09/04/22 Range/Units 16:25 19:50 06:07 RBC (3.80-5.40) m/uL Hgb (11.4-16.0) gm/dL Hct (34.0-46.0) % RDW (11.5-15.5) % Sodium (137-145) mmol/L Carbon Dioxide (22-30) mmol/L BUN (7-17) mg/dL Creatinine (0.52-1.04) mg/dL Glucose (74-99) mg/dL POC Glucose (mg/dL) 196 H 167 H 129 H (70-110) mg/dL Calcium (8.4-10.2) mg/dL 09/04/22 09/04/22 09/04/22 Range/Units 08:08 08:08 11:49 RBC 3.43 L (3.80-5.40) m/uL Hgb 9.9 L (11.4-16.0) gm/dL Hct 31.2 L (34.0-46.0) % RDW 15.9 H (11.5-15.5) % Sodium 131 L (137-145) mmol/L Carbon Dioxide 20 L (22-30) mmol/L BUN 89 H (7-17) mg/dL Creatinine 3.33 H (0.52-1.04) mg/dL Glucose 165 H (74-99) mg/dL POC Glucose (mg/dL) 233 H (70-110) mg/dL Calcium 8.3 L (8.4-10.2) mg/dL Assessment and Plan Assessment: Acute on chronic diastolic CHF exacerbation Acute hypoxic respiratory failure secondary to above Chronic kidney disease, unknown baseline with possible elements of acute kidney injury Elevated troponin could be secondary to kidney disease and heart failure Diabetes mellitus Hypertension Hyperlipidemia History of osteoarthritis Hypothyroidism History of sleep apnea on CPAP/BiPAP Monitor vital signs Monitor CBC Monitor CMP Continue telemetry monitoring Strict I's and O's daily weights Continue IV Lasix 60 g twice a day Continue aspirin, Lipitor Continue hydralazine, nebivolol, Procardia Continue iron supplementation Aggressive blood sugar levels, increase NovoLog mix 7030-40 units twice a day, continue sliding scale insulin Follow-up on nephrology recommendations Follow-up on cardiology recommendations follow-up on pulmonary recommendations Labs and medication were reviewed.. Continue same treatment. Continue with symptomatic treatment. Resume home medication. Monitor labs and vitals. DVT and GI prophylaxis. Further recommendations as per clinical course of the patient
--- NOTE | 2022-09-06 18:04 | P.PN ---
Subjective Progress Note Date: 09/05/22 87 years old female with past medical history of chronic kidney disease, chronic heart failure, hypertension, hyperlipidemia, hypothyroidism, diabetes mellitus, history of GERD. Patient was recently moved from [place] back to [place]. Patient states she came because of dyspnea and leg swelling for 1 month, last night she flew from [place] back to [place], Patient uses CPAP machine at night. She's been constipated other than that she denies any specific GI urinary or neurological symptoms She quit smoking 40 years ago and drinking alcohol 20 years ago. No illicit drugs. She's been complaining of from right calf pain and ultrasound was negative for DVT. She is not on oxygen at home She moved to [place] with her daughters On admission she is afebrile, mildly tachypneic, hypertensive and she was saturating 91% on 4 L oxygen via nasal cannula improved to 95% She has mild leukocytosis of 11.4, hemoglobin 10.5. Risks of CBC is unremarkable. D-dimer 2.3. BMP showing a creatinine of 2.8, unknown baseline Glucose 126. Liver enzymes unremarkable Elevated troponin 0.15. ProBNP is elevated 7580. EKG showing normal sinus rhythm with no significant ST-T changes and QTC 410. Chest x-ray: CHF Venous Doppler showed no evidence of deep venous thrombosis Interval change 09/05/2022 Patient is seen and evaluated in room at bedside; discussed with nursing staff; no specific complaints reported Patient remains on 7 L of oxygen. -- Chest x-rays consistent with fluid overload. Echocardiogram is reported as normal left ventricular systolic function White count 7.8, hemoglobin 9.9, hematocrit 31.2, and platelet count is normal. Sodium 131, potassium 4.1, chlorides 100, CO2 20, BUN 89, and creatinine 3.33. Cardiology on board and recommending to continue with IV Lasix; continue to monitor strict MARIA DE JESUS's, daily weights Objective - Vital Signs Vital signs: Vital Signs Temp 97 F L 09/05/22 08:00 Pulse 68 09/05/22 08:00 Resp 22 09/05/22 08:00 BP 135/61 09/05/22 08:00 Pulse Ox 92 L 09/05/22 08:00 FiO2 Intake & Output 09/04/22 09/05/22 09/05/22 18:59 06:59 18:59 Intake Total 1088 118 Output Total 650 1000 Balance 438 -1000 118 Weight 72 kg Intake: IV 10 Invasive Line 1 10 Oral 1078 118 Output: Urine 650 1000 Other: Voiding Method External Catheter External Catheter External Catheter # Bowel Movements 1 - Exam GENERAL: The patient is alert and oriented x3, not in any acute distress. Well developed, well nourished. HEENT: Pupils are round and equally reacting to light. EOMI. No scleral icterus. No conjunctival pallor. Normocephalic, atraumatic. No pharyngeal erythema. No thyromegaly. CARDIOVASCULAR: S1 and S2 present. No murmurs, rubs, or gallops. PULMONARY: Chest is clear to auscultation, no wheezing or crackles. ABDOMEN: Soft, nontender, nondistended, normoactive bowel sounds. No palpable organomegaly. MUSCULOSKELETAL: No joint swelling or deformity. EXTREMITIES: No cyanosis, clubbing, or pedal edema. NEUROLOGICAL: Gross neurological examination did not reveal any focal deficits. SKIN: No rashes. - Labs CBC & Chem 7: 09/04/22 08:08 09/04/22 08:08 Labs: Abnormal Lab Results - Last 24 Hours (Table) 09/04/22 09/04/22 09/05/22 Range/Units 16:42 19:52 06:11 POC Glucose (mg/dL) 269 H 264 H 120 H (70-110) mg/dL 09/05/22 Range/Units 11:24 POC Glucose (mg/dL) 225 H (70-110) mg/dL Assessment and Plan Assessment: Acute on chronic diastolic CHF exacerbation Acute hypoxic respiratory failure secondary to above Chronic kidney disease, unknown baseline with possible elements of acute kidney injury Elevated troponin could be secondary to kidney disease and heart failure Diabetes mellitus Hypertension Hyperlipidemia History of osteoarthritis Hypothyroidism History of sleep apnea on CPAP/BiPAP Monitor vital signs Monitor CBC Monitor CMP Continue telemetry monitoring Strict I's and O's daily weights Continue IV Lasix 60 g twice a day Continue aspirin, Lipitor Continue hydralazine, nebivolol, Procardia Continue iron supplementation Aggressive blood sugar levels, increase NovoLog mix 7030-40 units twice a day, continue sliding scale insulin Follow-up on nephrology recommendations Follow-up on cardiology recommendations follow-up on pulmonary recommendations Labs and medication were reviewed.. Continue same treatment. Continue with symptomatic treatment. Resume home medication. Monitor labs and vitals. DVT and GI prophylaxis. Further recommendations as per clinical course of the patient
--- NOTE | 2022-09-06 18:22 | P.PN ---
Subjective Progress Note Date: 09/06/22 87 years old female with past medical history of chronic kidney disease, chronic heart failure, hypertension, hyperlipidemia, hypothyroidism, diabetes mellitus, history of GERD. Patient was recently moved from [place] back to [place]. Patient states she came because of dyspnea and leg swelling for 1 month, last night she flew from [place] back to [place], Patient uses CPAP machine at night. She's been constipated other than that she denies any specific GI urinary or neurological symptoms She quit smoking 40 years ago and drinking alcohol 20 years ago. No illicit drugs. She's been complaining of from right calf pain and ultrasound was negative for DVT. She is not on oxygen at home She moved to [place] with her daughters On admission she is afebrile, mildly tachypneic, hypertensive and she was saturating 91% on 4 L oxygen via nasal cannula improved to 95% She has mild leukocytosis of 11.4, hemoglobin 10.5. Risks of CBC is unremarkable. D-dimer 2.3. BMP showing a creatinine of 2.8, unknown baseline Glucose 126. Liver enzymes unremarkable Elevated troponin 0.15. ProBNP is elevated 7580. EKG showing normal sinus rhythm with no significant ST-T changes and QTC 410. Chest x-ray: CHF Venous Doppler showed no evidence of deep venous thrombosis Interval change 09/05/2022 Patient is seen and evaluated in room at bedside; discussed with nursing staff; no specific complaints reported Patient remains on 7 L of oxygen. -- Chest x-rays consistent with fluid overload. Echocardiogram is reported as normal left ventricular systolic function White count 7.8, hemoglobin 9.9, hematocrit 31.2, and platelet count is normal. Sodium 131, potassium 4.1, chlorides 100, CO2 20, BUN 89, and creatinine 3.33. Cardiology on board and recommending to continue with IV Lasix; continue to monitor strict MARIA DE JESUS's, daily weights 09/06/2022 Patient is seen and evaluated in room undergoing dialysis; family is at bedside Patient is status post temporary dialysis catheter placement and underwent hemodialysis yesterday and able to remove 2 L; patient reports improvement in breathing Vital signs are reviewed and remained stable; no cold for hemodialysis to remove any of the 2 L if possible; patient remains on IV Lasix infusion; we will plan to continue to monitor strict MARIA DE JESUS's and daily weights; avoid nephrotoxins and hypotension -- Nephrology recommending to discontinue Lasix infusion and transitioned to Lasix 60 mg IV every 12 hours Objective - Vital Signs Vital signs: Vital Signs Temp 97.8 F 09/06/22 08:00 Pulse 68 09/05/22 08:00 Resp 20 09/06/22 08:00 BP 132/54 09/06/22 08:00 Pulse Ox 94 L 09/06/22 08:33 FiO2 Intake & Output 09/05/22 09/06/22 09/06/22 18:59 06:59 18:59 Intake Total 118 400 318 Output Total 700 3500 Balance -582 -3100 318 Weight 61.5 kg Intake: Intake, IV Titration 100 78 Amount Furosemide 100 mg In 100 78 Sodium Chloride 0.9% 90 ml @ 10 MG/HR 10 mls/hr IV .Q10H [facility] Rx#: [id number] Oral 118 0 240 Hemodialysis 300 Output: Urine 700 1000 Hemodialysis 2500 Other: Voiding Method External Catheter External Catheter External Catheter - Exam GENERAL: The patient is alert and oriented x3, not in any acute distress. Well developed, well nourished. HEENT: Pupils are round and equally reacting to light. EOMI. No scleral icterus. No conjunctival pallor. Normocephalic, atraumatic. No pharyngeal erythema. No thyromegaly. CARDIOVASCULAR: S1 and S2 present. No murmurs, rubs, or gallops. PULMONARY: Chest is clear to auscultation, no wheezing or crackles. ABDOMEN: Soft, nontender, nondistended, normoactive bowel sounds. No palpable organomegaly. MUSCULOSKELETAL: No joint swelling or deformity. EXTREMITIES: No cyanosis, clubbing, or pedal edema. NEUROLOGICAL: Gross neurological examination did not reveal any focal deficits. SKIN: No rashes. - Labs CBC & Chem 7: 09/04/22 08:08 09/04/22 08:08 Labs: Abnormal Lab Results - Last 24 Hours (Table) 09/05/22 09/05/22 09/06/22 Range/Units 16:19 20:03 05:59 POC Glucose (mg/dL) 144 H 119 H 129 H (70-110) mg/dL 09/06/22 Range/Units 11:40 POC Glucose (mg/dL) 129 H (70-110) mg/dL Assessment and Plan Assessment: Acute on chronic diastolic CHF exacerbation Acute hypoxic respiratory failure secondary to above Chronic kidney disease, unknown baseline with possible elements of acute kidney injury Elevated troponin could be secondary to kidney disease and heart failure Diabetes mellitus Hypertension Hyperlipidemia History of osteoarthritis Hypothyroidism History of sleep apnea on CPAP/BiPAP Monitor vital signs Monitor CBC Monitor CMP Continue telemetry monitoring Strict I's and O's daily weights Continue IV Lasix 60 g twice a day Continue aspirin, Lipitor Continue hydralazine, nebivolol, Procardia Continue iron supplementation Aggressive blood sugar levels, increase NovoLog mix 7030-40 units twice a day, continue sliding scale insulin Follow-up on nephrology recommendations Follow-up on cardiology recommendations follow-up on pulmonary recommendations Labs and medication were reviewed.. Continue same treatment. Continue with symptomatic treatment. Resume home medication. Monitor labs and vitals. DVT and GI prophylaxis. Further recommendations as per clinical course of the patient
[2022-09-06 20:07] LABS: Glucose,Whole Blood 241 mg/dL (70-110)
[2022-09-06] MEDS: ASPIRIN 81 MG PO SCH (21:52)
[2022-09-06] MEDS: MELATONIN 5 MG TABLET PO SCH (21:52)
[2022-09-07 06:28] LABS: Glucose,Whole Blood 133 mg/dL (70-110)
[2022-09-07] MEDS: PANTOPRAZOLE 40 MG TABLET PO SCH (06:54)
[2022-09-07] MEDS: LEVOTHYROXINE 75 MCG TAB PO SCH (06:54)
[2022-09-07] MEDS: INSULN ASP PRT/INSULIN ASPART 100 UNIT/ML 10 ML VIAL SQ SCH ×2 (06:54→18:45)
[2022-09-07] MEDS: INSULIN ASPART (NovoLOG) 100 UNIT/ML VIAL SQ SCH ×4 (07:18→20:50)
--- NOTE | 2022-09-07 07:18 | P.PN ---
Subjective Progress Note Date: 09/07/22 Principal diagnosis: Heart failure The patient is an 87-year-old female patient with a past medical history significant for heart failure with preserved ejection fraction as well as chronic kidney disease and hypertension and dyslipidemia was admitted to the hospital with heart failure exacerbation. 09/04/2022 The patient was seen and evaluated this morning. She remains failure. She remains hypoxic requiring high flow oxygen at least at 7 L. She has been urinating significantly. The kidney function and the rest of the blood work from the morning still pending at this point. Currently she is on Lasix IV. Nephrology continues to be on the case. The echo showed normal LV systolic function. September [id number] She was seen and evaluated this morning. She continues to be hypoxic on 7 L of oxygen to maintain saturation above 90%. Hemodynamically she is stable patient has been diuresing well overnight. She still short of breath even getting a normal conversation and she is asking about hospice. I am going to address that with the internal medicine team. Meanwhile continue the current dose of Lasix IV. Nephrology service as on the case. September 062022 The patient was seen this morning. She underwent dialysis yesterday. Overall she is feeling better today. She continues to be on Lasix. She continues to be hypoxic requiring oxygen at 8 L. She is going to undergo another dialysis later on today. No pain in the chest. She continues to have shortness of breath which has somewhat improved after dialysis and no lower extremity edema noted. September 072022 The patient was seen and evaluated this morning. She is feeling better. The shortness of breath is improved. She continues to be hypoxic requiring my liters of oxygen. She underwent dialysis twice so far and she is going to have another one tomorrow. No pain in the chest. She has been maintaining normal sinus mechanism. No blood work from this morning as of yet. She continues to be on Lasix IV and she has been diuresing extremely well. Assessment Heart failure exacerbation secondary to heart failure with preserved ejection fraction Chronic kidney disease status post dialysis Multiple comorbid conditions including hypertension and dyslipidemia Plan Continue the current medical regimen Continue the current dose of Lasix IV Follow-up with the patient Objective - Vital Signs Vital signs: Vital Signs Temp 97.5 F L 09/07/22 04:00 Pulse 68 09/05/22 08:00 Resp 18 09/07/22 04:00 BP 131/67 07/09/23 04:00 Pulse Ox 93 L 09/07/22 04:00 FiO2 Intake & Output 09/06/22 09/07/22 09/07/22 18:59 06:59 18:59 Intake Total 1058 280 Output Total 2500 200 Balance -1442 80 Weight 63.5 kg Intake: Intake, IV Titration 78 Amount Furosemide 100 mg In 78 Sodium Chloride 0.9% 90 ml @ 10 MG/HR 10 mls/hr IV .Q10H [facility] Rx#: [id number] Oral 480 280 Hemodialysis 500 Output: Urine 200 Hemodialysis 2500 Other: Voiding Method External Catheter External Catheter # Bowel Movements 3 - Labs CBC & Chem 7: 09/04/22 08:08 09/04/22 08:08 Labs: Abnormal Lab Results - Last 24 Hours (Table) 09/06/22 09/06/22 09/06/22 Range/Units 11:40 16:26 20:05 POC Glucose (mg/dL) 129 H 171 H 241 H (70-110) mg/dL 09/07/22 Range/Units 06:26 POC Glucose (mg/dL) 133 H (70-110) mg/dL
--- NOTE | 2022-09-07 10:20 | P.PN ---
Subjective Patient is seen in follow-up for acute kidney injury on chronic kidney disease. Started on hemodialysis 09/05/2022. Has a right femoral dialysis catheter. No problems with dialysis yesterday. Dyspnea improved. On IV Lasix. Patient states she's barely voiding. Hemodynamically stable. Vital signs are stable. General: No acute distress. HEENT: Head exam is unremarkable. On nasal cannula. LUNGS: No audible rhonchi or wheezes. HEART: Rate and Rhythm are regular. ABDOMEN: Nontender. EXTREMITITES: No edema. Objective - Vital Signs Vital signs: Vital Signs Temp 97.5 F L 09/07/22 04:00 Pulse 68 09/05/22 08:00 Resp 18 09/07/22 04:00 BP 131/67 09/07/22 04:00 Pulse Ox 93 L 09/07/22 08:13 FiO2 Intake & Output 09/06/22 09/07/22 09/07/22 18:59 06:59 18:59 Intake Total 1058 280 180 Output Total 2500 200 Balance -1442 80 180 Weight 63.5 kg Intake: Intake, IV Titration 78 Amount Furosemide 100 mg In 78 Sodium Chloride 0.9% 90 ml @ 10 MG/HR 10 mls/hr IV .Q10H [facility] Rx#: [id number] Oral 480 280 180 Hemodialysis 500 Output: Urine 200 Hemodialysis 2500 Other: Voiding Method External Catheter External Catheter # Bowel Movements 3 - Labs CBC & Chem 7: 09/04/22 08:08 09/04/22 08:08 Labs: Abnormal Lab Results - Last 24 Hours (Table) 09/06/22 09/06/22 09/06/22 Range/Units 11:40 16:26 20:05 POC Glucose (mg/dL) 129 H 171 H 241 H (70-110) mg/dL 09/07/22 Range/Units 06:26 POC Glucose (mg/dL) 133 H (70-110) mg/dL Assessment and Plan Plan: Assessment: 1. Acute kidney injury secondary to ATN secondary to cardiorenal syndrome. Also concern for progression of underlying chronic kidney disease stage IV. Patient was following with a board stacker in [place] and recently moved to [place]. No hydronephrosis noted on kidney ultrasound. 1+ protein on UA. Patient has underlying diabetic kidney disease. Started on hemodialysis 09/05/2022. Creatinine 2.87 on admission and up to 3.56 this admission. 2. Volume overload. Improving to diuresis and ultrafiltration. 3. Acute on chronic diastolic CHF and moderate tricuspid regurgitation. 4. Diabetes mellitus. 5. Anemia of chronic kidney disease. Iron deficiency noted. s/p IV iron. 6. Metabolic acidosis secondary to chronic kidney disease. 7. Hypertension with chronic kidney disease. Stable. 8. Chronic kidney disease mineral bone disease. Phosphorous 4.6, vitamin D 35 and PTH 79 this admission. Plan: Hemodialysis tomorrow. Maintain IV Lasix for now. Maintain low salt diet and fluid restriction. Continue to monitor renal function and urine output. Monitor for renal recovery. Outpatient dialysis to be set up by case management.
[2022-09-07] MEDS: Acetaminophen-Codeine 300-30mg TAB PO PRN (10:32)
[2022-09-07] MEDS: HEPARIN SODIUM,PORCINE/PF 5,000 UNIT/0.5 ML SYRINGE SQ SCH ×3 (10:33→23:38)
[2022-09-07] MEDS: CYANOCOBALAMIN 500 MCG TAB PO SCH (10:34)
[2022-09-07] MEDS: busPIRone HCl 10 MG TAB PO SCH ×2 (10:34→20:49)
[2022-09-07] MEDS: hydrALAZINE HCL 50 MG TAB PO SCH ×3 (10:34→20:49)
[2022-09-07] MEDS: MULTIVITAMINS, THERA 1 EACH TAB PO SCH (10:34)
[2022-09-07] MEDS: FUROSEMIDE 10 MG/ML 10 ML VIAL IV SCH ×2 (10:34→20:49)
[2022-09-07] MEDS: allopurinoL 100 MG TAB PO SCH ×2 (10:35→20:49)
[2022-09-07] MEDS: ATORVASTATIN 20 MG TAB PO SCH (10:35)
[2022-09-07] MEDS: POTASSIUM CHLORIDE ER 20 MEQ TAB.ER PO SCH ×2 (10:35→11:09)
[2022-09-07] MEDS: NEBIVOLOL 5 MG TAB PO SCH ×2 (10:35→21:24)
--- NOTE | 2022-09-07 11:03 | P.PN ---
Subjective Progress Note Date: 09/07/22 Principal diagnosis: Shortness of breath. Pulmonary consult dated 09/02/2022. 87-year-old female who recently moved back to [place] from [place]. She presented to the emergency department on August 31, complaining of shortness of breath. The patient is currently seen today in room 366. Her 3 daughters are present. She apparently been having shortness breath for a number of days, and decided to come into the hospital to be evaluated. She does not have a family doctor in this area, and is hoping to establish herself with Dr. Chanell Turk. She does have a remote history of tobacco use. She smoked only socially. The patient denies a history of chronic lung disease. She appears to have diastolic CHF. Her chest x-ray was consistent with fluid overload, and her N-terminal proBNP was elevated. The patient's currently on 6 L of oxygen. She has been seen by cardiology. In addition to diastolic CHF, she has a history of hyperlipidemia, diabetes, hypothyroidism, insomnia, gastroesophageal reflux disease, and gout. Laboratory data from September 01 showed white count of 7.9, hemoglobin 9.3, hematocrit 29.1, and a normal platelet count. Sodium 136, potassium 3.5, chlorides 102, CO2 22, BUN 81, and creatinine 2.86. The patient's troponins were 0.156 and 0.112. N-terminal proBNP was 7580. Chest x- ray was consistent with fluid overload. Dopplers of the lower semis were negative. Pulmonary perfusion lung scan, was negative. Progress note dated 09/03/2022. The patient is seen today in room 366. She was seen in consultation yesterday. Please see the note above. She remains on saline at 10 mL an hour, and also oxygen is 7 L nasal cannula. She was admitted with a diagnosis of CHF. She has diastolic CHF. Currently, she seems to be doing about the same, no better, but no worse. No new labs today other than a blood glucose of 226. A repeat chest x-ray was ordered for tomorrow. Progress note dated 09/04/2022. The patient is seen today in room 366. Currently, she is on 7 L of oxygen. She's not receiving any IV fluids. Chest x-rays consistent with fluid overload. The patient does feel fatigued, and a short of breath on exertion. She was admitted with a diagnosis of diastolic CHF. White count 7.8, hemoglobin 9.9, hematocrit 31.2, and platelet count is normal. Sodium 131, potassium 4.1, chlorides 100, CO2 20, BUN 89, and creatinine 3.33. Progress note dated 09/05/2022. 87-year-old female seen today in room 366. She was admitted with hypoxemic respiratory failure, secondary to fluid overload. Unfortunately, her renal function has worsened, and the patient will likely need hemodialysis. I suspect a hemodialysis catheter will be placed today. Her chest x-ray shows fluid overload. She does have diastolic CHF. She's currently on 7 L of oxygen. That has not really improved at all. No new labs today other glucose of 225. Her creatinine is up to 3.33. Her BUN from yesterday was 89. Progress note dated 09/06/2022. 87-year-old female seen today in room 366. The patient had a hemodialysis catheter placed yesterday. She had hemodialysis, and 2 L of fluid was removed. She's currently on 9 L high flow nasal cannula, and is receiving a Lasix drip at 10 mg an hour. She's feeling a bit better today than she did yesterday, and clinically, she looks a bit better. Lab data today includes a glucose of 129. Progress note dated August. 87-year-old female seen today in room 366. The patient has had 2 sessions of hemodialysis. During both sessions, 2 L of fluid was removed. The patient is feeling better. She has been weaned down to 8 liter high flow oxygen. Laboratory data today includes only a glucose of 133. The patient is feeling much improved. Her breathing is much better. She will have dialysis again tomorrow. Objective - Vital Signs Vital signs: Vital Signs Temp 97.5 F L 09/07/22 04:00 Pulse 68 09/05/22 08:00 Resp 18 09/07/22 04:00 BP 131/67 09/07/22 04:00 Pulse Ox 93 L 09/07/22 08:13 FiO2 Intake & Output 09/06/22 09/07/22 09/07/22 18:59 06:59 18:59 Intake Total 1058 280 180 Output Total 2500 200 Balance -1442 80 180 Weight 63.5 kg Intake: Intake, IV Titration 78 Amount Furosemide 100 mg In 78 Sodium Chloride 0.9% 90 ml @ 10 MG/HR 10 mls/hr IV .Q10H [facility] Rx#: [id number] Oral 480 280 180 Hemodialysis 500 Output: Urine 200 Hemodialysis 2500 Other: Voiding Method External Catheter External Catheter # Bowel Movements 3 - Exam No acute distress, oriented 3. Currently the patient's on 8 L. Saturation is 95 %. HEENT examination is grossly unremarkable. Neck supple. Full range of motion. No adenopathy thyromegaly or neck vein distention. Cardiovascular examination reveals regular rhythm rate. S1-S2 normal. No S3 or S4. Heart sounds are distant. Heart rate 81 bpm. A soft systolic murmur is noted. Lungs reveal scattered rhonchi and crackles. No wheezes. Breath sounds equal bilaterally. Abdomen soft bowel sounds are heard. No masses or tenderness. Extremities are intact. No cyanosis clubbing or edema. Skin is without rash or lesion. Neurologic examination is brief but nonfocal. - Labs CBC & Chem 7: 09/04/22 08:08 09/04/22 08:08 Labs: Abnormal Lab Results - Last 24 Hours (Table) 09/06/22 09/06/22 09/06/22 Range/Units 11:40 16:26 20:05 POC Glucose (mg/dL) 129 H 171 H 241 H (70-110) mg/dL 09/07/22 Range/Units 06:26 POC Glucose (mg/dL) 133 H (70-110) mg/dL Assessment and Plan Assessment: Acute hypoxemic respiratory failure, secondary to acute on chronic diastolic CHF. History of diabetes mellitus. Acute on chronic kidney disease, with initiation of hemodialysis on 09/05/2022. History of hyperlipidemia. History of hypothyroidism. History of hypertension. History of gastroesophageal reflux disease. History of gout. Remote history of tobacco use. Plan: Plan dated 09/02/2022. The patient appears not have any significant pulmonary disease. I believe most of her shortness of breath and hypoxemia relates to diastolic CHF. She is currently on 6 L of oxygen, with saturations between 90% and 92%. N-terminal proBNP was elevated. The patient has been seen by cardiology. We will continue to follow make recommendations along the way. Prognosis is guarded. The patient currently does not have a family doctor, but is hoping to get in with Dr. Chanell Turk. Prognosis is guarded. Plan dated 09/03/2022. The patient remains on high flow oxygen at 7 L nasal cannula. Chest x-ray was ordered for tomorrow. The patient feels about the same today as she did yesterday. She doesn't feel any better or any worse. Labs, x-rays, and medications are all reviewed. The patient's overall prognosis remains guarded. We will continue to follow the patient and make recommendations along the way. Plan dated 09/04/2022. The patient remains on oxygen at 7 L. Saturations are 92%. The patient feels slightly better today than yesterday. Labs, x-rays, and medications are reviewe d. She continues on IV Lasix. Chest x-rays consistent with CHF. We will continue to follow the patient and make recommendations along the way. Prognosis is certainly guarded. Plan dated 09/05/2022. The patient's oxygen requirements have not improved, and the patient's chest x- ray still shows a pattern of CHF. The patient was seen by nephrology, and the plan is to place a hemodialysis catheter, and start the patient on hemodialysis either today or tomorrow. Additional recommendations and suggestions are forthcoming. Her labs, x-rays, and medications are reviewed. Respiratory status has not improved. She short of breath with any activity. He to follow the patient and make recommendations along the way. Plan dated 09/06/2022. The patient had a hemodialysis catheter placed yesterday. She did have dialysis, and 2 L of fluid was removed. She is up to 9 L high flow nasal cannula. She's getting a Lasix drip at 10 mg an hour. Laboratory data is currently pending. Clinically, she feels better. We will continue to follow the patient and make recommendations along the way. Prognosis is guarded. Plan dated 09/07/2022. The patient is not going to have hemodialysis today. She will have hemodialysis again tomorrow. She had hemodialysis on the eighth, and the seventh. The patient had 2 L of fluid removed on both days. The patient's oxygen has been weaned down to 8 L high flow. Labs, x-rays, and medications are reviewed. Clinically, the patient is feeling much improved. Time with Patient: Less than 30
[2022-09-07] MEDS: DOCUSATE 100 MG CAP PO SCH ×2 (11:08→20:49)
[2022-09-07] MEDS: LACTULOSE 20 GM/30 ML CUP PO SCH ×3 (11:08→20:37)
[2022-09-07 11:34] LABS: Glucose,Whole Blood 159 mg/dL (70-110)
--- NOTE | 2022-09-07 12:16 | XR ---
EXAMINATION TYPE: XR chest 1V portable DATE OF EXAM: 09/07/2022 12:01 PM COMPARISON: Chest radiographs from 09/04/2022 TECHNIQUE: XR chest 1V portable Portable AP radiograph of the chest. CLINICAL INDICATION:Female, 87 years old with history of CHF; FINDINGS: Lungs/Pleura: Redemonstration of small to moderate-sized bilateral pleural effusions. No pneumothorax . Pulmonary vascularity: Pulmonary vascular congestion. Heart/mediastinum: Cardiomediastinal silhouette is enlarged and stable. Prominence of the bilateral h ilar regions. Atherosclerotic calcifications are seen in the aorta. Musculoskeletal: No acute osseous pathology. Degenerative changes of the thoracic spine. IMPRESSION: Overall similar examination with findings of CHF exacerbation as described above.
[2022-09-07 12:57] LABS: Anisocytosis Slight; HGB 10.3 gm/dL (11.4-16.0); Hypochromasia Slight; MCH 29.9 pg (25.0-35.0); MCHC 32.3 g/dL (31.0-37.0); MCV 92.5 fL (80.0-100.0); Mean Platelet Volume 8.4; Platelet Count 242 k/uL (150-450); RBC 3.46 m/uL (3.80-5.40); RDW 16.3 % (11.5-15.5); WBC 10.2 k/uL (3.8-10.6)
[2022-09-07 13:12] LABS: African American GFR (CKD) 17 (>60 ml/min/1.73 sqM); Anion Gap 11 mmol/L; Blood Urea Nitrogen 46 mg/dL (7-17); Calcium 8.9 mg/dL (8.4-10.2); Carbon Dioxide 22 mmol/L (22-30); Chloride 95 mmol/L (98-107); Glucose 143 mg/dL (74-99); Non-African American GFR(CKD) 14 (>60 ml/min/1.73 sqM); Phosphorus 4.1 mg/dL (2.5-4.5); Potassium 4.9 mmol/L (3.5-5.1); Sodium 128 mmol/L (137-145)
[2022-09-07 16:48] LABS: Glucose,Whole Blood 154 mg/dL (70-110)
--- NOTE | 2022-09-07 17:16 | P.PN ---
Subjective Progress Note Date: 09/07/22 87 years old female with past medical history of chronic kidney disease, chronic heart failure, hypertension, hyperlipidemia, hypothyroidism, diabetes mellitus, history of GERD. Patient was recently moved from [place] back to [place]. Patient states she came because of dyspnea and leg swelling for 1 month, last night she flew from [place] back to [place], Patient uses CPAP machine at night. She's been constipated other than that she denies any specific GI urinary or neurological symptoms She quit smoking 40 years ago and drinking alcohol 20 years ago. No illicit drugs. She's been complaining of from right calf pain and ultrasound was negative for DVT. She is not on oxygen at home She moved to [place] with her daughters On admission she is afebrile, mildly tachypneic, hypertensive and she was saturating 91% on 4 L oxygen via nasal cannula improved to 95% She has mild leukocytosis of 11.4, hemoglobin 10.5. Risks of CBC is unremarkable. D-dimer 2.3. BMP showing a creatinine of 2.8, unknown baseline Glucose 126. Liver enzymes unremarkable Elevated troponin 0.15. ProBNP is elevated 7580. EKG showing normal sinus rhythm with no significant ST-T changes and QTC 410. Chest x-ray: CHF Venous Doppler showed no evidence of deep venous thrombosis Interval change 09/05/2022 Patient is seen and evaluated in room at bedside; discussed with nursing staff; no specific complaints reported Patient remains on 7 L of oxygen. -- Chest x-rays consistent with fluid overload. Echocardiogram is reported as normal left ventricular systolic function White count 7.8, hemoglobin 9.9, hematocrit 31.2, and platelet count is normal. Sodium 131, potassium 4.1, chlorides 100, CO2 20, BUN 89, and creatinine 3.33. Cardiology on board and recommending to continue with IV Lasix; continue to monitor strict MARIA DE JESUS's, daily weights 09/06/2022 Patient is seen and evaluated in room undergoing dialysis; family is at bedside Patient is status post temporary dialysis catheter placement and underwent hemodialysis yesterday and able to remove 2 L; patient reports improvement in breathing Vital signs are reviewed and remained stable; no cold for hemodialysis to remove any of the 2 L if possible; patient remains on IV Lasix infusion; we will plan to continue to monitor strict MARIA DE JESUS's and daily weights; avoid nephrotoxins and hypotension -- Nephrology recommending to discontinue Lasix infusion and transitioned to Lasix 60 mg IV every 12 hours 09/07/2022 Patient is seen and evaluated resting comfortably in bed; patient is status post right femoral dialysis catheter placement with first hemodialysis session on 09/05/2022; patient had another dialysis session completed yesterday with removal of 2 L fluid. No dialysis planned till tomorrow; patient has been transitioned from IV Lasix infusion to injection; volume overload is improving with diuresis and ultrafiltration; patient remains on low salt and fluid restricted diet with close monitoring of renal function and urine output; patient will need to be set up for outpatient dialysis once deemed necessary by nephrology Objective - Vital Signs Vital signs: Vital Signs Temp 97.6 F 09/07/22 08:00 Pulse 68 09/05/22 08:00 Resp 18 09/07/22 08:00 BP 128/66 09/07/22 08:00 Pulse Ox 93 L 09/07/22 08:13 FiO2 Intake & Output 09/06/22 09/07/22 09/07/22 18:59 06:59 18:59 Intake Total 1058 280 360 Output Total 2500 200 Balance -1442 80 360 Weight 63.5 kg Intake: Intake, IV Titration 78 Amount Furosemide 100 mg In 78 Sodium Chloride 0.9% 90 ml @ 10 MG/HR 10 mls/hr IV .Q10H [facility] Rx#: [id number] Oral 480 280 360 Hemodialysis 500 Output: Urine 200 Hemodialysis 2500 Other: Voiding Method External Catheter External Catheter External Catheter # Bowel Movements 3 - Exam GENERAL: The patient is alert and oriented x3, not in any acute distress. Well developed, well nourished. HEENT: Pupils are round and equally reacting to light. EOMI. No scleral icterus. No conjunctival pallor. Normocephalic, atraumatic. No pharyngeal erythema. No thyromegaly. CARDIOVASCULAR: S1 and S2 present. No murmurs, rubs, or gallops. PULMONARY: Chest is clear to auscultation, no wheezing or crackles. ABDOMEN: Soft, nontender, nondistended, normoactive bowel sounds. No palpable organomegaly. MUSCULOSKELETAL: No joint swelling or deformity. EXTREMITIES: No cyanosis, clubbing, or pedal edema. NEUROLOGICAL: Gross neurological examination did not reveal any focal deficits. SKIN: No rashes. - Labs CBC & Chem 7: 09/07/22 12:19 09/07/22 12:19 Labs: Abnormal Lab Results - Last 24 Hours (Table) 09/06/22 09/06/22 09/07/22 Range/Units 16:26 20:05 06:26 RBC (3.80-5.40) m/uL Hgb (11.4-16.0) gm/dL Hct (34.0-46.0) % RDW (11.5-15.5) % Sodium (137-145) mmol/L Chloride (98-107) mmol/L BUN (7-17) mg/dL Creatinine (0.52-1.04) mg/dL Glucose (74-99) mg/dL POC Glucose (mg/dL) 171 H 241 H 133 H (70-110) mg/dL 09/07/22 09/07/22 09/07/22 Range/Units 11:33 12:19 12:19 RBC 3.46 L (3.80-5.40) m/uL Hgb 10.3 L (11.4-16.0) gm/dL Hct 32.0 L (34.0-46.0) % RDW 16.3 H (11.5-15.5) % Sodium 128 L (137-145) mmol/L Chloride 95 L (98-107) mmol/L BUN 46 H (7-17) mg/dL Creatinine 2.88 H (0.52-1.04) mg/dL Glucose 143 H (74-99) mg/dL POC Glucose (mg/dL) 159 H (70-110) mg/dL Assessment and Plan Assessment: Acute on chronic diastolic CHF exacerbation Acute hypoxic respiratory failure secondary to above Chronic kidney disease, unknown baseline with possible elements of acute kidney injury Elevated troponin could be secondary to kidney disease and heart failure Diabetes mellitus Hypertension Hyperlipidemia History of osteoarthritis Hypothyroidism History of sleep apnea on CPAP/BiPAP Monitor vital signs Monitor CBC Monitor CMP Continue telemetry monitoring Strict I's and O's daily weights Continue IV Lasix 60 g twice a day Continue aspirin, Lipitor Continue hydralazine, nebivolol, Procardia Continue iron supplementation Aggressive blood sugar levels, increase NovoLog mix 7030-40 units twice a day, continue sliding scale insulin Follow-up on nephrology recommendations Follow-up on cardiology recommendations follow-up on pulmonary recommendations Labs and medication were reviewed.. Continue same treatment. Continue with symptomatic treatment. Resume home medication. Monitor labs and vitals. DVT and GI prophylaxis. Further recommendations as per clinical course of the patient
[2022-09-07 20:22] LABS: Glucose,Whole Blood 157 mg/dL (70-110)
[2022-09-07] MEDS: ASPIRIN 81 MG PO SCH (20:49)
[2022-09-07] MEDS: MELATONIN 5 MG TABLET PO SCH (20:49)
[2022-09-08 06:15] LABS: Glucose,Whole Blood 114 mg/dL (70-110)
[2022-09-08] MEDS: INSULIN ASPART (NovoLOG) 100 UNIT/ML VIAL SQ SCH ×4 (06:22→20:45)
[2022-09-08] MEDS: LEVOTHYROXINE 75 MCG TAB PO SCH (06:31)
[2022-09-08] MEDS: PANTOPRAZOLE 40 MG TABLET PO SCH (06:31)
[2022-09-08] MEDS: FUROSEMIDE 10 MG/ML 10 ML VIAL IV SCH ×2 (08:23→20:44)
[2022-09-08] MEDS: HEPARIN SODIUM,PORCINE/PF 5,000 UNIT/0.5 ML SYRINGE SQ SCH ×3 (08:23→23:21)
[2022-09-08] MEDS: INSULN ASP PRT/INSULIN ASPART 100 UNIT/ML 10 ML VIAL SQ SCH ×2 (08:24→18:35)
[2022-09-08] MEDS: hydrALAZINE HCL 50 MG TAB PO SCH ×3 (08:25→20:46)
[2022-09-08] MEDS: ATORVASTATIN 20 MG TAB PO SCH (08:25)
[2022-09-08] MEDS: allopurinoL 100 MG TAB PO SCH ×2 (08:25→20:44)
[2022-09-08] MEDS: MULTIVITAMINS, THERA 1 EACH TAB PO SCH (08:25)
[2022-09-08] MEDS: CYANOCOBALAMIN 500 MCG TAB PO SCH (08:25)
[2022-09-08] MEDS: busPIRone HCl 10 MG TAB PO SCH ×2 (08:25→20:44)
[2022-09-08] MEDS: NEBIVOLOL 5 MG TAB PO SCH ×2 (08:25→20:45)
[2022-09-08] MEDS: DOCUSATE 100 MG CAP PO SCH ×2 (08:26→20:45)
[2022-09-08] MEDS: LACTULOSE 20 GM/30 ML CUP PO SCH ×3 (08:26→20:46)
[2022-09-08 08:48] LABS: African American GFR (CKD) 14 (>60 ml/min/1.73 sqM); Anion Gap 12 mmol/L; Blood Urea Nitrogen 52 mg/dL (7-17); Carbon Dioxide 21 mmol/L (22-30); Chloride 95 mmol/L (98-107); Glucose 145 mg/dL (74-99); Non-African American GFR(CKD) 12 (>60 ml/min/1.73 sqM); Potassium 4.7 mmol/L (3.5-5.1); Sodium 128 mmol/L (137-145)
--- NOTE | 2022-09-08 10:38 | P.PN ---
Subjective Patient is seen in follow-up for acute kidney injury on chronic kidney disease. Started on hemodialysis 09/05/2022. Has a right femoral dialysis catheter. Dyspnea improved. On 8 L nasal cannula. On IV Lasix. Remains oliguric. Hemodynamically stable. Vital signs are stable. General: No acute distress. HEENT: Head exam is unremarkable. On nasal cannula. LUNGS: No audible rhonchi or wheezes. HEART: Rate and Rhythm are regular. ABDOMEN: Nontender. EXTREMITITES: No edema. Objective - Vital Signs Vital signs: Vital Signs Temp 97.7 F 09/08/22 08:00 Pulse 62 09/08/22 08:00 Resp 18 09/08/22 08:00 BP 146/55 09/08/22 08:00 Pulse Ox 98 09/08/22 08:00 FiO2 Intake & Output 09/07/22 09/08/22 09/08/22 18:59 06:59 18:59 Intake Total 540 180 Output Total 300 Balance 540 -300 180 Weight 75 kg Intake: Oral 540 180 Output: Urine 300 Other: Voiding Method External Catheter External Catheter Toilet - Labs CBC & Chem 7: 09/07/22 12:19 09/08/22 07:49 Labs: Abnormal Lab Results - Last 24 Hours (Table) 09/07/22 09/07/22 09/07/22 Range/Units 11:33 12:19 12:19 RBC 3.46 L (3.80-5.40) m/uL Hgb 10.3 L (11.4-16.0) gm/dL Hct 32.0 L (34.0-46.0) % RDW 16.3 H (11.5-15.5) % Sodium 128 L (137-145) mmol/L Chloride 95 L (98-107) mmol/L Carbon Dioxide (22-30) mmol/L BUN 46 H (7-17) mg/dL Creatinine 2.88 H (0.52-1.04) mg/dL Glucose 143 H (74-99) mg/dL POC Glucose (mg/dL) 159 H (70-110) mg/dL 09/07/22 09/07/22 09/08/22 Range/Units 16:47 20:21 06:14 RBC (3.80-5.40) m/uL Hgb (11.4-16.0) gm/dL Hct (34.0-46.0) % RDW (11.5-15.5) % Sodium (137-145) mmol/L Chloride (98-107) mmol/L Carbon Dioxide (22-30) mmol/L BUN (7-17) mg/dL Creatinine (0.52-1.04) mg/dL Glucose (74-99) mg/dL POC Glucose (mg/dL) 154 H 157 H 114 H (70-110) mg/dL 09/08/22 Range/Units 07:49 RBC (3.80-5.40) m/uL Hgb (11.4-16.0) gm/dL Hct (34.0-46.0) % RDW (11.5-15.5) % Sodium 128 L (137-145) mmol/L Chloride 95 L (98-107) mmol/L Carbon Dioxide 21 L (22-30) mmol/L BUN 52 H (7-17) mg/dL Creatinine 3.33 H (0.52-1.04) mg/dL Glucose 145 H (74-99) mg/dL POC Glucose (mg/dL) (70-110) mg/dL Assessment and Plan Plan: Assessment: 1. Acute kidney injury secondary to ATN secondary to cardiorenal syndrome. Also concern for progression of underlying chronic kidney disease stage IV. Patient was following with a vb developer in [place] and recently moved to [place]. No hydronephrosis noted on kidney ultrasound. 1+ protein on UA. Patient has underlying diabetic kidney disease. Started on hemodialysis 09/05/2022. Creatinine 2.87 on admission and up to 3.56 this admission. 2. Volume overload. Improving to diuresis and ultrafiltration. 3. Acute on chronic diastolic CHF and moderate tricuspid regurgitation. 4. Diabetes mellitus. 5. Anemia of chronic kidney disease. Iron deficiency noted. s/p IV iron. 6. Metabolic acidosis secondary to chronic kidney disease. 7. Hypertension with chronic kidney disease. Stable. 8. Chronic kidney disease mineral bone disease. Phosphorous 4.6, vitamin D 35 and PTH 79 this admission. 9. Hyponatremia secondary to acute kidney injury. Hypervolemic. Plan: Hemodialysis today. Challenge UF. Repeat chest x-ray tomorrow morning. Maintain IV Lasix for now. Add by mouth bicarb. Maintain low salt diet and fluid restriction. Continue to monitor renal function and urine output. Monitor for renal recovery. Outpatient dialysis to be set up by case management.
--- NOTE | 2022-09-08 11:14 | P.PN ---
Subjective Progress Note Date: 09/08/22 87-year-old female who recently moved back to [place] from [place]. She presented to the emergency department on August 31, complaining of shortness of breath. The patient is currently seen today in room 366. Her 3 daughters are present. She apparently been having shortness breath for a number of days, and decided to come into the hospital to be evaluated. She does not have a family doctor in this area, and is hoping to establish herself with Dr. Chanell Turk. She does have a remote history of tobacco use. She smoked only socially. The patient denies a history of chronic lung disease. She appears to have diastolic CHF. Her chest x-ray was consistent with fluid overload, and her N-terminal proBNP was elevated. The patient's currently on 6 L of oxygen. She has been seen by cardiology. In addition to diastolic CHF, she has a history of hyperlipidemia, diabetes, hypothyroidism, insomnia, gastroesophageal reflux disease, and gout. Laboratory data from September 01 showed white count of 7.9, hemoglobin 9.3, hematocrit 29.1, and a normal platelet count. Sodium 136, potassium 3.5, chlorides 102, CO2 22, BUN 81, and creatinine 2.86. The patient's troponins were 0.156 and 0.112. N-terminal proBNP was 7580. Chest x- ray was consistent with fluid overload. Dopplers of the lower semis were negative. Pulmonary perfusion lung scan, was negative. Progress note dated 09/03/2022. The patient is seen today in room 366. She was seen in consultation yesterday. Please see the note above. She remains on saline at 10 mL an hour, and also oxygen is 7 L nasal cannula. She was admitted with a diagnosis of CHF. She has diastolic CHF. Currently, she seems to be doing about the same, no better, but no worse. No new labs today other than a blood glucose of 226. A repeat chest x-ray was ordered for tomorrow. Progress note dated 09/04/2022. The patient is seen today in room 366. Currently, she is on 7 L of oxygen. She's not receiving any IV fluids. Chest x-rays consistent with fluid overload. The patient does feel fatigued, and a short of breath on exertion. She was adm itted with a diagnosis of diastolic CHF. White count 7.8, hemoglobin 9.9, hematocrit 31.2, and platelet count is normal. Sodium 131, potassium 4.1, chlorides 100, CO2 20, BUN 89, and creatinine 3.33. Progress note dated 09/05/2022. 87-year-old female seen today in room 366. She was admitted with hypoxemic respiratory failure, secondary to fluid overload. Unfortunately, her renal function has worsened, and the patient will likely need hemodialysis. I suspect a hemodialysis catheter will be placed today. Her chest x-ray shows fluid overload. She does have diastolic CHF. She's currently on 7 L of oxygen. That has not really improved at all. No new labs today other glucose of 225. Her creatinine is up to 3.33. Her BUN from yesterday was 89. Progress note dated 09/06/2022. 87-year-old female seen today in room 366. The patient had a hemodialysis catheter placed yesterday. She had hemodialysis, and 2 L of fluid was removed. She's currently on 9 L high flow nasal cannula, and is receiving a Lasix drip at 10 mg an hour. She's feeling a bit better today than she did yesterday, and clinically, she looks a bit better. Lab data today includes a glucose of 129. Progress note dated August. 87-year-old female seen today in room 366. The patient has had 2 sessions of hemodialysis. During both sessions, 2 L of fluid was removed. The patient is feeling better. She has been weaned down to 8 liter high flow oxygen. Laboratory data today includes only a glucose of 133. The patient is feeling much improved. Her breathing is much better. She will have dialysis again tomorrow. On today's evaluation of 09/08/2022, the patient is being seen for a follow-up. The patient remains on oxygen at 8 L nasal cannula. The patient is still having some shortness of breath. Urine output is minimal and the patient is on Lasix. The patient is going to undergo her third session of hemodialysis today. Her sodium level is at 128, BUN is at 52 with a creatinine of 3.3 and the potassium levels at 4.7. She also has obstructive sleep apnea and the patient is utilizing a BiPAP at home at a pressure of 15/11 cm of water. This was not used because of her high oxygen requirements. Her chest x-ray was consistent with CHF/fluid overload with bilateral pleural effusions. There is also evidence of lymph node calcification involving the hilar areas. Had echocardiogram was showing a preserved LV function, no significant valvular abnormalities noted. Objective - Vital Signs Vital signs: Vital Signs Temp 97.7 F 09/08/22 08:00 Pulse 62 09/08/22 08:00 Resp 18 09/08/22 08:00 BP 146/55 09/08/22 08:00 Pulse Ox 98 09/08/22 08:00 FiO2 Intake & Output 09/07/22 09/08/22 09/08/22 18:59 06:59 18:59 Intake Total 540 180 Output Total 300 Balance 540 -300 180 Weight 75 kg Intake: Oral 540 180 Output: Urine 300 Other: Voiding Method External Catheter External Catheter Toilet - Exam No acute distress, oriented 3. Currently the patient's on 8 L. Saturation is 95 %. HEENT examination is grossly unremarkable. Neck supple. Full range of motion. No adenopathy thyromegaly or neck vein distention. Cardiovascular examination reveals regular rhythm rate. S1-S2 normal. No S3 or S4. Heart sounds are distant. Heart rate 81 bpm. A soft systolic murmur is noted. Lungs reveal scattered rhonchi and crackles. No wheezes. Breath sounds equal bilaterally. Abdomen soft bowel sounds are heard. No masses or tenderness. Extremities are intact. No cyanosis clubbing or edema. Skin is without rash or lesion. Neurologic examination is brief but nonfocal. - Labs CBC & Chem 7: 09/07/22 12:19 09/08/22 07:49 Labs: Abnormal Lab Results - Last 24 Hours (Table) 09/07/22 09/07/22 09/07/22 Range/Units 11:33 12:19 12:19 RBC 3.46 L (3.80-5.40) m/uL Hgb 10.3 L (11.4-16.0) gm/dL Hct 32.0 L (34.0-46.0) % RDW 16.3 H (11.5-15.5) % Sodium 128 L (137-145) mmol/L Chloride 95 L (98-107) mmol/L Carbon Dioxide (22-30) mmol/L BUN 46 H (7-17) mg/dL Creatinine 2.88 H (0.52-1.04) mg/dL Glucose 143 H (74-99) mg/dL POC Glucose (mg/dL) 159 H (70-110) mg/dL 09/07/22 09/07/22 09/08/22 Range/Units 16:47 20:21 06:14 RBC (3.80-5.40) m/uL Hgb (11.4-16.0) gm/dL Hct (34.0-46.0) % RDW (11.5-15.5) % Sodium (137-145) mmol/L Chloride (98-107) mmol/L Carbon Dioxide (22-30) mmol/L BUN (7-17) mg/dL Creatinine (0.52-1.04) mg/dL Glucose (74-99) mg/dL POC Glucose (mg/dL) 154 H 157 H 114 H (70-110) mg/dL 09/08/22 Range/Units 07:49 RBC (3.80-5.40) m/uL Hgb (11.4-16.0) gm/dL Hct (34.0-46.0) % RDW (11.5-15.5) % Sodium 128 L (137-145) mmol/L Chloride 95 L (98-107) mmol/L Carbon Dioxide 21 L (22-30) mmol/L BUN 52 H (7-17) mg/dL Creatinine 3.33 H (0.52-1.04) mg/dL Glucose 145 H (74-99) mg/dL POC Glucose (mg/dL) (70-110) mg/dL Assessment and Plan Plan: Acute hypoxemic respiratory failure, secondary to acute on chronic diastolic CHF. The patient also has signs of fluid overload with bilateral pleural effusions. Chest x-ray also shows hilar lymph node calcification bilaterally, rule out underlying chronic granulomatous infection/previous sarcoidosis. Obstructive sleep apnea maintained on BiPAP therapy at a pressure of 15/11 cm of water History of diabetes mellitus. Acute on chronic kidney disease, with initiation of hemodialysis on 09/05/2022. History of hyperlipidemia. History of hypothyroidism. History of hypertension. History of gastroesophageal reflux disease. History of gout. Remote history of tobacco use. ALEJA Plan: Hemodialysis today Monitor oxygenation Allow the patient utilizes home BiPAP unit at pressure 15/11 and she has a nasal mask. We are going to feed and oxygen into her BiPAP at 5 L nasal cannula. We'll continue to follow.
[2022-09-08 11:50] LABS: Glucose,Whole Blood 241 mg/dL (70-110)
[2022-09-08] MEDS: SODIUM BICARBONATE TAB 650 MG TAB PO SCH ×2 (11:54→20:44)
--- NOTE | 2022-09-08 13:37 | P.PN ---
Subjective Progress Note Date: 09/08/22 This is a pleasant 87 years old female with past medical history of chronic kidney disease, chronic heart failure, hypertension, hyperlipidemia, hypothyroidism, diabetes mellitus, history of GERD. Patient was recently moved from [place] back to [place]. Patient states she came because of dyspnea and leg swelling for 1 month, last night she flew from [place] back to [place], Patient uses CPAP machine at night. She's been constipated other than that she denies any specific GI urinary or neurological symptoms She quit smoking 40 years ago and drinking alcohol 20 years ago. No illicit drugs. She's been complaining of from right calf pain and ultrasound was negative for DVT. She is not on oxygen at home She moved to [place] with her daughters On admission she is afebrile, mildly tachypneic, hypertensive and she was saturating 91% on 4 L oxygen via nasal cannula improved to 95% She has mild leukocytosis of 11.4, hemoglobin 10.5. Risks of CBC is unremarkable. D-dimer 2.3. BMP showing a creatinine of 2.8, unknown baseline Glucose 126. Liver enzymes unremarkable Elevated troponin 0.15. ProBNP is elevated 7580. EKG showing normal sinus rhythm with no significant ST-T changes and QTC 410. Chest x-ray: CHF Venous Doppler showed no evidence of deep venous thrombosis Ventilation perfusion this is ordered and is pending. 09/01/2022 Patient clinically the same she still fluid overload that she still feels dyspneic with bilateral leg swelling she made ordered tomorrow on urine on IV Lasix 40 mg twice daily, partly because of her advanced kidney disease, pulse the it is a stage IV chronic kidney disease, renal ultrasound showing no hydronephrosis. Bladder scan is still pending. Urine analysis is negative for infection. Cardiology evaluated the patient and recommended to continue with the same Echocardiogram showed ejection fraction 72% with moderate mitral regurgitation. Continue with home dose of aspirin 81 mg going to increase Lasix to 60 mg twice daily to increase urine output and also put the patient on fluids resection 1000 per day 09/02/2022 Patient remains hypoxic and improving slowly and gradually. Her dyspnea also is slightly better. She's on 6 L oxygen via nasal cannula She's have chronic kidney disease and increase her IV Lasix to 60 mg twice daily, she has better urine output. Patient also on fluid restriction. Continue dose of aspirin 09/03 patient seen and examined. States she feels better compared to yesterday. Currently on 5 L of oxygen Interval change 09/05/2022 Patient is seen and evaluated in room at bedside; discussed with nursing staff; no specific complaints reported Patient remains on 7 L of oxygen. -- Chest x-rays consistent with fluid overload. Echocardiogram is reported as normal left ventricular systolic function White count 7.8, hemoglobin 9.9, hematocrit 31.2, and platelet count is normal. Sodium 131, potassium 4.1, chlorides 100, CO2 20, BUN 89, and creatinine 3.33. Cardiology on board and recommending to continue with IV Lasix; continue to monitor strict MARIA DE JESUS's, daily weights 09/06/2022 Patient is seen and evaluated in room undergoing dialysis; family is at bedside Patient is status post temporary dialysis catheter placement and underwent hemodialysis yesterday and able to remove 2 L; patient reports improvement in breathing Vital signs are reviewed and remained stable; no cold for hemodialysis to remove any of the 2 L if possible; patient remains on IV Lasix infusion; we will plan to continue to monitor strict MARIA DE JESUS's and daily weights; avoid nephrotoxins and hypotension -- Nephrology recommending to discontinue Lasix infusion and transitioned to Lasix 60 mg IV every 12 hours 09/07/2022 Patient is seen and evaluated resting comfortably in bed; patient is status post right femoral dialysis catheter placement with first hemodialysis session on 09/05/2022; patient had another dialysis session completed yesterday with removal of 2 L fluid. No dialysis planned till tomorrow; patient has been transitioned from IV Lasix infusion to injection; volume overload is improving with diuresis and ultrafiltration; patient remains on low salt and fluid restricted diet with close monitoring of renal function and urine output; patient will need to be set up for outpatient dialysis once deemed necessary by nephrology 09/08. Patient seen and examined. Continues to be on 8 liters of oxygen. Patient is scheduled for dialysis today REVIEW OF SYSTEMS: CONSTITUTIONAL: No fever, no malaise,. CARDIOVASCULAR: No chest pain, no palpitations, no syncope. PULMONARY: Gets short of breath on exertion GASTROINTESTINAL: No diarrhea, no nausea, no vomiting, no abdominal pain. NEUROLOGICAL: No headaches, no weakness, PHYSICAL EXAMINATION: GENERAL: The patient is alert and oriented x3, not in any acute distress. Well developed, well nourished. HEENT: Pupils are round and equally reacting to light. EOMI. No scleral icterus. No conjunctival pallor. Normocephalic, atraumatic. No pharyngeal erythema. No thyromegaly. CARDIOVASCULAR: S1 and S2 present. No murmurs, rubs, or gallops. PULMONARY: Chest is clear to auscultation, no wheezing or crackles. ABDOMEN: Soft, nontender, nondistended, normoactive bowel sounds. No palpable organomegaly. MUSCULOSKELETAL: No joint swelling or deformity. EXTREMITIES: No cyanosis, clubbing, or pedal edema. NEUROLOGICAL: Gross neurological examination did not reveal any focal deficits. SKIN: No rashes. Assessment and plan Acute on chronic diastolic CHF exacerbation Acute hypoxic respiratory failure secondary to above Chronic kidney disease, unknown baseline with possible elements of acute kidney injury Elevated troponin could be secondary to kidney disease and heart failure Diabetes mellitus Hypertension Hyperlipidemia History of osteoarthritis Hypothyroidism History of sleep apnea on CPAP/BiPAP Monitor vital signs Monitor CBC Monitor CMP Continue telemetry monitoring Strict I's and O's daily weights Continue aspirin, Lipitor Continue hydralazine, nebivolol, Procardia Continue iron supplementation Monitor blood sugar levels, continue current insulin regimen Continue dialysis per nephrology Follow-up on cardiology recommendations follow-up on pulmonary recommendations Labs and medication were reviewed.. Continue same treatment. Continue with symptomatic treatment. Resume home medication. Monitor labs and vitals. DVT and GI prophylaxis. Further recommendations as per clinical course of the patient Objective - Vital Signs Vital signs: Vital Signs Temp 97.7 F 09/08/22 08:00 Pulse 62 09/08/22 08:00 Resp 18 09/08/22 08:00 BP 146/55 09/08/22 08:00 Pulse Ox 98 09/08/22 08:00 FiO2 Intake & Output 09/07/22 09/08/22 09/08/22 18:59 06:59 18:59 Intake Total 540 180 Output Total 300 Balance 540 -300 180 Weight 75 kg Intake: Oral 540 180 Output: Urine 300 Other: Voiding Method External Catheter External Catheter Toilet - Labs CBC & Chem 7: 09/07/22 12:19 09/08/22 07:49 Labs: Abnormal Lab Results - Last 24 Hours (Table) 09/07/22 09/07/22 09/07/22 Range/Units 11:33 12:19 12:19 RBC 3.46 L (3.80-5.40) m/uL Hgb 10.3 L (11.4-16.0) gm/dL Hct 32.0 L (34.0-46.0) % RDW 16.3 H (11.5-15.5) % Sodium 128 L (137-145) mmol/L Chloride 95 L (98-107) mmol/L Carbon Dioxide (22-30) mmol/L BUN 46 H (7-17) mg/dL Creatinine 2.88 H (0.52-1.04) mg/dL Glucose 143 H (74-99) mg/dL POC Glucose (mg/dL) 159 H (70-110) mg/dL 09/07/22 09/07/22 09/08/22 Range/Units 16:47 20:21 06:14 RBC (3.80-5.40) m/uL Hgb (11.4-16.0) gm/dL Hct (34.0-46.0) % RDW (11.5-15.5) % Sodium (137-145) mmol/L Chloride (98-107) mmol/L Carbon Dioxide (22-30) mmol/L BUN (7-17) mg/dL Creatinine (0.52-1.04) mg/dL Glucose (74-99) mg/dL POC Glucose (mg/dL) 154 H 157 H 114 H (70-110) mg/dL 09/08/22 Range/Units 07:49 RBC (3.80-5.40) m/uL Hgb (11.4-16.0) gm/dL Hct (34.0-46.0) % RDW (11.5-15.5) % Sodium 128 L (137-145) mmol/L Chloride 95 L (98-107) mmol/L Carbon Dioxide 21 L (22-30) mmol/L BUN 52 H (7-17) mg/dL Creatinine 3.33 H (0.52-1.04) mg/dL Glucose 145 H (74-99) mg/dL POC Glucose (mg/dL) (70-110) mg/dL
--- NOTE | 2022-09-08 13:47 | P.PN ---
Subjective HISTORY OF PRESENT ILLNESS: The patient is an 87-year-old female patient with a past medical history significant for heart failure with preserved ejection fraction as well as chronic kidney disease and hypertension and dyslipidemia was admitted to the hospital with heart failure exacerbation. 09/04/2022 The patient was seen and evaluated this morning. She remains failure. She remains hypoxic requiring high flow oxygen at least at 7 L. She has been urinating significantly. The kidney function and the rest of the blood work from the morning still pending at this point. Currently she is on Lasix IV. Nephrology continues to be on the case. The echo showed normal LV systolic function. September [id number] She was seen and evaluated this morning. She continues to be hypoxic on 7 L of oxygen to maintain saturation above 90%. Hemodynamically she is stable patient has been diuresing well overnight. She still short of breath even getting a normal conversation and she is asking about hospice. I am going to address that with the internal medicine team. Meanwhile continue the current dose of Lasix IV. Nephrology service as on the case. September 062022 The patient was seen this morning. She underwent dialysis yesterday. Overall she is feeling better today. She continues to be on Lasix. She continues to be hypoxic requiring oxygen at 8 L. She is going to undergo another dialysis later on today. No pain in the chest. She continues to have shortness of breath which has somewhat improved after dialysis and no lower extremity edema noted. September 072022 The patient was seen and evaluated this morning. She is feeling better. The shortness of breath is improved. She continues to be hypoxic requiring my liters of oxygen. She underwent dialysis twice so far and she is going to have another one tomorrow. No pain in the chest. She has been maintaining normal sinus mechanism. No blood work from this morning as of yet. She continues to be on Lasix IV and she has been diuresing extremely well. 09/08/2022 Patient examined this morning at the bedside. Patient's daughter is present. Patient denies chest pain or pressure. She reports improvement in her shortness of breath. She states she is scheduled to receive hemodialysis today. She remains on IV Lasix. Echocardiogram reveals ejection fraction 55-60%. Patient remains on 8 L nasal cannula. PHYSICAL EXAM: VITAL SIGNS: Reviewed. GENERAL: Well-developed in no acute distress. NECK: Supple. No JVD or thyromegaly LUNGS: Respirations even and unlabored. Lungs essentially clear to auscultation bilaterally. HEART: Regular rate and rhythm. S1 and S2 heard. EXTREMITIES: Normal range of motion. No clubbing or cyanosis. Peripheral pulses intact. No lower extremity edema ASSESSMENT: Shortness of breath Acute hypoxic respiratory failure Acute on chronic heart failure with preserved ejection fraction Chronic kidney disease, on hemodialysis Hypertension Hyperlipidemia PLAN: Continue current cardiac medications Continue IV Lasix 60 mg every 12 hours Daily weights, accurate I&O, and monitor kidney function Hemodialysis per nephrology Further recommendations pending patient's course Nurse practitioner note has been reviewed by physician. Signing provider agrees with the documented findings, assessment, and plan of care. Objective - Vital Signs Vital signs: Vital Signs Temp 97.5 F L 09/08/22 12:15 Pulse 61 09/08/22 12:15 Resp 18 09/08/22 12:15 BP 143/64 09/08/22 12:15 Pulse Ox 93 L 09/08/22 12:15 FiO2 Intake & Output 09/07/22 09/08/22 09/08/22 18:59 06:59 18:59 Intake Total 540 180 Output Total 300 Balance 540 -300 180 Weight 75 kg Intake: Oral 540 180 Output: Urine 300 Other: Voiding Method External Catheter External Catheter Toilet # Bowel Movements 1 - Labs CBC & Chem 7: 09/07/22 12:19 09/08/22 07:49 Labs: Abnormal Lab Results - Last 24 Hours (Table) 09/07/22 09/07/22 09/08/22 Range/Units 16:47 20:21 06:14 Sodium (137-145) mmol/L Chloride (98-107) mmol/L Carbon Dioxide (22-30) mmol/L BUN (7-17) mg/dL Creatinine (0.52-1.04) mg/dL Glucose (74-99) mg/dL POC Glucose (mg/dL) 154 H 157 H 114 H (70-110) mg/dL 09/08/22 09/08/22 Range/Units 07:49 11:48 Sodium 128 L (137-145) mmol/L Chloride 95 L (98-107) mmol/L Carbon Dioxide 21 L (22-30) mmol/L BUN 52 H (7-17) mg/dL Creatinine 3.33 H (0.52-1.04) mg/dL Glucose 145 H (74-99) mg/dL POC Glucose (mg/dL) 241 H (70-110) mg/dL
[2022-09-08 16:20] LABS: Glucose,Whole Blood 240 mg/dL (70-110)
[2022-09-08] MEDS ORDERED: BENZOCAINE/MENTHOL LOZENG 1 EACH LOZENGE MUCOUS MEM PRN (18:26)
[2022-09-08 20:15] LABS: Glucose,Whole Blood 108 mg/dL (70-110)
[2022-09-08] MEDS: MELATONIN 5 MG TABLET PO SCH (20:44)
[2022-09-08] MEDS: ASPIRIN 81 MG PO SCH (20:44)
[2022-09-09 06:21] LABS: Glucose,Whole Blood 163 mg/dL (70-110)
[2022-09-09] MEDS: INSULIN ASPART (NovoLOG) 100 UNIT/ML VIAL SQ SCH ×4 (06:34→21:29)
[2022-09-09] MEDS: LEVOTHYROXINE 75 MCG TAB PO SCH (06:34)
[2022-09-09] MEDS: PANTOPRAZOLE 40 MG TABLET PO SCH (06:37)
[2022-09-09] MEDS: INSULN ASP PRT/INSULIN ASPART 100 UNIT/ML 10 ML VIAL SQ SCH ×2 (07:40→17:02)
[2022-09-09] MEDS: HEPARIN SODIUM,PORCINE/PF 5,000 UNIT/0.5 ML SYRINGE SQ SCH ×2 (07:43→16:06)
[2022-09-09] MEDS: LACTULOSE 20 GM/30 ML CUP PO SCH ×4 (07:47→21:32)
[2022-09-09] MEDS: FUROSEMIDE 10 MG/ML 10 ML VIAL IV SCH (07:51)
[2022-09-09] MEDS: allopurinoL 100 MG TAB PO SCH ×2 (07:51→21:39)
[2022-09-09] MEDS: hydrALAZINE HCL 50 MG TAB PO SCH ×3 (07:51→21:39)
[2022-09-09] MEDS: ATORVASTATIN 20 MG TAB PO SCH (07:51)
[2022-09-09] MEDS: MULTIVITAMINS, THERA 1 EACH TAB PO SCH (07:51)
[2022-09-09] MEDS: NEBIVOLOL 5 MG TAB PO SCH ×2 (07:51→21:38)
[2022-09-09] MEDS: CYANOCOBALAMIN 500 MCG TAB PO SCH (07:51)
[2022-09-09] MEDS: SODIUM BICARBONATE TAB 650 MG TAB PO SCH ×2 (07:51→21:39)
[2022-09-09] MEDS: busPIRone HCl 10 MG TAB PO SCH ×2 (07:51→21:39)
[2022-09-09] MEDS: DOCUSATE 100 MG CAP PO SCH ×2 (07:51→21:39)
[2022-09-09 10:06] LABS: Anisocytosis Slight; Basophils # (A) 0.1 k/uL (0-0.2); Basophils % (A) 1 %; Eosinophils # (A) 0.3 k/uL (0-0.7); Eosinophils % (A) 3 %; HCT 30.6 % (34.0-46.0); HGB 9.4 gm/dL (11.4-16.0); Hypochromasia Slight; Lymphocytes # (A) 1.8 k/uL (1.0-4.8); Lymphocytes % (A) 22 %; MCH 28.5 pg (25.0-35.0); MCHC 30.6 g/dL (31.0-37.0); MCV 93.1 fL (80.0-100.0); Mean Platelet Volume 8.6; Monocytes # (A) 0.7 k/uL (0-1.0); Monocytes % (A) 8 %; Neutrophils % (A) 63 %; Platelet Count 201 k/uL (150-450); RBC 3.29 m/uL (3.80-5.40); RDW 16.2 % (11.5-15.5)
--- NOTE | 2022-09-09 10:11 | FL ---
EXAMINATION TYPE: FL sniff test without CXR DATE OF EXAM: 09/09/2022 9:33 AM CLINICAL INDICATION:Female, 87 years old with history of sob; COMPARISON: Chest radiograph from 09/07/2022 TECHNIQUE: With the patient standing, fluoroscopy of the right and left hemidiaphragm was observed du ring normal resting respiration as well as deep inspiration, deep expiration, and "sniffing." Fluoroscopic time: 14 seconds Fluoroscopic images: 0 Radiographs taken: 4 DAP: 169.74 mGym2 FINDINGS: Manager Business film demonstrates: no focal consolidation, pneumothorax, or pleural effusions. The cardiomedias tinal silhouette is within normal limits. There is elevation of the left hemidiaphragm. This is stab le and compared to previous chest radiograph. The left diaphragm contracts during inspiration. Both hemidiaphragms move together. Normal excursion is demonstrated of the left hemidiaphragm. The right diaphragm contracts during inspiration. Both hemidiaphragms move together. Normal excursion is demonstrated of the right hemidiaphragm. IMPRESSION: Normal sniff test.
[2022-09-09 10:45] LABS: ALT 52 U/L (4-34); AST 56 U/L (14-36); African American GFR (CKD) 16 (>60 ml/min/1.73 sqM); Albumin 3.4 g/dL (3.5-5.0); Alkaline Phosphatase 115 U/L (38-126); Anion Gap 11 mmol/L; Blood Urea Nitrogen 45 mg/dL (7-17); Calcium 8.5 mg/dL (8.4-10.2); Carbon Dioxide 22 mmol/L (22-30); Chloride 96 mmol/L (98-107); Glucose 130 mg/dL (74-99); Non-African American GFR(CKD) 14 (>60 ml/min/1.73 sqM); Potassium 4.1 mmol/L (3.5-5.1); Sodium 129 mmol/L (137-145); Total Bilirubin 0.4 mg/dL (0.2-1.3); Total Protein 5.8 g/dL (6.3-8.2)
--- NOTE | 2022-09-09 10:49 | P.PN ---
Subjective Patient is seen in follow-up for acute kidney injury on chronic kidney disease. Started on hemodialysis 09/05/2022. Has a right femoral dialysis catheter. Scheduled for permacath placement today. Dyspnea improved. On 3 L nasal cannula. On IV Lasix. Urine output documented as 500 mL in the last 24 hours. Remains oliguric. Hemodynamically stable. Vital signs are stable. General: No acute distress. HEENT: Head exam is unremarkable. On nasal cannula. LUNGS: No audible rhonchi or wheezes. HEART: Rate and Rhythm are regular. ABDOMEN: Nontender. EXTREMITITES: No edema. Objective - Vital Signs Vital signs: Vital Signs Temp 98.6 F 09/09/22 08:00 Pulse 71 09/09/22 08:00 Resp 18 09/09/22 08:00 BP 131/78 09/09/22 08:00 Pulse Ox 96 09/09/22 10:05 FiO2 Intake & Output 09/08/22 09/09/22 09/09/22 18:59 06:59 18:59 Intake Total 360 1040 Output Total 4500 Balance 360 -3460 Weight 72.5 kg Intake: Oral 360 540 Hemodialysis 500 Output: Urine 500 Hemodialysis 4000 Other: Voiding Method Toilet Toilet Toilet # Bowel Movements 1 - Labs CBC & Chem 7: 09/09/22 09:07 09/08/22 07:49 Labs: Abnormal Lab Results - Last 24 Hours (Table) 09/08/22 09/08/22 09/08/22 Range/Units 11:48 11:48 16:19 RBC (3.80-5.40) m/uL Hgb (11.4-16.0) gm/dL Hct (34.0-46.0) % MCHC (31.0-37.0) g/dL RDW (11.5-15.5) % POC Glucose (mg/dL) 241 H 240 H (70-110) mg/dL Hep B Core Total Ab Reactive A (Non-Reactive) 09/09/22 09/09/22 Range/Units 06:20 09:07 RBC 3.29 L (3.80-5.40) m/uL Hgb 9.4 L (11.4-16.0) gm/dL Hct 30.6 L (34.0-46.0) % MCHC 30.6 L (31.0-37.0) g/dL RDW 16.2 H (11.5-15.5) % POC Glucose (mg/dL) 163 H (70-110) mg/dL Hep B Core Total Ab (Non-Reactive) Assessment and Plan Plan: Assessment: 1. Acute kidney injury secondary to ATN secondary to cardiorenal syndrome. Also concern for progression of underlying chronic kidney disease stage IV. Patient was following with a box toe buffer in [place] and recently moved to [place]. No hydronephrosis noted on kidney ultrasound. 1+ protein on UA. Patient has underlying diabetic kidney disease. Started on hemodialysis 09/05/2022. Creatinine 2.87 on admission and up to 3.56 this admission. 2. Volume overload. Improving to diuresis and ultrafiltration. 3. Acute on chronic diastolic CHF and moderate tricuspid regurgitation. 4. Diabetes mellitus. 5. Anemia of chronic kidney disease. Iron deficiency noted. s/p IV iron. 6. Metabolic acidosis secondary to chronic kidney disease. Expect improvement postdialysis. On oral bicarb. 7. Hypertension with chronic kidney disease. Stable. 8. Chronic kidney disease mineral bone disease. Phosphorous 4.1, vitamin D 35 and PTH 79 this admission. 9. Hyponatremia secondary to acute kidney injury. Hypervolemic. 10. 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 This was confirmed with lab. Patient needs to see GI outpatient. Plan: Hemodialysis today. Challenge UF. Check chest x-ray. Outpatient dialysis being set up. She will be maintained on a Thursday schedule. Change IV Lasix to oral torsemide. Maintain low salt diet and fluid restriction. Continue to monitor renal function and urine output. Monitor for renal recovery. Outpatient dialysis to be set up by case management.
[2022-09-09 11:51] LABS: Glucose,Whole Blood 183 mg/dL (70-110)
--- NOTE | 2022-09-09 12:52 | XR ---
EXAMINATION TYPE: XR chest 1V DATE OF EXAM: 09/09/2022 COMPARISON: 09/17/2022 HISTORY: Shortness of breath FINDINGS: There are bilateral pleural effusions with cardiomegaly and bibasilar infiltrate. There is a diffuse interstitial pattern. Bilateral AC joint arthropathy with diffuse osteopenia. Atherosclerotic changes of the aorta. Hypertr ophic and degenerative changes of the spine. IMPRESSION: 1. Improving interstitial congestion with persistent changes of CHF and bilateral filtrate\pleural ef fusion.
--- NOTE | 2022-09-09 13:21 | P.PN ---
Subjective Progress Note Date: 09/09/22 87-year-old female who recently moved back to [place] from [place]. She presented to the emergency department on August 31, complaining of shortness of breath. The patient is currently seen today in room 366. Her 3 daughters are present. She apparently been having shortness breath for a number of days, and decided to come into the hospital to be evaluated. She does not have a family doctor in this area, and is hoping to establish herself with Dr. Chanell Turk. She does have a remote history of tobacco use. She smoked only socially. The patient denies a history of chronic lung disease. She appears to have diastolic CHF. Her chest x-ray was consistent with fluid overload, and her N-terminal proBNP was elevated. The patient's currently on 6 L of oxygen. She has been seen by cardiology. In addition to diastolic CHF, she has a history of hyperlipidemia, diabetes, hypothyroidism, insomnia, gastroesophageal reflux disease, and gout. Laboratory data from September 01 showed white count of 7.9, hemoglobin 9.3, hematocrit 29.1, and a normal platelet count. Sodium 136, potassium 3.5, chlorides 102, CO2 22, BUN 81, and creatinine 2.86. The patient's troponins were 0.156 and 0.112. N-terminal proBNP was 7580. Chest x- ray was consistent with fluid overload. Dopplers of the lower semis were negative. Pulmonary perfusion lung scan, was negative. Progress note dated 09/03/2022. The patient is seen today in room 366. She was seen in consultation yesterday. Please see the note above. She remains on saline at 10 mL an hour, and also oxygen is 7 L nasal cannula. She was admitted with a diagnosis of CHF. She has diastolic CHF. Currently, she seems to be doing about the same, no better, but no worse. No new labs today other than a blood glucose of 226. A repeat chest x-ray was ordered for tomorrow. Progress note dated 09/04/2022. The patient is seen today in room 366. Currently, she is on 7 L of oxygen. She's not receiving any IV fluids. Chest x-rays consistent with fluid overload. The patient does feel fatigued, and a short of breath on exertion. She was adm itted with a diagnosis of diastolic CHF. White count 7.8, hemoglobin 9.9, hematocrit 31.2, and platelet count is normal. Sodium 131, potassium 4.1, chlorides 100, CO2 20, BUN 89, and creatinine 3.33. Progress note dated 09/05/2022. 87-year-old female seen today in room 366. She was admitted with hypoxemic respiratory failure, secondary to fluid overload. Unfortunately, her renal function has worsened, and the patient will likely need hemodialysis. I suspect a hemodialysis catheter will be placed today. Her chest x-ray shows fluid overload. She does have diastolic CHF. She's currently on 7 L of oxygen. That has not really improved at all. No new labs today other glucose of 225. Her creatinine is up to 3.33. Her BUN from yesterday was 89. Progress note dated 09/06/2022. 87-year-old female seen today in room 366. The patient had a hemodialysis catheter placed yesterday. She had hemodialysis, and 2 L of fluid was removed. She's currently on 9 L high flow nasal cannula, and is receiving a Lasix drip at 10 mg an hour. She's feeling a bit better today than she did yesterday, and clinically, she looks a bit better. Lab data today includes a glucose of 129. Progress note dated August. 87-year-old female seen today in room 366. The patient has had 2 sessions of hemodialysis. During both sessions, 2 L of fluid was removed. The patient is feeling better. She has been weaned down to 8 liter high flow oxygen. Laboratory data today includes only a glucose of 133. The patient is feeling much improved. Her breathing is much better. She will have dialysis again tomorrow. On today's evaluation of 09/08/2022, the patient is being seen for a follow-up. The patient remains on oxygen at 8 L nasal cannula. The patient is still having some shortness of breath. Urine output is minimal and the patient is on Lasix. The patient is going to undergo her third session of hemodialysis today. Her sodium level is at 128, BUN is at 52 with a creatinine of 3.3 and the potassium levels at 4.7. She also has obstructive sleep apnea and the patient is utilizing a BiPAP at home at a pressure of 15/11 cm of water. This was not used because of her high oxygen requirements. Her chest x-ray was consistent with CHF/fluid overload with bilateral pleural effusions. There is also evidence of lymph node calcification involving the hilar areas. Had echocardiogram was showing a preserved LV function, no significant valvular abnormalities noted. On 09/09/2022, the patient has feeling weak and lethargic. Nevertheless, reduction she is improved and the patient is currently on 3 L of oxygen by nasal cannula. She has brought her BiPAP machine from home at a pressure of 15/11 cm of water and would also going to feed and oxygen via an adapter that was attach ed her BiPAP machine. She underwent her first session of hemodialysis yesterday with 2 L of ultrafiltration. She is less short of breath. BUN is at 45 with a creatinine of 2.9 and a sodium level is at 129. White cell count is at 8 with a hemoglobin of 9.4. Repeat chest x-ray from today shows improvement in interstitial congestion with some changes consistent with CHF still present. No cough. No sputum production. Remains on her typical all medications including Demadex 40 mg by mouth daily. Objective - Vital Signs Vital signs: Vital Signs Temp 98.6 F 09/09/22 08:00 Pulse 71 09/09/22 08:00 Resp 18 09/09/22 08:00 BP 131/78 09/09/22 08:00 Pulse Ox 96 09/09/22 10:05 FiO2 Intake & Output 09/08/22 09/09/22 09/09/22 18:59 06:59 18:59 Intake Total 360 1040 Output Total 4500 Balance 360 -3460 Weight 72.5 kg Intake: Oral 360 540 Hemodialysis 500 Output: Urine 500 Hemodialysis 4000 Other: Voiding Method Toilet Toilet Toilet # Bowel Movements 1 - Exam No acute distress, oriented 3. Currently the patient's on 3 L of oxygen by nasal cannula HEENT examination is grossly unremarkable. Neck supple. Full range of motion. No adenopathy thyromegaly or neck vein distention. Cardiovascular examination reveals regular rhythm rate. S1-S2 normal. No S3 or S4. Heart sounds are distant. A soft systolic murmur is noted. Lungs reveal scattered rhonchi and crackles. No wheezes. Breath sounds equal bilaterally. Abdomen soft bowel sounds are heard. No masses or tenderness. Extremities are intact. No cyanosis clubbing or edema. Examination of the skin revealed no evidence of significant rashes, suspicious appearing nevi or other concerning lesions. Neurologic examination is brief but nonfocal. - Labs CBC & Chem 7: 09/09/22 09:07 09/09/22 09:07 Labs: Abnormal Lab Results - Last 24 Hours (Table) 09/08/22 09/08/22 09/08/22 Range/Units 11:48 11:48 16:19 RBC (3.80-5.40) m/uL Hgb (11.4-16.0) gm/dL Hct (34.0-46.0) % MCHC (31.0-37.0) g/dL RDW (11.5-15.5) % POC Glucose (mg/dL) 241 H 240 H (70-110) mg/dL Hep B Core Total Ab Reactive A (Non-Reactive) 09/09/22 09/09/22 Range/Units 06:20 09:07 RBC 3.29 L (3.80-5.40) m/uL Hgb 9.4 L (11.4-16.0) gm/dL Hct 30.6 L (34.0-46.0) % MCHC 30.6 L (31.0-37.0) g/dL RDW 16.2 H (11.5-15.5) % POC Glucose (mg/dL) 163 H (70-110) mg/dL Hep B Core Total Ab (Non-Reactive) Assessment and Plan Plan: Acute hypoxemic respiratory failure, secondary to acute on chronic diastolic CHF. The patient also has signs of fluid overload with bilateral pleural effusions. Chest x-ray also shows hilar lymph node calcification bilaterally, rule out underlying chronic granulomatous infection/previous sarcoidosis. The chest x-ray showing improvement in the interstitial infiltrates/CHF and the patient is currently down to 3 L of O2 nasal cannula. Obstructive sleep apnea maintained on BiPAP therapy at a pressure of 15/11 cm of water History of diabetes mellitus. Acute on chronic kidney disease, with initiation of hemodialysis on 09/05/2022. History of hyperlipidemia. History of hypothyroidism. History of hypertension. History of gastroesophageal reflux disease. History of gout. Remote history of tobacco use. ALEJA Plan: Hemodialysis was performed yesterday. Nephrology to decide on further hemodialysis sessions Moderate oxygenation Wean down FiO2 as tolerated Utilize home BiPAP at a pressure of 15 of 11 cm of water Monitor hemoglobin and the patient was given IV iron Patient is on Demadex and the patient is producing minimal amount of urine Monitor oxygenation We'll continue to follow.
--- NOTE | 2022-09-09 13:34 | P.PN ---
Subjective HISTORY OF PRESENT ILLNESS: The patient is an 87-year-old female patient with a past medical history significant for heart failure with preserved ejection fraction as well as chronic kidney disease and hypertension and dyslipidemia was admitted to the hospital with heart failure exacerbation. 09/04/2022 The patient was seen and evaluated this morning. She remains failure. She remains hypoxic requiring high flow oxygen at least at 7 L. She has been urinating significantly. The kidney function and the rest of the blood work from the morning still pending at this point. Currently she is on Lasix IV. Nephrology continues to be on the case. The echo showed normal LV systolic function. September [id number] She was seen and evaluated this morning. She continues to be hypoxic on 7 L of oxygen to maintain saturation above 90%. Hemodynamically she is stable patient has been diuresing well overnight. She still short of breath even getting a normal conversation and she is asking about hospice. I am going to address that with the internal medicine team. Meanwhile continue the current dose of Lasix IV. Nephrology service as on the case. September 062022 The patient was seen this morning. She underwent dialysis yesterday. Overall she is feeling better today. She continues to be on Lasix. She continues to be hypoxic requiring oxygen at 8 L. She is going to undergo another dialysis later on today. No pain in the chest. She continues to have shortness of breath which has somewhat improved after dialysis and no lower extremity edema noted. September 072022 The patient was seen and evaluated this morning. She is feeling better. The shortness of breath is improved. She continues to be hypoxic requiring my liters of oxygen. She underwent dialysis twice so far and she is going to have another one tomorrow. No pain in the chest. She has been maintaining normal sinus mechanism. No blood work from this morning as of yet. She continues to be on Lasix IV and she has been diuresing extremely well. 09/08/2022 Patient examined this morning at the bedside. Patient's daughter is present. Patient denies chest pain or pressure. She reports improvement in her shortness of breath. She states she is scheduled to receive hemodialysis today. She remains on IV Lasix. Echocardiogram reveals ejection fraction 55-60%. Patient remains on 8 L nasal cannula. 09/09/2022 Patient examined this point. Patient is sitting up in the chair. Patient denies chest pain or pressure. She reports her shortness of breath is improving. She underwent hemodialysis yesterday. She has been transitioned to torsemide per nephrology. She is scheduled to receive hemodialysis today. PHYSICAL EXAM: VITAL SIGNS: Reviewed. GENERAL: Well-developed in no acute distress. NECK: Supple. No JVD or thyromegaly LUNGS: Respirations even and unlabored. Lungs essentially clear to auscultation bilaterally. HEART: Regular rate and rhythm. S1 and S2 heard. EXTREMITIES: Normal range of motion. No clubbing or cyanosis. Peripheral pulses intact. No lower extremity edema ASSESSMENT: Shortness of breath Acute hypoxic respiratory failure Acute on chronic heart failure with preserved ejection fraction Chronic kidney disease, on hemodialysis Hypertension Hyperlipidemia PLAN: Continue current cardiac medications Patient transitioned to Demadex today per nephrology Daily weights, accurate I&O, and monitor kidney function Hemodialysis per nephrology Further recommendations pending patient's course Nurse practitioner note has been reviewed by physician. Signing provider agrees with the documented findings, assessment, and plan of care. Objective - Vital Signs Vital signs: Vital Signs Temp 98.2 F 09/09/22 12:00 Pulse 72 09/09/22 12:00 Resp 16 09/09/22 12:00 BP 144/63 09/09/22 12:00 Pulse Ox 96 09/09/22 12:00 FiO2 Intake & Output 09/08/22 09/09/22 09/09/22 18:59 06:59 18:59 Intake Total 360 1040 Output Total 4500 Balance 360 -3460 Weight 72.5 kg Intake: Oral 360 540 Hemodialysis 500 Output: Urine 500 Hemodialysis 4000 Other: Voiding Method Toilet Toilet Toilet # Bowel Movements 1 - Labs CBC & Chem 7: 09/09/22 09:07 09/09/22 09:07 Labs: Abnormal Lab Results - Last 24 Hours (Table) 09/08/22 09/08/22 09/09/22 Range/Units 11:48 16:19 06:20 RBC (3.80-5.40) m/uL Hgb (11.4-16.0) gm/dL Hct (34.0-46.0) % MCHC (31.0-37.0) g/dL RDW (11.5-15.5) % Sodium (137-145) mmol/L Chloride (98-107) mmol/L BUN (7-17) mg/dL Creatinine (0.52-1.04) mg/dL Glucose (74-99) mg/dL POC Glucose (mg/dL) 240 H 163 H (70-110) mg/dL AST (14-36) U/L ALT (4-34) U/L Total Protein (6.3-8.2) g/dL Albumin (3.5-5.0) g/dL Hep B Core Total Ab Reactive A (Non-Reactive) 09/09/22 09/09/22 09/09/22 Range/Units 09:07 09:07 11:48 RBC 3.29 L (3.80-5.40) m/uL Hgb 9.4 L (11.4-16.0) gm/dL Hct 30.6 L (34.0-46.0) % MCHC 30.6 L (31.0-37.0) g/dL RDW 16.2 H (11.5-15.5) % Sodium 129 L (137-145) mmol/L Chloride 96 L (98-107) mmol/L BUN 45 H (7-17) mg/dL Creatinine 2.91 H (0.52-1.04) mg/dL Glucose 130 H (74-99) mg/dL POC Glucose (mg/dL) 183 H (70-110) mg/dL AST 56 H (14-36) U/L ALT 52 H (4-34) U/L Total Protein 5.8 L (6.3-8.2) g/dL Albumin 3.4 L (3.5-5.0) g/dL Hep B Core Total Ab (Non-Reactive)
--- NOTE | 2022-09-09 14:01 | P.PN ---
Subjective Progress Note Date: 09/09/22 This is a pleasant 87 years old female with past medical history of chronic kidney disease, chronic heart failure, hypertension, hyperlipidemia, hypothyroidism, diabetes mellitus, history of GERD. Patient was recently moved from [place] back to [place]. Patient states she came because of dyspnea and leg swelling for 1 month, last night she flew from [place] back to [place], Patient uses CPAP machine at night. She's been constipated other than that she denies any specific GI urinary or neurological symptoms She quit smoking 40 years ago and drinking alcohol 20 years ago. No illicit drugs. She's been complaining of from right calf pain and ultrasound was negative for DVT. She is not on oxygen at home She moved to [place] with her daughters On admission she is afebrile, mildly tachypneic, hypertensive and she was saturating 91% on 4 L oxygen via nasal cannula improved to 95% She has mild leukocytosis of 11.4, hemoglobin 10.5. Risks of CBC is unremarkable. D-dimer 2.3. BMP showing a creatinine of 2.8, unknown baseline Glucose 126. Liver enzymes unremarkable Elevated troponin 0.15. ProBNP is elevated 7580. EKG showing normal sinus rhythm with no significant ST-T changes and QTC 410. Chest x-ray: CHF Venous Doppler showed no evidence of deep venous thrombosis Ventilation perfusion this is ordered and is pending. 09/01/2022 Patient clinically the same she still fluid overload that she still feels dyspneic with bilateral leg swelling she made ordered tomorrow on urine on IV Lasix 40 mg twice daily, partly because of her advanced kidney disease, pulse the it is a stage IV chronic kidney disease, renal ultrasound showing no hydronephrosis. Bladder scan is still pending. Urine analysis is negative for infection. Cardiology evaluated the patient and recommended to continue with the same Echocardiogram showed ejection fraction 72% with moderate mitral regurgitation. Continue with home dose of aspirin 81 mg going to increase Lasix to 60 mg twice daily to increase urine output and also put the patient on fluids resection 1000 per day 09/02/2022 Patient remains hypoxic and improving slowly and gradually. Her dyspnea also is slightly better. She's on 6 L oxygen via nasal cannula She's have chronic kidney disease and increase her IV Lasix to 60 mg twice daily, she has better urine output. Patient also on fluid restriction. Continue dose of aspirin 09/03 patient seen and examined. States she feels better compared to yesterday. Currently on 5 L of oxygen Interval change 09/05/2022 Patient is seen and evaluated in room at bedside; discussed with nursing staff; no specific complaints reported Patient remains on 7 L of oxygen. -- Chest x-rays consistent with fluid overload. Echocardiogram is reported as normal left ventricular systolic function White count 7.8, hemoglobin 9.9, hematocrit 31.2, and platelet count is normal. Sodium 131, potassium 4.1, chlorides 100, CO2 20, BUN 89, and creatinine 3.33. Cardiology on board and recommending to continue with IV Lasix; continue to monitor strict MARIA DE JESUS's, daily weights 09/06/2022 Patient is seen and evaluated in room undergoing dialysis; family is at bedside Patient is status post temporary dialysis catheter placement and underwent hemodialysis yesterday and able to remove 2 L; patient reports improvement in breathing Vital signs are reviewed and remained stable; no cold for hemodialysis to remove any of the 2 L if possible; patient remains on IV Lasix infusion; we will plan to continue to monitor strict MARIA DE JESUS's and daily weights; avoid nephrotoxins and hypotension -- Nephrology recommending to discontinue Lasix infusion and transitioned to Lasix 60 mg IV every 12 hours 09/07/2022 Patient is seen and evaluated resting comfortably in bed; patient is status post right femoral dialysis catheter placement with first hemodialysis session on 09/05/2022; patient had another dialysis session completed yesterday with removal of 2 L fluid. No dialysis planned till tomorrow; patient has been transitioned from IV Lasix infusion to injection; volume overload is improving with diuresis and ultrafiltration; patient remains on low salt and fluid restricted diet with close monitoring of renal function and urine output; patient will need to be set up for outpatient dialysis once deemed necessary by nephrology 09/08. Patient seen and examined. Continues to be on 8 liters of oxygen. Patient is scheduled for dialysis today 09/09. Patient seen and examined. Still has constipation, complaining of abdominal cramps secondary to getting stool softeners. Currently on 3 L of oxygen REVIEW OF SYSTEMS: CONSTITUTIONAL: No fever, no malaise,. CARDIOVASCULAR: No chest pain, no palpitations, no syncope. PULMONARY: Gets short of breath on exertion GASTROINTESTINAL: No diarrhea, no nausea, NEUROLOGICAL: No headaches, no weakness, PHYSICAL EXAMINATION: GENERAL: The patient is alert and oriented x3, not in any acute distress. Well developed, well nourished. HEENT: Pupils are round and equally reacting to light. EOMI. No scleral icterus. No conjunctival pallor. Normocephalic, atraumatic. No pharyngeal erythema. No thyromegaly. CARDIOVASCULAR: S1 and S2 present. No murmurs, rubs, or gallops. PULMONARY: Chest is clear to auscultation, no wheezing or crackles. ABDOMEN: Soft, nontender, nondistended, normoactive bowel sounds. No palpable organomegaly. MUSCULOSKELETAL: No joint swelling or deformity. EXTREMITIES: No cyanosis, clubbing, or pedal edema. NEUROLOGICAL: Gross neurological examination did not reveal any focal deficits. SKIN: No rashes. Assessment and plan Acute on chronic diastolic CHF exacerbation Acute hypoxic respiratory failure secondary to above Chronic kidney disease, unknown baseline with possible elements of acute kidney injury Elevated troponin could be secondary to kidney disease and heart failure Diabetes mellitus Hypertension Hyperlipidemia History of osteoarthritis Hypothyroidism History of sleep apnea on CPAP/BiPAP Monitor vital signs Monitor CBC Monitor CMP Continue telemetry monitoring Strict I's and O's daily weights Continue aspirin, Lipitor Continue hydralazine, nebivolol, Procardia Continue iron supplementation IV Lasix changed to oral torsemide Monitor blood sugar levels, continue current insulin regimen Continue dialysis per nephrology Follow-up on cardiology recommendations follow-up on pulmonary recommendations Labs and medication were reviewed.. Continue same treatment. Continue with symptomatic treatment. Resume home medication. Monitor labs and vitals. DVT and GI prophylaxis. Further recommendations as per clinical course of the patient Objective - Vital Signs Vital signs: Vital Signs Temp 98.2 F 09/09/22 12:00 Pulse 72 09/09/22 12:00 Resp 16 09/09/22 12:00 BP 144/63 09/09/22 12:00 Pulse Ox 96 09/09/22 12:00 FiO2 Intake & Output 09/08/22 09/09/22 09/09/22 18:59 06:59 18:59 Intake Total 360 1040 Output Total 4500 Balance 360 -3460 Weight 72.5 kg Intake: Oral 360 540 Hemodialysis 500 Output: Urine 500 Hemodialysis 4000 Other: Voiding Method Toilet Toilet Toilet # Bowel Movements 1 - Labs CBC & Chem 7: 09/09/22 09:07 09/09/22 09:07 Labs: Abnormal Lab Results - Last 24 Hours (Table) 09/08/22 09/08/22 09/09/22 Range/Units 11:48 16:19 06:20 RBC (3.80-5.40) m/uL Hgb (11.4-16.0) gm/dL Hct (34.0-46.0) % MCHC (31.0-37.0) g/dL RDW (11.5-15.5) % Sodium (137-145) mmol/L Chloride (98-107) mmol/L BUN (7-17) mg/dL Creatinine (0.52-1.04) mg/dL Glucose (74-99) mg/dL POC Glucose (mg/dL) 240 H 163 H (70-110) mg/dL AST (14-36) U/L ALT (4-34) U/L Total Protein (6.3-8.2) g/dL Albumin (3.5-5.0) g/dL Hep B Core Total Ab Reactive A (Non-Reactive) 09/09/22 09/09/22 09/09/22 Range/Units 09:07 09:07 11:48 RBC 3.29 L (3.80-5.40) m/uL Hgb 9.4 L (11.4-16.0) gm/dL Hct 30.6 L (34.0-46.0) % MCHC 30.6 L (31.0-37.0) g/dL RDW 16.2 H (11.5-15.5) % Sodium 129 L (137-145) mmol/L Chloride 96 L (98-107) mmol/L BUN 45 H (7-17) mg/dL Creatinine 2.91 H (0.52-1.04) mg/dL Glucose 130 H (74-99) mg/dL POC Glucose (mg/dL) 183 H (70-110) mg/dL AST 56 H (14-36) U/L ALT 52 H (4-34) U/L Total Protein 5.8 L (6.3-8.2) g/dL Albumin 3.4 L (3.5-5.0) g/dL Hep B Core Total Ab (Non-Reactive)
[2022-09-09] MEDS: MIDAZOLAM 2 MG/2 ML VIAL IVP ONE ×2 (15:13→15:20)
[2022-09-09] MEDS ORDERED: LIDOCAINE 1% INJ 10MG/ML (20 ML MDV) SQ ONE (15:15)
[2022-09-09] MEDS ORDERED: fentaNYL (PF) 50 MCG/ML 2 ML AMP IVP ONE (15:26)
--- NOTE | 2022-09-09 15:49 | P.PCN ---
Description of Procedure: Preop diagnoses is acute chronic renal failure Posterior same Procedure #1 ultrasound-guided 20 mL CM dialysis catheter placement right jugular approach #2 removal of dialysis catheter right femoral approach sedation time is 25 minutes patient brought to the [facility] of the neck and groins were prepped and draped applied sterile manner 1% lidocaine plain infiltrated neck and chest area. Ultrasound-guided micropuncture introducer right jugular vein micropuncture guidewire was passed. Then we passed a 4-S[place] Arabian dilator and then we passed a regular guidewire which was parked at the inferior vena cava a tendon was created through the terminal be brought 23 same dialysis catheter and dilator were advanced on the top of the guidewire. Then sheath was advanced. The guidewire. Through the sheath we placed our Paluck catheter through the sheath and sheath was removed catheter was at superior vena cava at the junction flush with heparin 6 saline incision was closed with Vicryl and nylon and nylon dressing applied patient for the procedure well and right groin was prepped stitches were removed and dialysis catheter was removed pressure was held patient brought to the procedure well plan is excision of the chest for dialysis catheter placement
--- NOTE | 2022-09-09 15:58 | IR ---
EXAMINATION TYPE: IR cvc insert central tunneled DATE OF EXAM: 09/09/2022 COMPARISON: NONE HISTORY: Fluoroscopy time. Fluoroscopy was provided to the referring clinician.
--- NOTE | 2022-09-09 16:23 | XR ---
EXAMINATION TYPE: XR chest 1V portable DATE OF EXAM: 09/09/2022 4:18 PM COMPARISON: Chest radiographs from 09/09/2022 TECHNIQUE: XR chest 1V portable Frontal view of the chest. CLINICAL INDICATION:Female, 87 years old with history of hemodialysis catheter placement; FINDINGS: Lungs/Pleura: There is no evidence of right pleural effusion, focal consolidation, or pneumothorax. Blunting of the left costophrenic angle. Increased interstitial lung markings. Pulmonary vascularity: Unremarkable. Heart/mediastinum: Cardiomediastinal silhouette is enlarged and stable. Atherosclerotic calcificatio ns are seen in the aorta. Musculoskeletal: No acute osseous pathology. Right central venous catheter with tip at at the superior cavoatrial junction. No pneumothorax. IMPRESSION: 1. No acute cardiopulmonary disease/process. 2. Small left pleural effusion associated atelectasis. 3. Right central venous catheter tip in appropriate position.
[2022-09-09 16:56] LABS: Glucose,Whole Blood 169 mg/dL (70-110)
[2022-09-09 20:09] LABS: Glucose,Whole Blood 108 mg/dL (70-110)
[2022-09-09] MEDS: MELATONIN 5 MG TABLET PO SCH (21:39)
[2022-09-09] MEDS: Acetaminophen-Codeine 300-30mg TAB PO PRN (21:39)
[2022-09-09] MEDS: ASPIRIN 81 MG PO SCH (21:39)
--- NOTE | 2022-09-09 22:45 | P.CONS ---
History of Present Illness - Reason for Consult Consult date: 09/09/22 hepatitis B Requesting physician: J Luis Tate - Chief Complaint Shortness of breath x few days - History of Present Illness Patient is a 87-year-old female presenting to the hospital about 10 days ago for evaluation of increasing shortness of breath and leg swelling that has been getting worse for about a month before presentation to the hospital patient did have a multiple comorbidities including hypertension hyperlipidemia hypothyroidism diabetes mellitus and reflux patient is from [place] however she moved to [place] about 25 years ago and recently came back to be with her daughters patient noticed to have worsening of her kidney function requiring dialysis catheter placement and patient will be dialyzed patient initially did have a right groin catheter to have a switch to the right subclavian permacatheter during work-up for her dialysis patient did have a positive hepatitis B surface antigen and core antibodies that has prompted this infec tious disease consultation patient has been twice and last person she has been with 3 years ago from cancer patient denies any high risk sexual behavior and never tested positive for hepatitis B in the past and none of her tested positive, patient never have a history of jaundice and never have a history of IV drug use or blood transfusion, patient did have mildly elevated liver enzymes during this hospital stay ALT is mild elevated 52 today however it was normal admission of 31 Review of Systems Positive point and negatives has been mentioned in the HPI, complete review of systems was performed and all other systems are negative Past Medical History Past Medical History: Heart Failure Additional Past Medical History / Comment(s): CKD Stage 4 History of Any Multi-Drug Resistant Organisms: None Reported Past Surgical History: Appendectomy, Hysterectomy, Joint Replacement Additional Past Surgical History / Comment(s): L knee total hip. R side thyroid removal for benign growth. Past Anesthesia/Blood Transfusion Reactions: No Reported Reaction Past Psychological History: Anxiety Smoking Status: Former smoker Past Alcohol Use History: Rare - Past Family History Mother Additional Family Medical History / Comment(s): at 38 of a [place]. Father Additional Family Medical History / Comment(s): at 58 of a CVA. Medications and Allergies Home Medications Medication Instructions Recorded Confirmed Type Aspirin EC [Ecotrin Low Dose] 81 mg PO HS 08/31/22 08/31/22 History Atorvastatin [Lipitor] 20 mg PO DAILY 08/31/22 08/31/22 History Cyanocobalamin (Vitamin B-12) 1,000 mcg PO DAILY 08/31/22 08/31/22 History [Vitamin B-12] Insulin NPH Hum/Reg Insulin Hm 18 unit SQ AC-SUPPER 08/31/22 08/31/22 History [Novolin 70-30 100 Unit/ml Vial] Levothyroxine Sodium [Synthroid] 75 mcg PO DAILY 08/31/22 08/31/22 History Melatonin [Melatonin ER] 10 mg PO HS 08/31/22 08/31/22 History Multivitamins, Thera [Multivitamin 1 tab PO DAILY 08/31/22 08/31/22 History (formulary)] NIFEdipine XL [Procardia XL] 60 mg PO BID 08/31/22 08/31/22 History Nebivolol [Bystolic] 5 mg PO BID 08/31/22 08/31/22 History Omeprazole [PriLOSEC] 20 mg PO BID 08/31/22 08/31/22 History allopurinoL [Zyloprim] 100 mg PO BID 08/31/22 08/31/22 History busPIRone HCl [Buspar] 10 mg PO BID 08/31/22 08/31/22 History hydrALAZINE HCL [Apresoline] 50 mg PO TID 08/31/22 08/31/22 History predniSONE See Taper PO DAILY 08/31/22 08/31/22 History Torsemide [Demadex] 40 mg PO DAILY #30 tab 09/11/22 Rx Allergies Allergy/AdvReac Type Severity Reaction Status Date / Time adhesive tape Allergy Unknown Verified 08/31/22 16:25 meperidine [From Demerol] Allergy Unknown Verified 08/31/22 16:24 methylprednisolone Allergy Unknown Verified 08/31/22 16:25 [From Medrol] Physical Exam Vitals: Vital Signs Temp Pulse Resp BP Pulse Ox Pulse Ox Pulse Ox 09/09/22 12:00 98.2 F 72 16 144/63 96 09/09/22 10:05 96 09/09/22 08:00 98.6 F 71 18 131/78 96 09/09/22 04:00 63 17 132/64 97 09/08/22 23:45 74 17 128/50 95 09/08/22 23:08 96.7 F L 63 18 134/51 09/08/22 20:00 97.9 F 64 17 143/65 98 09/08/22 16:57 97.7 F 60 18 119/52 98 09/08/22 15:51 92 L 88 L Intake and Output 09/08/22 09/09/22 09/09/22 22:59 06:59 14:59 Intake Total 1040 Output Total 300 4200 400 Balance -300 3160 -400 Intake: Oral 540 Hemodialysis 500 Output: Urine 300 200 400 Hemodialysis 4000 Other: Voiding Method Toilet Toilet Toilet # Bowel Movements 1 Weight 72.5 kg GENERAL DESCRIPTION: An elderly female lying in bed, no distress. No tachypnea or accessory muscle of respiration use. HEENT: Shows Pallor , no scleral icterus. Oral mucous membrane is dry. No pharyngeal erythema or thrush NECK: Trachea central, no thyromegaly. LUNGS: Unlabored breathing. Clear to auscultation anteriorly. HEART: S1, S2, regular rate and rhythm. No loud murmur ABDOMEN: Soft, no tenderness , EXTREMITIES: No edema of feet. SKIN: No rash, no masses palpable. NEUROLOGICAL: The patient is awake, alert, oriented x3, mood and affect normal. Results CBC & Chem 7: 09/09/22 09:07 09/09/22 09:07 Labs: Abnormal Lab Results - Last 24 Hours (Table) 09/08/22 09/08/22 09/09/22 Range/Units 11:48 16:19 06:20 RBC (3.80-5.40) m/uL Hgb (11.4-16.0) gm/dL Hct (34.0-46.0) % MCHC (31.0-37.0) g/dL RDW (11.5-15.5) % Sodium (137-145) mmol/L Chloride (98-107) mmol/L BUN (7-17) mg/dL Creatinine (0.52-1.04) mg/dL Glucose (74-99) mg/dL POC Glucose (mg/dL) 240 H 163 H (70-110) mg/dL AST (14-36) U/L ALT (4-34) U/L Total Protein (6.3-8.2) g/dL Albumin (3.5-5.0) g/dL Hep B Core Total Ab Reactive A (Non-Reactive) 09/09/22 09/09/2223 Range/Units 09:07 09:07 11:48 RBC 3.29 L (3.80-5.40) m/uL Hgb 9.4 L (11.4-16.0) gm/dL Hct 30.6 L (34.0-46.0) % MCHC 30.6 L (31.0-37.0) g/dL RDW 16.2 H (11.5-15.5) % Sodium 129 L (137-145) mmol/L Chloride 96 L (98-107) mmol/L BUN 45 H (7-17) mg/dL Creatinine 2.91 H (0.52-1.04) mg/dL Glucose 130 H (74-99) mg/dL POC Glucose (mg/dL) 183 H (70-110) mg/dL AST 56 H (14-36) U/L ALT 52 H (4-34) U/L Total Protein 5.8 L (6.3-8.2) g/dL Albumin 3.4 L (3.5-5.0) g/dL Hep B Core Total Ab (Non-Reactive) Assessment and Plan (1) Chronic hepatitis B Current Visit: Yes Status: Acute Code(s): B18.1 - CHRONIC VIRAL HEPATITIS B WITHOUT DELTA-AGENT SNOMED Code(s): 43522876 Plan: 1patient with a positive hepatitis B core antibodies and also hepatitis B surface antigen has been reactive however the patient do not have any high risk behavior and did have normal liver enzymes on admission though they are slightly elevated on today's redraw, patient never has been tested positive for hepatitis B in the past 2-we will repeat her hepatitis B surface antigen we will also check core and IgM antibodies as well as hepatitis E antigen antibody and hepatitis B DNA to confirm the diagnosis 3-no need for any antiviral at this point We will follow on clinical condition and cultures to further adjust medication if needed Thank you for this consultation we will follow the patient along with you Time with Patient: Greater than 30
[2022-09-10] MEDS: HEPARIN SODIUM,PORCINE/PF 5,000 UNIT/0.5 ML SYRINGE SQ SCH ×4 (01:10→23:48)
[2022-09-10] MEDS: Acetaminophen-Codeine 300-30mg TAB PO PRN (04:37)
[2022-09-10 05:55] LABS: Hepatitis BE Antibody REACTIVE (Nonreactive); Hepatitis BE Antigen Nonreactive (Nonreactive)
[2022-09-10 06:14] LABS: Glucose,Whole Blood 129 mg/dL (70-110)
[2022-09-10] MEDS: INSULIN ASPART (NovoLOG) 100 UNIT/ML VIAL SQ SCH ×4 (06:15→20:39)
[2022-09-10] MEDS: PANTOPRAZOLE 40 MG TABLET PO SCH (06:31)
[2022-09-10] MEDS: LEVOTHYROXINE 75 MCG TAB PO SCH (06:31)
[2022-09-10] MEDS: busPIRone HCl 10 MG TAB PO SCH ×2 (07:39→20:54)
[2022-09-10] MEDS: NEBIVOLOL 5 MG TAB PO SCH ×2 (07:39→20:54)
[2022-09-10] MEDS: INSULN ASP PRT/INSULIN ASPART 100 UNIT/ML 10 ML VIAL SQ SCH ×2 (07:39→16:56)
[2022-09-10] MEDS: CYANOCOBALAMIN 500 MCG TAB PO SCH (07:39)
[2022-09-10] MEDS: MULTIVITAMINS, THERA 1 EACH TAB PO SCH (07:39)
[2022-09-10] MEDS: DOCUSATE 100 MG CAP PO SCH ×2 (07:39→20:54)
[2022-09-10] MEDS: ATORVASTATIN 20 MG TAB PO SCH (07:39)
[2022-09-10] MEDS: SODIUM BICARBONATE TAB 650 MG TAB PO SCH ×2 (07:39→20:54)
[2022-09-10] MEDS: hydrALAZINE HCL 50 MG TAB PO SCH ×3 (07:40→20:54)
[2022-09-10] MEDS: TORSEMIDE 20 MG TAB PO SCH (07:40)
[2022-09-10] MEDS: allopurinoL 100 MG TAB PO SCH ×2 (07:40→20:54)
[2022-09-10] MEDS: LACTULOSE 20 GM/30 ML CUP PO SCH ×3 (07:41→20:00)
--- NOTE | 2022-09-10 11:29 | P.PN ---
Subjective Progress Note Date: 09/10/22 87-year-old female who recently moved back to [place] from [place]. She presented to the emergency department on August 31, complaining of shortness of breath. The patient is currently seen today in room 366. Her 3 daughters are present. She apparently been having shortness breath for a number of days, and decided to come into the hospital to be evaluated. She does not have a family doctor in this area, and is hoping to establish herself with Dr. Chanell Turk. She does have a remote history of tobacco use. She smoked only socially. The patient denies a history of chronic lung disease. She appears to have diastolic CHF. Her chest x-ray was consistent with fluid overload, and her N-terminal proBNP was elevated. The patient's currently on 6 L of oxygen. She has been seen by cardiology. In addition to diastolic CHF, she has a history of hyperlipidemia, diabetes, hypothyroidism, insomnia, gastroesophageal reflux disease, and gout. Laboratory data from September 01 showed white count of 7.9, hemoglobin 9.3, hematocrit 29.1, and a normal platelet count. Sodium 136, potassium 3.5, chlorides 102, CO2 22, BUN 81, and creatinine 2.86. The patient's troponins were 0.156 and 0.112. N-terminal proBNP was 7580. Chest x- ray was consistent with fluid overload. Dopplers of the lower semis were negative. Pulmonary perfusion lung scan, was negative. Progress note dated 09/03/2022. The patient is seen today in room 366. She was seen in consultation yesterday. Please see the note above. She remains on saline at 10 mL an hour, and also oxygen is 7 L nasal cannula. She was admitted with a diagnosis of CHF. She has diastolic CHF. Currently, she seems to be doing about the same, no better, but no worse. No new labs today other than a blood glucose of 226. A repeat chest x-ray was ordered for tomorrow. Progress note dated 09/04/2022. The patient is seen today in room 366. Currently, she is on 7 L of oxygen. She's not receiving any IV fluids. Chest x-rays consistent with fluid overload. The patient does feel fatigued, and a short of breath on exertion. She was adm itted with a diagnosis of diastolic CHF. White count 7.8, hemoglobin 9.9, hematocrit 31.2, and platelet count is normal. Sodium 131, potassium 4.1, chlorides 100, CO2 20, BUN 89, and creatinine 3.33. Progress note dated 09/05/2022. 87-year-old female seen today in room 366. She was admitted with hypoxemic respiratory failure, secondary to fluid overload. Unfortunately, her renal function has worsened, and the patient will likely need hemodialysis. I suspect a hemodialysis catheter will be placed today. Her chest x-ray shows fluid overload. She does have diastolic CHF. She's currently on 7 L of oxygen. That has not really improved at all. No new labs today other glucose of 225. Her creatinine is up to 3.33. Her BUN from yesterday was 89. Progress note dated 09/06/2022. 87-year-old female seen today in room 366. The patient had a hemodialysis catheter placed yesterday. She had hemodialysis, and 2 L of fluid was removed. She's currently on 9 L high flow nasal cannula, and is receiving a Lasix drip at 10 mg an hour. She's feeling a bit better today than she did yesterday, and clinically, she looks a bit better. Lab data today includes a glucose of 129. Progress note dated August. 87-year-old female seen today in room 366. The patient has had 2 sessions of hemodialysis. During both sessions, 2 L of fluid was removed. The patient is feeling better. She has been weaned down to 8 liter high flow oxygen. Laboratory data today includes only a glucose of 133. The patient is feeling much improved. Her breathing is much better. She will have dialysis again tomorrow. On today's evaluation of 09/08/2022, the patient is being seen for a follow-up. The patient remains on oxygen at 8 L nasal cannula. The patient is still having some shortness of breath. Urine output is minimal and the patient is on Lasix. The patient is going to undergo her third session of hemodialysis today. Her sodium level is at 128, BUN is at 52 with a creatinine of 3.3 and the potassium levels at 4.7. She also has obstructive sleep apnea and the patient is utilizing a BiPAP at home at a pressure of 15/11 cm of water. This was not used because of her high oxygen requirements. Her chest x-ray was consistent with CHF/fluid overload with bilateral pleural effusions. There is also evidence of lymph node calcification involving the hilar areas. Had echocardiogram was showing a preserved LV function, no significant valvular abnormalities noted. On 09/09/2022, the patient has feeling weak and lethargic. Nevertheless, reduction she is improved and the patient is currently on 3 L of oxygen by nasal cannula. She has brought her BiPAP machine from home at a pressure of 15/11 cm of water and would also going to feed and oxygen via an adapter that was attach ed her BiPAP machine. She underwent her first session of hemodialysis yesterday with 2 L of ultrafiltration. She is less short of breath. BUN is at 45 with a creatinine of 2.9 and a sodium level is at 129. White cell count is at 8 with a hemoglobin of 9.4. Repeat chest x-ray from today shows improvement in interstitial congestion with some changes consistent with CHF still present. No cough. No sputum production. Remains on her typical all medications including Demadex 40 mg by mouth daily. On today's evaluation of 09/10/2022, the patient is feeling great. She took a walk and she is not having any significant shortness of breath. She is currently on room air oxygen. She underwent hemodialysis yesterday and an additional plan have liters was taken off her body. She is pleasant BiPAP overnight. She is doing well. No specific complaints pH and the permacath inserted also. Urine output is minimal for now. She is on Demadex 40 mg by mouth daily. No other complaints otherwise for now. No other significant events overnight. Objective - Vital Signs Vital signs: Vital Signs Temp 97.7 F 09/10/22 08:00 Pulse 59 L 09/10/22 08:00 Resp 18 09/10/22 08:00 BP 104/53 09/10/22 08:00 Pulse Ox 96 09/10/22 08:00 FiO2 Intake & Output 09/09/22 09/10/22 09/10/22 18:59 06:59 18:59 Intake Total 500 240 Output Total 400 3150 150 Balance -400 -2650 90 Weight 70.1 kg Intake: Oral 240 Hemodialysis 500 Output: Urine 400 150 150 Hemodialysis 3000 Other: Voiding Method Toilet Toilet Toilet # Voids 1 1 # Bowel Movements 1 - Exam No acute distress, oriented 3. Currently the patient's on room air oxygen HEENT examination is grossly unremarkable. Neck supple. Full range of motion. No adenopathy thyromegaly or neck vein distention. Cardiovascular examination reveals regular rhythm rate. S1-S2 normal. No S3 or S4. Heart sounds are distant. A soft systolic murmur is noted. Lungs reveal scattered rhonchi and crackles. No wheezes. Breath sounds equal bilaterally. Abdomen soft bowel sounds are heard. No masses or tenderness. Extremities are intact. No cyanosis clubbing or edema. Examination of the skin revealed no evidence of significant rashes, suspicious appearing nevi or other concerning lesions. Neurologic examination is brief but nonfocal. - Labs CBC & Chem 7: 09/09/22 09:07 09/09/22 09:07 Labs: Abnormal Lab Results - Last 24 Hours (Table) 09/09/22 09/09/22 09/09/22 Range/Units 11:48 16:55 17:33 POC Glucose (mg/dL) 183 H 169 H (70-110) mg/dL Hepatitis Be Antibody REACTIVE A (Nonreactive) 09/10/22 Range/Units 06:12 POC Glucose (mg/dL) 129 H (70-110) mg/dL Hepatitis Be Antibody (Nonreactive) Assessment and Plan Plan: Acute hypoxemic respiratory failure, secondary to acute on chronic diastolic CHF. The patient also has signs of fluid overload with bilateral pleural effusions. Chest x-ray also shows hilar lymph node calcification bilaterally, rule out underlying chronic granulomatous infection/previous sarcoidosis. The chest x-ray showing improvement in the interstitial infiltrates/CHF and the patient is currently down to room air oxygen and she is not having any significant shortness of breath on today's evaluation Obstructive sleep apnea maintained on BiPAP therapy at a pressure of 15/11 cm of water History of diabetes mellitus. Acute on chronic kidney disease, with initiation of hemodialysis on 09/05/2022. History of hyperlipidemia. History of hypothyroidism. History of hypertension. History of gastroesophageal reflux disease. History of gout. Remote history of tobacco use. ALEJA Plan: Hemodialysis was performed yesterday. A total of 2 L of ultrafiltration and the patient is currently on room air oxygen Room air oxygen without any shortness of breath Utilize home BiPAP at a pressure of 15 of 11 cm of water Monitor hemoglobin and the patient was given IV iron Patient is on Demadex and the patient is producing minimal amount of urine Monitor oxygenation We'll continue to follow.
[2022-09-10 11:41] LABS: Glucose,Whole Blood 149 mg/dL (70-110)
[2022-09-10 13:27] LABS: Hepatitis B Virus DNA DETECTED (Not detected); Hepatitis B Virus DNA, Quant 103 IU/mL (<10); Log HBV IU/mL 2.01 (<1.00)
--- NOTE | 2022-09-10 14:00 | P.PN ---
Subjective HISTORY OF PRESENT ILLNESS: The patient is an 87-year-old female patient with a past medical history significant for heart failure with preserved ejection fraction as well as chronic kidney disease and hypertension and dyslipidemia was admitted to the hospital with heart failure exacerbation. 09/04/2022 The patient was seen and evaluated this morning. She remains failure. She remains hypoxic requiring high flow oxygen at least at 7 L. She has been urinating significantly. The kidney function and the rest of the blood work from the morning still pending at this point. Currently she is on Lasix IV. Nephrology continues to be on the case. The echo showed normal LV systolic function. September [id number] She was seen and evaluated this morning. She continues to be hypoxic on 7 L of oxygen to maintain saturation above 90%. Hemodynamically she is stable patient has been diuresing well overnight. She still short of breath even getting a normal conversation and she is asking about hospice. I am going to address that with the internal medicine team. Meanwhile continue the current dose of Lasix IV. Nephrology service as on the case. September 062022 The patient was seen this morning. She underwent dialysis yesterday. Overall she is feeling better today. She continues to be on Lasix. She continues to be hypoxic requiring oxygen at 8 L. She is going to undergo another dialysis later on today. No pain in the chest. She continues to have shortness of breath which has somewhat improved after dialysis and no lower extremity edema noted. September 072022 The patient was seen and evaluated this morning. She is feeling better. The shortness of breath is improved. She continues to be hypoxic requiring my liters of oxygen. She underwent dialysis twice so far and she is going to have another one tomorrow. No pain in the chest. She has been maintaining normal sinus mechanism. No blood work from this morning as of yet. She continues to be on Lasix IV and she has been diuresing extremely well. 09/08/2022 Patient examined this morning at the bedside. Patient's daughter is present. Patient denies chest pain or pressure. She reports improvement in her shortness of breath. She states she is scheduled to receive hemodialysis today. She remains on IV Lasix. Echocardiogram reveals ejection fraction 55-60%. Patient remains on 8 L nasal cannula. 09/09/2022 Patient examined this point. Patient is sitting up in the chair. Patient denies chest pain or pressure. She reports her shortness of breath is improving. She underwent hemodialysis yesterday. She has been transitioned to torsemide per nephrology. She is scheduled to receive hemodialysis today. 09/10/2022 Patient examined this afternoon. Patient is sitting up in the chair. She denies chest pain or pressure. She reports improvement in her shortness of breath. She states she has been ambulating in the hallway without difficulty. She had hemodialysis yesterday. She remains on oral diuretics. PHYSICAL EXAM: VITAL SIGNS: Reviewed. GENERAL: Well-developed in no acute distress. NECK: Supple. No JVD or thyromegaly LUNGS: Respirations even and unlabored. Lungs essentially clear to auscultation bilaterally. HEART: Regular rate and rhythm. S1 and S2 heard. EXTREMITIES: Normal range of motion. No clubbing or cyanosis. Peripheral pulses intact. No lower extremity edema ASSESSMENT: Shortness of breath Acute hypoxic respiratory failure Acute on chronic heart failure with preserved ejection fraction Chronic kidney disease, on hemodialysis Hypertension Hyperlipidemia PLAN: Continue current cardiac medications Patient is stable from a cardiac standpoint We will sign off. Please reconsult if needed. Nurse practitioner note has been reviewed by physician. Signing provider agrees with the documented findings, assessment, and plan of care. Objective - Vital Signs Vital signs: Vital Signs Temp 98 F 09/10/22 12:00 Pulse 60 09/10/22 12:00 Resp 18 09/10/22 12:00 BP 125/55 09/10/22 12:00 Pulse Ox 97 09/10/22 12:00 FiO2 Intake & Output 09/09/22 09/10/22 09/10/22 18:59 06:59 18:59 Intake Total 500 240 Output Total 400 3150 250 Balance -400 -2650 -10 Weight 70.1 kg Intake: Oral 240 Hemodialysis 500 Output: Urine 400 150 250 Hemodialysis 3000 Other: Voiding Method Toilet Toilet Toilet # Voids 1 1 # Bowel Movements 1 - Labs CBC & Chem 7: 09/09/22 09:07 09/09/22 09:07 Labs: Abnormal Lab Results - Last 24 Hours (Table) 09/09/22 09/09/22 09/10/22 Range/Units 16:55 17:33 06:12 POC Glucose (mg/dL) 169 H 129 H (70-110) mg/dL Hepatitis B DNA, Quant 103 H (<10) IU/mL Hep B DNA Qnt log IU/mL 2.01 H (<1.00) Hep B DNA Interpret DETECTED A (Not detected) Hepatitis Be Antibody REACTIVE A (Nonreactive) 09/10/22 Range/Units 11:39 POC Glucose (mg/dL) 149 H (70-110) mg/dL Hepatitis B DNA, Quant (<10) IU/mL Hep B DNA Qnt log IU/mL (<1.00) Hep B DNA Interpret (Not detected) Hepatitis Be Antibody (Nonreactive)
--- NOTE | 2022-09-10 14:20 | P.PN ---
Subjective Patient is seen in follow-up for acute kidney injury on chronic kidney disease. Started on hemodialysis 09/05/2022. Permacath placed this morning. Dyspnea improved. On room air. On oral Demadex. Patient states she is voiding but only small amount. Urine output documented as 500 mL in the last 24 hours. Hemodynamically stable. Vital signs are stable. General: No acute distress. HEENT: Head exam is unremarkable. LUNGS: No audible rhonchi or wheezes. HEART: Rate and Rhythm are regular. ABDOMEN: Nontender. EXTREMITITES: No edema. Objective - Vital Signs Vital signs: Vital Signs Temp 98 F 09/10/22 12:00 Pulse 60 09/10/22 12:00 Resp 18 09/10/22 12:00 BP 125/55 09/10/22 12:00 Pulse Ox 97 09/10/22 12:00 FiO2 Intake & Output 09/09/22 09/10/22 09/10/22 18:59 06:59 18:59 Intake Total 500 720 Output Total 400 3150 250 Balance -400 -2650 470 Weight 70.1 kg Intake: Oral 720 Hemodialysis 500 Output: Urine 400 150 250 Hemodialysis 3000 Other: Voiding Method Toilet Toilet Toilet # Voids 1 1 # Bowel Movements 1 - Labs CBC & Chem 7: 09/09/22 09:07 09/09/22 09:07 Labs: Abnormal Lab Results - Last 24 Hours (Table) 09/09/22 09/09/22 09/10/22 Range/Units 16:55 17:33 06:12 POC Glucose (mg/dL) 169 H 129 H (70-110) mg/dL Hepatitis B DNA, Quant 103 H (<10) IU/mL Hep B DNA Qnt log IU/mL 2.01 H (<1.00) Hep B DNA Interpret DETECTED A (Not detected) Hepatitis Be Antibody REACTIVE A (Nonreactive) 09/10/22 Range/Units 11:39 POC Glucose (mg/dL) 149 H (70-110) mg/dL Hepatitis B DNA, Quant (<10) IU/mL Hep B DNA Qnt log IU/mL (<1.00) Hep B DNA Interpret (Not detected) Hepatitis Be Antibody (Nonreactive) Assessment and Plan Plan: Assessment: 1. Acute kidney injury secondary to ATN secondary to cardiorenal syndrome. Also concern for progression of underlying chronic kidney disease stage IV. Patient was following with a wringer machine operator in [place] and recently moved to [place]. No hydronephrosis noted on kidney ultrasound. 1+ protein on UA. Patient has underlying diabetic kidney disease. Started on hemodialysis 09/05/2022. Creatinine 2.87 on admission and up to 3.56 this admission. 2. Volume overload. Improving to diuresis and ultrafiltration. 3. Acute on chronic diastolic CHF and moderate tricuspid regurgitation. 4. Diabetes mellitus. 5. Anemia of chronic kidney disease. Iron deficiency noted. s/p IV iron. 6. Metabolic acidosis secondary to chronic kidney disease. On oral bicarb. 7. Hypertension with chronic kidney disease. Stable. 8. Chronic kidney disease mineral bone disease. Phosphorous 4.1, vitamin D 35 and PTH 79 this admission. 9. Hyponatremia secondary to acute kidney injury. Hypervolemic. 10. 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 This was confirmed with lab. ID following. Plan: Hemodialysis tomorrow. Outpatient dialysis being set up. She will be maintained on a Thursday schedule. Maintain torsemide. Maintain low salt diet and fluid restriction. Continue to monitor renal function and urine output. Monitor for renal recovery.
--- NOTE | 2022-09-10 14:26 | P.PN ---
Subjective Progress Note Date: 09/10/22 This is a pleasant 87 years old female with past medical history of chronic kidney disease, chronic heart failure, hypertension, hyperlipidemia, hypothyroidism, diabetes mellitus, history of GERD. Patient was recently moved from [place] back to [place]. Patient states she came because of dyspnea and leg swelling for 1 month, last night she flew from [place] back to [place], Patient uses CPAP machine at night. She's been constipated other than that she denies any specific GI urinary or neurological symptoms She quit smoking 40 years ago and drinking alcohol 20 years ago. No illicit drugs. She's been complaining of from right calf pain and ultrasound was negative for DVT. She is not on oxygen at home She moved to [place] with her daughters On admission she is afebrile, mildly tachypneic, hypertensive and she was saturating 91% on 4 L oxygen via nasal cannula improved to 95% She has mild leukocytosis of 11.4, hemoglobin 10.5. Risks of CBC is unremarkable. D-dimer 2.3. BMP showing a creatinine of 2.8, unknown baseline Glucose 126. Liver enzymes unremarkable Elevated troponin 0.15. ProBNP is elevated 7580. EKG showing normal sinus rhythm with no significant ST-T changes and QTC 410. Chest x-ray: CHF Venous Doppler showed no evidence of deep venous thrombosis Ventilation perfusion this is ordered and is pending. 09/01/2022 Patient clinically the same she still fluid overload that she still feels dyspneic with bilateral leg swelling she made ordered tomorrow on urine on IV Lasix 40 mg twice daily, partly because of her advanced kidney disease, pulse the it is a stage IV chronic kidney disease, renal ultrasound showing no hydronephrosis. Bladder scan is still pending. Urine analysis is negative for infection. Cardiology evaluated the patient and recommended to continue with the same Echocardiogram showed ejection fraction 72% with moderate mitral regurgitation. Continue with home dose of aspirin 81 mg going to increase Lasix to 60 mg twice daily to increase urine output and also put the patient on fluids resection 1000 per day 09/02/2022 Patient remains hypoxic and improving slowly and gradually. Her dyspnea also is slightly better. She's on 6 L oxygen via nasal cannula She's have chronic kidney disease and increase her IV Lasix to 60 mg twice daily, she has better urine output. Patient also on fluid restriction. Continue dose of aspirin 09/03 patient seen and examined. States she feels better compared to yesterday. Currently on 5 L of oxygen Interval change 09/05/2022 Patient is seen and evaluated in room at bedside; discussed with nursing staff; no specific complaints reported Patient remains on 7 L of oxygen. -- Chest x-rays consistent with fluid overload. Echocardiogram is reported as normal left ventricular systolic function White count 7.8, hemoglobin 9.9, hematocrit 31.2, and platelet count is normal. Sodium 131, potassium 4.1, chlorides 100, CO2 20, BUN 89, and creatinine 3.33. Cardiology on board and recommending to continue with IV Lasix; continue to monitor strict MARIA DE JESUS's, daily weights 09/06/2022 Patient is seen and evaluated in room undergoing dialysis; family is at bedside Patient is status post temporary dialysis catheter placement and underwent hemodialysis yesterday and able to remove 2 L; patient reports improvement in breathing Vital signs are reviewed and remained stable; no cold for hemodialysis to remove any of the 2 L if possible; patient remains on IV Lasix infusion; we will plan to continue to monitor strict MARIA DE JESUS's and daily weights; avoid nephrotoxins and hypotension -- Nephrology recommending to discontinue Lasix infusion and transitioned to Lasix 60 mg IV every 12 hours 09/07/2022 Patient is seen and evaluated resting comfortably in bed; patient is status post right femoral dialysis catheter placement with first hemodialysis session on 09/05/2022; patient had another dialysis session completed yesterday with removal of 2 L fluid. No dialysis planned till tomorrow; patient has been transitioned from IV Lasix infusion to injection; volume overload is improving with diuresis and ultrafiltration; patient remains on low salt and fluid restricted diet with close monitoring of renal function and urine output; patient will need to be set up for outpatient dialysis once deemed necessary by nephrology 09/08. Patient seen and examined. Continues to be on 8 liters of oxygen. Patient is scheduled for dialysis today 09/09. Patient seen and examined. Still has constipation, complaining of abdominal cramps secondary to getting stool softeners. Currently on 3 L of oxygen 09/10. Patient seen and examined. States breathing has improved, currently off oxygen. REVIEW OF SYSTEMS: CONSTITUTIONAL: No fever, no malaise,. CARDIOVASCULAR: No chest pain, no palpitations, no syncope. PULMONARY: Gets short of breath on exertion GASTROINTESTINAL: No diarrhea, no nausea, NEUROLOGICAL: No headaches, no weakness, PHYSICAL EXAMINATION: GENERAL: The patient is alert and oriented x3, not in any acute distress. Well developed, well nourished. HEENT: Pupils are round and equally reacting to light. EOMI. No scleral icterus. No conjunctival pallor. Normocephalic, atraumatic. No pharyngeal erythema. No thyromegaly. CARDIOVASCULAR: S1 and S2 present. No murmurs, rubs, or gallops. PULMONARY: Chest is clear to auscultation, no wheezing or crackles. ABDOMEN: Soft, nontender, nondistended, normoactive bowel sounds. No palpable organomegaly. MUSCULOSKELETAL: No joint swelling or deformity. EXTREMITIES: No cyanosis, clubbing, or pedal edema. NEUROLOGICAL: Gross neurological examination did not reveal any focal deficits. SKIN: No rashes. Assessment and plan Acute on chronic diastolic CHF exacerbation Acute hypoxic respiratory failure secondary to above Chronic kidney disease, unknown baseline with possible elements of acute kidney injury Elevated troponin could be secondary to kidney disease and heart failure Diabetes mellitus Hypertension Hyperlipidemia History of osteoarthritis Hypothyroidism History of sleep apnea on CPAP/BiPAP Monitor vital signs Monitor CBC Monitor CMP Continue telemetry monitoring Strict I's and O's daily weights Continue aspirin, Lipitor Continue hydralazine, nebivolol, Procardia Continue iron supplementation Continue oral torsemide Monitor blood sugar levels, continue current insulin regimen Continue dialysis per nephrology, outpatient being set up Follow-up on cardiology recommendations follow-up on pulmonary recommendations Labs and medication were reviewed.. Continue same treatment. Continue with symptomatic treatment. Resume home medication. Monitor labs and vitals. DVT and GI prophylaxis. Further recommendations as per clinical course of the patient Objective - Vital Signs Vital signs: Vital Signs Temp 98 F 09/10/22 12:00 Pulse 60 09/10/22 12:00 Resp 18 09/10/22 12:00 BP 125/55 09/10/22 12:00 Pulse Ox 97 09/10/22 12:00 FiO2 Intake & Output 09/09/22 09/10/22 09/10/22 18:59 06:59 18:59 Intake Total 500 720 Output Total 400 3150 250 Balance -400 -2650 470 Weight 70.1 kg Intake: Oral 720 Hemodialysis 500 Output: Urine 400 150 250 Hemodialysis 3000 Other: Voiding Method Toilet Toilet Toilet # Voids 1 1 # Bowel Movements 1 - Labs CBC & Chem 7: 09/09/22 09:07 09/09/22 09:07 Labs: Abnormal Lab Results - Last 24 Hours (Table) 09/09/22 09/09/22 09/10/22 Range/Units 16:55 17:33 06:12 POC Glucose (mg/dL) 169 H 129 H (70-110) mg/dL Hepatitis B DNA, Quant 103 H (<10) IU/mL Hep B DNA Qnt log IU/mL 2.01 H (<1.00) Hep B DNA Interpret DETECTED A (Not detected) Hepatitis Be Antibody REACTIVE A (Nonreactive) 09/10/22 Range/Units 11:39 POC Glucose (mg/dL) 149 H (70-110) mg/dL Hepatitis B DNA, Quant (<10) IU/mL Hep B DNA Qnt log IU/mL (<1.00) Hep B DNA Interpret (Not detected) Hepatitis Be Antibody (Nonreactive)
[2022-09-10 16:19] LABS: Glucose,Whole Blood 211 mg/dL (70-110)
[2022-09-10 17:54] LABS: HIV 2 AB Non-Reactive (Non-Reactive); HIV AB P24 Non-Reactive (Non-Reactive); HIV P24 AG Non-Reactive (Non-Reactive)
[2022-09-10 20:22] LABS: Glucose,Whole Blood 82 mg/dL (70-110)
[2022-09-10] MEDS: MELATONIN 5 MG TABLET PO SCH (20:54)
[2022-09-10] MEDS: ASPIRIN 81 MG PO SCH (20:54)
[2022-09-11 02:02] LABS: Hepatitis B Core IgM Nonreactive; Hepatitis B Surface AB- Quant 3.5 mIU/mL
[2022-09-11 02:40] LABS: Hepatitis B Surface Antigen Conf_React
[2022-09-11 06:07] LABS: Glucose,Whole Blood 117 mg/dL (70-110)
[2022-09-11] MEDS: INSULIN ASPART (NovoLOG) 100 UNIT/ML VIAL SQ SCH ×2 (06:10→11:45)
[2022-09-11] MEDS: PANTOPRAZOLE 40 MG TABLET PO SCH (06:38)
[2022-09-11] MEDS: LEVOTHYROXINE 75 MCG TAB PO SCH (06:38)
[2022-09-11] MEDS: INSULN ASP PRT/INSULIN ASPART 100 UNIT/ML 10 ML VIAL SQ SCH (07:05)
[2022-09-11] MEDS: HEPARIN SODIUM,PORCINE/PF 5,000 UNIT/0.5 ML SYRINGE SQ SCH (10:58)
[2022-09-11 11:44] LABS: Glucose,Whole Blood 99 mg/dL (70-110)
[2022-09-11] MEDS: LACTULOSE 20 GM/30 ML CUP PO SCH (12:18)
[2022-09-11] MEDS: hydrALAZINE HCL 50 MG TAB PO SCH (12:18)
[2022-09-11] MEDS: allopurinoL 100 MG TAB PO SCH (12:18)
[2022-09-11 12:24] VITALS: PULSE 62
--- NOTE | 2022-09-11 12:27 | P.PN ---
Subjective Patient is seen in follow-up for acute kidney injury on chronic kidney disease. Started on hemodialysis 09/05/2022. Permacath placed 09/10/22. Dyspnea improved. On room air. On oral Demadex. Patient states she is voiding but only small amount. Urine output documented as 250 mL in the last 24 hours. Hemodynamically stable. Vital signs are stable. General: No acute distress. HEENT: Head exam is unremarkable. LUNGS: No audible rhonchi or wheezes. HEART: Rate and Rhythm are regular. ABDOMEN: Nontender. EXTREMITITES: No edema. Objective - Vital Signs Vital signs: Vital Signs Temp 98.6 F 09/11/22 04:15 Pulse 62 09/11/22 12:00 Resp 16 09/11/22 12:00 BP 152/94 09/11/22 12:00 Pulse Ox 93 L 09/11/22 12:00 FiO2 Intake & Output 09/10/22 09/11/22 09/11/22 18:59 06:59 18:59 Intake Total 960 20 250 Output Total 250 Balance 710 20 250 Weight 71.2 kg Intake: IV 20 10 Invasive Line 3 20 10 Oral 960 240 Output: Urine 250 Other: Voiding Method Toilet Toilet # Voids 1 - Labs CBC & Chem 7: 09/09/22 09:07 09/09/22 09:07 Labs: Abnormal Lab Results - Last 24 Hours (Table) 09/09/22 09/10/22 09/11/22 Range/Units 17:33 16:16 06:06 POC Glucose (mg/dL) 211 H 117 H (70-110) mg/dL Hepatitis B DNA, Quant 103 H (<10) IU/mL Hep B DNA Qnt log IU/mL 2.01 H (<1.00) Hep B DNA Interpret DETECTED A (Not detected) Assessment and Plan Plan: Assessment: 1. Acute kidney injury secondary to ATN secondary to cardiorenal syndrome. Also concern for progression of underlying chronic kidney disease stage IV. 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 No hydronephrosis noted on kidney ultrasound. 1+ protein on UA. Patient has underlying diabetic kidney disease. Started on hemodialysis 09/05/2022. Creatinine 2.87 on admission and up to 3.56 this admission. 2. Volume overload. Improving to diuresis and ultrafiltration. 3. Acute on chronic diastolic CHF and moderate tricuspid regurgitation. 4. Diabetes mellitus. 5. Anemia of chronic kidney disease. Iron deficiency noted. s/p IV iron. 6. Metabolic acidosis secondary to chronic kidney disease. On oral bicarb. 7. Hypertension with chronic kidney disease. Stable. 8. Chronic kidney disease mineral bone disease. Phosphorous 4.1, vitamin D 35 and PTH 79 this admission. 9. Hyponatremia secondary to acute kidney injury. Hypervolemic. 10. 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 This was confirmed with lab. ID following. Plan: Currently seen while undergoing HD. Outpatient dialysis being set up. She will be maintained on a Thursday schedule. Maintain torsemide. Maintain low salt diet and fluid restriction. Continue to monitor renal function and urine output. Monitor for renal recovery.
--- NOTE | 2022-09-11 13:15 | P.DS ---
Providers Date of admission: 08/31/22 17:43 Expected date of discharge: 09/11/22 Attending physician: Chan Epps Consults: 08/31/22 17:41 Consult Physician Routine Consulting Provider: Cristina Tolbert Consult Reason/Comments: ckd Do you want consulting provider notified?: Yes 09/02/22 10:14 Consult Physician Routine Consulting Provider: Bob Curtis Consult Reason/Comments: gradually worsening hypoxia Do you want consulting provider notified?: Yes 09/05/22 13:40 Consult Physician Routine Consulting Provider: Ramon Muñoz Consult Reason/Comments: hemodialysis catheter Do you want consulting provider notified?: Already Contacted 09/09/22 14:42 Consult Physician Routine Consulting Provider: Gumaro Urrutia Consult Reason/Comments: Questioning hepatitis B Do you want consulting provider notified?: Yes Primary care physician: Stated None Hospital Course: Discharge diagnoses; Acute on chronic diastolic CHF exacerbation Acute hypoxic respiratory failure secondary to above Chronic kidney disease, unknown baseline with possible elements of acute kidney injury Elevated troponin could be secondary to kidney disease and heart failure Diabetes mellitus Hypertension Hyperlipidemia History of osteoarthritis Hypothyroidism History of sleep apnea on CPAP/BiPAP Hepatitis B surface antigen positive Hospital course; This is a pleasant 87 years old female with past medical history of chronic kidney disease, chronic heart failure, hypertension, hyperlipidemia, hypothyroidism, diabetes mellitus, history of GERD. Patient was recently moved from [place] back to [place]. Patient states she came because of dyspnea and leg swelling for 1 month, last night she flew from [place] back to [place], Patient uses CPAP machine at night. She's been constipated other than that she denies any specific GI urinary or neurological symptoms She quit smoking 40 years ago and drinking alcohol 20 years ago. No illicit drugs. She's been complaining of from right calf pain and ultrasound was negative for DVT. She is not on oxygen at home She moved to [place] with her daughters On admission she is afebrile, mildly tachypneic, hypertensive and she was saturating 91% on 4 L oxygen via nasal cannula improved to 95% She has mild leukocytosis of 11.4, hemoglobin 10.5. Risks of CBC is unremarkable. D-dimer 2.3. BMP showing a creatinine of 2.8, unknown baseline Glucose 126. Liver enzymes unremarkable Elevated troponin 0.15. ProBNP is elevated 7580. EKG showing normal sinus rhythm with no significant ST-T changes and QTC 410. Chest x-ray: CHF Venous Doppler showed no evidence of deep venous thrombosis Ventilation perfusion this is ordered and is pending. 09/01/2022 Patient clinically the same she still fluid overload that she still feels dyspneic with bilateral leg swelling she made ordered tomorrow on urine on IV Lasix 40 mg twice daily, partly because of her advanced kidney disease, pulse the it is a stage IV chronic kidney disease, renal ultrasound showing no hydronephrosis. Bladder scan is still pending. Urine analysis is negative for infection. Cardiology evaluated the patient and recommended to continue with the same Echocardiogram showed ejection fraction 72% with moderate mitral regurgitation. Continue with home dose of aspirin 81 mg going to increase Lasix to 60 mg twice daily to increase urine output and also put the patient on fluids resection 1000 per day 09/02/2022 Patient remains hypoxic and improving slowly and gradually. Her dyspnea also is slightly better. She's on 6 L oxygen via nasal cannula She's have chronic kidney disease and increase her IV Lasix to 60 mg twice daily, she has better urine output. Patient also on fluid restriction. Continue dose of aspirin 09/03 patient seen and examined. States she feels better compared to yesterday. Currently on 5 L of oxygen Interval change 09/05/2022 Patient is seen and evaluated in room at bedside; discussed with nursing staff; no specific complaints reported Patient remains on 7 L of oxygen. -- Chest x-rays consistent with fluid overload. Echocardiogram is reported as normal left ventricular systolic function White count 7.8, hemoglobin 9.9, hematocrit 31.2, and platelet count is normal. Sodium 131, potassium 4.1, chlorides 100, CO2 20, BUN 89, and creatinine 3.33. Cardiology on board and recommending to continue with IV Lasix; continue to monitor strict MARIA DE JESUS's, daily weights 09/06/2022 Patient is seen and evaluated in room undergoing dialysis; family is at bedside Patient is status post temporary dialysis catheter placement and underwent hemodialysis yesterday and able to remove 2 L; patient reports improvement in breathing Vital signs are reviewed and remained stable; no cold for hemodialysis to remove any of the 2 L if possible; patient remains on IV Lasix infusion; we will plan to continue to monitor strict MARIA DE JESUS's and daily weights; avoid nephrotoxins and hypotension -- Nephrology recommending to discontinue Lasix infusion and transitioned to Lasix 60 mg IV every 12 hours 09/07/2022 Patient is seen and evaluated resting comfortably in bed; patient is status post right femoral dialysis catheter placement with first hemodialysis session on 09/05/2022; patient had another dialysis session completed yesterday with removal of 2 L fluid. No dialysis planned till tomorrow; patient has been transitioned from IV Lasix infusion to injection; volume overload is improving with diuresis and ultrafiltration; patient remains on low salt and fluid restricted diet with close monitoring of renal function and urine output; patient will need to be set up for outpatient dialysis once deemed necessary by nephrology 09/08. Patient seen and examined. Continues to be on 8 liters of oxygen. Patient is scheduled for dialysis today 09/09. Patient seen and examined. Still has constipation, complaining of abdominal cramps secondary to getting stool softeners. Currently on 3 L of oxygen 09/10. Patient seen and examined. States breathing has improved, currently off oxygen. 09/11. Patient seen and examined. No acute issues overnight. Outpatient dialysis has been setup. PHYSICAL EXAMINATION: GENERAL: The patient is alert and oriented x3, not in any acute distress. Well developed, well nourished. HEENT: Pupils are round and equally reacting to light. EOMI. No scleral icterus. No conjunctival pallor. Normocephalic, atraumatic. No pharyngeal erythema. No thyromegaly. CARDIOVASCULAR: S1 and S2 present. No murmurs, rubs, or gallops. PULMONARY: Chest is clear to auscultation, no wheezing or crackles. ABDOMEN: Soft, nontender, nondistended, normoactive bowel sounds. No palpable organomegaly. MUSCULOSKELETAL: No joint swelling or deformity. EXTREMITIES: No cyanosis, clubbing, or pedal edema. NEUROLOGICAL: Gross neurological examination did not reveal any focal deficits. SKIN: No rashes. Patient Condition at Discharge: Fair Plan - Discharge Summary Discharge Rx Participant: Yes New Discharge Prescriptions: New Torsemide [Demadex] 40 mg PO DAILY #30 tab Continue Omeprazole [PriLOSEC] 20 mg PO BID Multivitamins, Thera [Multivitamin (formulary)] 1 tab PO DAILY allopurinoL [Zyloprim] 100 mg PO BID NIFEdipine XL [Procardia XL] 60 mg PO BID Levothyroxine Sodium [Synthroid] 75 mcg PO DAILY Atorvastatin [Lipitor] 20 mg PO DAILY predniSONE See Taper PO DAILY busPIRone HCl [Buspar] 10 mg PO BID Melatonin [Melatonin ER] 10 mg PO HS Nebivolol [Bystolic] 5 mg PO BID Insulin NPH Hum/Reg Insulin Hm [Novolin 70-30 100 Unit/ml Vial] 18 unit SQ AC-SUPPER Cyanocobalamin (Vitamin B-12) [Vitamin B-12] 1,000 mcg PO DAILY Aspirin EC [Ecotrin Low Dose] 81 mg PO HS hydrALAZINE HCL [Apresoline] 50 mg PO TID Discontinued Potassium Chloride ER [K-Dur 20] 20 meq PO DAILY Insulin NPH Hum/Reg Insulin Hm [Novolin 70-30 100 Unit/ml Vial] 10 unit SQ AC-BRKFST Bumetanide [BUMEX] 2 mg PO BID Discharge Medication List Aspirin EC [Ecotrin Low Dose] 81 mg PO HS 08/31/22 [History] Atorvastatin [Lipitor] 20 mg PO DAILY 08/31/22 [History] Cyanocobalamin (Vitamin B-12) [Vitamin B-12] 1,000 mcg PO DAILY 08/31/22 [History] Insulin NPH Hum/Reg Insulin Hm [Novolin 70-30 100 Unit/ml Vial] 18 unit SQ AC- SUPPER 08/31/22 [History] Levothyroxine Sodium [Synthroid] 75 mcg PO DAILY 08/31/22 [History] Melatonin [Melatonin ER] 10 mg PO HS 08/31/22 [History] Multivitamins, Thera [Multivitamin (formulary)] 1 tab PO DAILY 08/31/22 [History] NIFEdipine XL [Procardia XL] 60 mg PO BID 08/31/22 [History] Nebivolol [Bystolic] 5 mg PO BID 08/31/22 [History] Omeprazole [PriLOSEC] 20 mg PO BID 08/31/22 [History] allopurinoL [Zyloprim] 100 mg PO BID 08/31/22 [History] busPIRone HCl [Buspar] 10 mg PO BID 08/31/22 [History] hydrALAZINE HCL [Apresoline] 50 mg PO TID 08/31/22 [History] predniSONE See Taper PO DAILY 08/31/22 [History] Torsemide [Demadex] 40 mg PO DAILY #30 tab 09/11/22 [Rx] Follow up Appointment(s)/Referral(s): Jam Morin MD [STAFF PHYSICIAN] - 1 Week ([facility] will call you with appointment date and time.) Bob Curtis DO [Doctor of Osteopathic Medicine] - 10/03/22 10:30 am (You are also added to their cancellation list for a possible appointment sooner than scheduled appointment.) Yogesh Turk DO [STAFF PHYSICIAN] - 11/19/22 1:15 pm None,Stated [Primary Care Provider] - 1-2 days Activity/Diet/Wound Care/Special Instructions: Patient will require a hospital bed at discharge to keep head of bed elevate greater than 30 degrees to manage shortness of breath from CHF Patient will require a bedside commode at discharge due to being room confined from shortness of breath from CHF Discharge/Stand Alone Forms: Who Do I Call?, Area PCPs
[2022-09-11 13:18] VITALS: BP 128/52; RESP 18; TEMP 98.1
--- NOTE | 2022-09-11 13:50 | P.PN ---
Subjective Progress Note Date: 09/10/22 Principal diagnosis: Hepatitis B Patient is a 87-year-old female presenting to the hospital about 10 days ago for evaluation of increasing shortness of breath and leg swelling that has been getting worse for about a month before presentation to the hospital patient did have a multiple comorbidities including hypertension hyperlipidemia hypothyroidism diabetes mellitus , patient did have worsening of the kidney function requiring dialysis catheter placement she also tested positive for hepatitis B, hepatitis C was negative On today's evaluation that is 09/10/2022, patient denies having any fever or any chills, the patient is feeling comfortably no chest pain or shortness of breath or cough no nausea no vomiting no abdominal pain or diarrhea Objective - Vital Signs Vital signs: Vital Signs Temp 97.7 F 09/10/22 08:00 Pulse 59 L 09/10/22 08:00 Resp 18 09/10/22 08:00 BP 104/53 09/10/22 08:00 Pulse Ox 96 09/10/22 08:00 FiO2 Intake & Output 09/09/22 09/10/22 09/10/22 18:59 06:59 18:59 Intake Total 500 240 Output Total 400 3150 150 Balance -400 -2650 90 Weight 70.1 kg Intake: Oral 240 Hemodialysis 500 Output: Urine 400 150 150 Hemodialysis 3000 Other: Voiding Method Toilet Toilet Toilet # Voids 1 1 # Bowel Movements 1 - Exam GENERAL DESCRIPTION: An elderly female lying in bed in no distress RESPIRATORY SYSTEM: Unlabored breathing , decreased breath sounds at bases HEART: S1 S2 regular rate and rhythm , ABDOMEN: Soft , no tenderness EXTREMITIES: No edema feet - Labs CBC & Chem 7: 09/09/22 09:07 09/09/22 09:07 Labs: Abnormal Lab Results - Last 24 Hours (Table) 09/09/22 09/09/22 09/10/22 Range/Units 16:55 17:33 06:12 POC Glucose (mg/dL) 169 H 129 H (70-110) mg/dL Hepatitis Be Antibody REACTIVE A (Nonreactive) 09/10/22 Range/Units 11:39 POC Glucose (mg/dL) 149 H (70-110) mg/dL Hepatitis Be Antibody (Nonreactive) Assessment and Plan (1) Chronic hepatitis B Current Visit: Yes Status: Acute Code(s): B18.1 - CHRONIC VIRAL HEPATITIS B WITHOUT DELTA-AGENT SNOMED Code(s): 96951559 Plan: 1patient with a positive hepatitis B core antibodies and also hepatitis B charlton rface antigen has been reactive however the patient do not have any high risk behavior and did have normal liver enzymes on admission though they are slightly elevated on today's redraw, patient never has been tested positive for hepatitis B in the past 2-we are currently waiting for hepatitis E antigen antibody and hepatitis B DNA to confirm the diagnosis 3-no need for any antiviral at this point Time with Patient: Less than 30
--- NOTE | 2022-09-11 13:54 | P.PN ---
Subjective Progress Note Date: 09/11/22 Principal diagnosis: Hepatitis B Patient is a 87-year-old female presenting to the hospital about 10 days ago for evaluation of increasing shortness of breath and leg swelling that has been getting worse for about a month before presentation to the hospital patient did have a multiple comorbidities including hypertension hyperlipidemia hypothyroidism diabetes mellitus , patient did have worsening of the kidney function requiring dialysis catheter placement she also tested positive for hepatitis B, hepatitis C was negative On today's evaluation that is 09/11/2022, patient remains to be afebrile, the patient is breathing comfortably on room air, the patient denies chest pain or shortness of breath or cough no nausea no vomiting no abdominal pain or diarrhea Objective - Vital Signs Vital signs: Vital Signs Temp 98.6 F 09/11/22 04:15 Pulse 61 09/11/22 08:00 Resp 16 09/11/22 08:00 BP 119/61 09/11/22 04:15 Pulse Ox 95 09/11/22 09:30 FiO2 Intake & Output 09/10/22 09/11/22 09/11/22 18:59 06:59 18:59 Intake Total 960 20 250 Output Total 250 Balance 710 20 250 Weight 71.2 kg Intake: IV 20 10 Invasive Line 3 20 10 Oral 960 240 Output: Urine 250 Other: Voiding Method Toilet Toilet # Voids 1 - Exam GENERAL DESCRIPTION: An elderly female lying in bed in no distress RESPIRATORY SYSTEM: Unlabored breathing , decreased breath sounds at bases HEART: S1 S2 regular rate and rhythm , ABDOMEN: Soft , no tenderness EXTREMITIES: No edema feet - Labs CBC & Chem 7: 09/09/22 09:07 09/09/22 09:07 Labs: Abnormal Lab Results - Last 24 Hours (Table) 09/09/22 09/10/22 09/11/22 Range/Units 17:33 16:16 06:06 POC Glucose (mg/dL) 211 H 117 H (70-110) mg/dL Hepatitis B DNA, Quant 103 H (<10) IU/mL Hep B DNA Qnt log IU/mL 2.01 H (<1.00) Hep B DNA Interpret DETECTED A (Not detected) Assessment and Plan (1) Chronic hepatitis B Current Visit: Yes Status: Acute Code(s): B18.1 - CHRONIC VIRAL HEPATITIS B WITHOUT DELTA-AGENT SNOMED Code(s): 70844496 Plan: 1patient with a positive hepatitis B core antibodies and also hepatitis B surface antigen has been reactive however the patient do not have any high risk behavior and did have normal liver enzymes on admission though they are slightly elevated on today's redraw, patient never has been tested positive for hepatitis B in the past 2-patient did tested positive for hepatitis B surface antigen, hepatitis Be antigen was nonreactive and antibodies were positive, patient did have a hepatitis B DNA positive with a viral load of 103, this confirmed the patient to have chronic active hepatitis B infection however the patient viral load is very low and her liver enzymes were normal on admission though mildly elevated subsequently patient does not need treatment at this point but will need close observation outpatient and repeat blood work every few months to make sure the viral load is not going up or liver enzymes are going up that to determine further treatment this was explained to the patient and the family in layman terms and how to prevent spread in household setting, patient should be considered infectious and appropriate measures to prevent spread in the dialysis setting Time with Patient: Less than 30
[2022-09-11] MEDS: busPIRone HCl 10 MG TAB PO SCH (14:29)
[2022-09-11] MEDS: DOCUSATE 100 MG CAP PO SCH (14:30)
[2022-09-11] MEDS: NEBIVOLOL 5 MG TAB PO SCH (14:30)
[2022-09-11] MEDS: SODIUM BICARBONATE TAB 650 MG TAB PO SCH (14:31)
[2022-09-11] MEDS: MULTIVITAMINS, THERA 1 EACH TAB PO SCH (14:31)
[2022-09-11] MEDS: CYANOCOBALAMIN 500 MCG TAB PO SCH (14:31)
--- NOTE | 2022-09-11 14:33 | P.PN ---
Subjective Progress Note Date: 09/11/22 87-year-old female who recently moved back to [place] from [place]. She presented to the emergency department on August 31, complaining of shortness of breath. The patient is currently seen today in room 366. Her 3 daughters are present. She apparently been having shortness breath for a number of days, and decided to come into the hospital to be evaluated. She does not have a family doctor in this area, and is hoping to establish herself with Dr. Chanell Turk. She does have a remote history of tobacco use. She smoked only socially. The patient denies a history of chronic lung disease. She appears to have diastolic CHF. Her chest x-ray was consistent with fluid overload, and her N-terminal proBNP was elevated. The patient's currently on 6 L of oxygen. She has been seen by cardiology. In addition to diastolic CHF, she has a history of hyperlipidemia, diabetes, hypothyroidism, insomnia, gastroesophageal reflux disease, and gout. Laboratory data from September 01 showed white count of 7.9, hemoglobin 9.3, hematocrit 29.1, and a normal platelet count. Sodium 136, potassium 3.5, chlorides 102, CO2 22, BUN 81, and creatinine 2.86. The patient's troponins were 0.156 and 0.112. N-terminal proBNP was 7580. Chest x- ray was consistent with fluid overload. Dopplers of the lower semis were negative. Pulmonary perfusion lung scan, was negative. Progress note dated 09/03/2022. The patient is seen today in room 366. She was seen in consultation yesterday. Please see the note above. She remains on saline at 10 mL an hour, and also oxygen is 7 L nasal cannula. She was admitted with a diagnosis of CHF. She has diastolic CHF. Currently, she seems to be doing about the same, no better, but no worse. No new labs today other than a blood glucose of 226. A repeat chest x-ray was ordered for tomorrow. Progress note dated 09/04/2022. The patient is seen today in room 366. Currently, she is on 7 L of oxygen. She's not receiving any IV fluids. Chest x-rays consistent with fluid overload. The patient does feel fatigued, and a short of breath on exertion. She was adm itted with a diagnosis of diastolic CHF. White count 7.8, hemoglobin 9.9, hematocrit 31.2, and platelet count is normal. Sodium 131, potassium 4.1, chlorides 100, CO2 20, BUN 89, and creatinine 3.33. Progress note dated 09/05/2022. 87-year-old female seen today in room 366. She was admitted with hypoxemic respiratory failure, secondary to fluid overload. Unfortunately, her renal function has worsened, and the patient will likely need hemodialysis. I suspect a hemodialysis catheter will be placed today. Her chest x-ray shows fluid overload. She does have diastolic CHF. She's currently on 7 L of oxygen. That has not really improved at all. No new labs today other glucose of 225. Her creatinine is up to 3.33. Her BUN from yesterday was 89. Progress note dated 09/06/2022. 87-year-old female seen today in room 366. The patient had a hemodialysis catheter placed yesterday. She had hemodialysis, and 2 L of fluid was removed. She's currently on 9 L high flow nasal cannula, and is receiving a Lasix drip at 10 mg an hour. She's feeling a bit better today than she did yesterday, and clinically, she looks a bit better. Lab data today includes a glucose of 129. Progress note dated August. 87-year-old female seen today in room 366. The patient has had 2 sessions of hemodialysis. During both sessions, 2 L of fluid was removed. The patient is feeling better. She has been weaned down to 8 liter high flow oxygen. Laboratory data today includes only a glucose of 133. The patient is feeling much improved. Her breathing is much better. She will have dialysis again tomorrow. On today's evaluation of 09/08/2022, the patient is being seen for a follow-up. The patient remains on oxygen at 8 L nasal cannula. The patient is still having some shortness of breath. Urine output is minimal and the patient is on Lasix. The patient is going to undergo her third session of hemodialysis today. Her sodium level is at 128, BUN is at 52 with a creatinine of 3.3 and the potassium levels at 4.7. She also has obstructive sleep apnea and the patient is utilizing a BiPAP at home at a pressure of 15/11 cm of water. This was not used because of her high oxygen requirements. Her chest x-ray was consistent with CHF/fluid overload with bilateral pleural effusions. There is also evidence of lymph node calcification involving the hilar areas. Had echocardiogram was showing a preserved LV function, no significant valvular abnormalities noted. On 09/09/2022, the patient has feeling weak and lethargic. Nevertheless, reduction she is improved and the patient is currently on 3 L of oxygen by nasal cannula. She has brought her BiPAP machine from home at a pressure of 15/11 cm of water and would also going to feed and oxygen via an adapter that was attach ed her BiPAP machine. She underwent her first session of hemodialysis yesterday with 2 L of ultrafiltration. She is less short of breath. BUN is at 45 with a creatinine of 2.9 and a sodium level is at 129. White cell count is at 8 with a hemoglobin of 9.4. Repeat chest x-ray from today shows improvement in interstitial congestion with some changes consistent with CHF still present. No cough. No sputum production. Remains on her typical all medications including Demadex 40 mg by mouth daily. On today's evaluation of 09/10/2022, the patient is feeling great. She took a walk and she is not having any significant shortness of breath. She is currently on room air oxygen. She underwent hemodialysis yesterday and an additional plan have liters was taken off her body. She is pleasant BiPAP overnight. She is doing well. No specific complaints pH and the permacath inserted also. Urine output is minimal for now. She is on Demadex 40 mg by mouth daily. No other complaints otherwise for now. No other significant events overnight. On 09/11/2022 patient remains on room air oxygen. She does not have any significant respiratory difficulties. She is undergoing hemodialysis with the goal of ultrafiltration of 3 L today. No chest pain. No shortness of breath. She remains on Demadex 40 mg by mouth daily. No other new complaints otherwise for now. No fever. No chills. No blood work from today. The blood pressures have been under adequate control and the patient is currently on room air oxygen. Objective - Vital Signs Vital signs: Vital Signs Temp 98.6 F 09/11/22 04:15 Pulse 61 09/11/22 08:00 Resp 16 09/11/22 08:00 BP 119/61 09/11/22 04:15 Pulse Ox 95 09/11/22 09:30 FiO2 Intake & Output 09/10/22 09/11/22 09/11/22 18:59 06:59 18:59 Intake Total 960 20 250 Output Total 250 Balance 710 20 250 Weight 71.2 kg Intake: IV 20 10 Invasive Line 3 20 10 Oral 960 240 Output: Urine 250 Other: Voiding Method Toilet Toilet # Voids 1 - Exam No acute distress, oriented 3. Currently the patient's on room air oxygen HEENT examination is grossly unremarkable. Neck supple. Full range of motion. No adenopathy thyromegaly or neck vein distention. Cardiovascular examination reveals regular rhythm rate. S1-S2 normal. No S3 or S4. Heart sounds are distant. A soft systolic murmur is noted. Lungs reveal scattered rhonchi and crackles. No wheezes. Breath sounds equal bilaterally. Abdomen soft bowel sounds are heard. No masses or tenderness. Extremities are intact. No cyanosis clubbing or edema. Examination of the skin revealed no evidence of significant rashes, suspicious appearing nevi or other concerning lesions. Neurologic examination is brief but nonfocal. - Labs CBC & Chem 7: 09/09/22 09:07 09/09/22 09:07 Labs: Abnormal Lab Results - Last 24 Hours (Table) 09/09/22 09/10/22 09/10/22 Range/Units 17:33 11:39 16:16 POC Glucose (mg/dL) 149 H 211 H (70-110) mg/dL Hepatitis B DNA, Quant 103 H (<10) IU/mL Hep B DNA Qnt log IU/mL 2.01 H (<1.00) Hep B DNA Interpret DETECTED A (Not detected) 09/11/22 Range/Units 06:06 POC Glucose (mg/dL) 117 H (70-110) mg/dL Hepatitis B DNA, Quant (<10) IU/mL Hep B DNA Qnt log IU/mL (<1.00) Hep B DNA Interpret (Not detected) Assessment and Plan Plan: Acute hypoxemic respiratory failure, secondary to acute on chronic diastolic CHF. The patient also has signs of fluid overload with bilateral pleural effusions. Chest x-ray also shows hilar lymph node calcification bilaterally, rule out underlying chronic granulomatous infection/previous sarcoidosis. The chest x-ray showing improvement in the interstitial infiltrates/CHF and the patient is currently down to room air oxygen and she is not having any significant shortness of breath on today's evaluation Obstructive sleep apnea maintained on BiPAP therapy at a pressure of 15/11 cm of water History of diabetes mellitus. Acute on chronic kidney disease, with initiation of hemodialysis on 09/05/2022. History of hyperlipidemia. History of hypothyroidism. History of hypertension. History of gastroesophageal reflux disease. History of gout. Remote history of tobacco use. ALEJA Plan: Hemodialysis was performed today with a goal of ultrafiltration of 3 L Room air oxygen without any shortness of breath, respiratory status improved considerably Utilize home BiPAP at a pressure of 15 of 11 cm of water Monitor hemoglobin and the patient was given IV iron Patient is on Demadex and the patient is producing minimal amount of urine Monitor oxygenation, currently on room air oxygen [employer] Admin on the case We'll continue to follow.
[2022-09-11 16:48] LABS: Glucose,Whole Blood 195 mg/dL (70-110)
[2022-09-11] MEDS: ATORVASTATIN 20 MG TAB PO SCH (17:58)
[2022-09-11] MEDS: TORSEMIDE 20 MG TAB PO SCH (17:58)
== END 2022-09-11 18:24 | disposition home or self-care (01) | DRG 291 ==
LOC: EC 14:19 → 3SCARD 17:43
PROVIDERS: ADMIT Hospitalist; ATTEND Hospitalist
PROC: 06HY33Z Insertion of Infusion Device into Lower Vein, Percutaneous Approach (ICD-10-PCS; principal; 2022-09-05 15:15)
PROC: 5A1D70Z Performance of Urinary Filtration, Intermittent, Less than 6 Hours Per Day (ICD-10-PCS; 2022-09-05 15:15)
PROC: 02HV33Z Insertion of Infusion Device into Superior Vena Cava, Percutaneous Approach (ICD-10-PCS; 2022-09-09 13:00)
DX: I13.0 Hypertensive heart and chronic kidney disease with heart failure and stage 1 through stage 4 chronic kidney disease, or unspecified chronic kidney disease (principal); I50.33 Acute on chronic diastolic (congestive) heart failure; N17.0 Acute kidney failure with tubular necrosis; J96.01 Acute respiratory failure with hypoxia; N18.4 Chronic kidney disease, stage 4 (severe); B16.9 Acute hepatitis B without delta-agent and without hepatic coma; E87.1 Hypo-osmolality and hyponatremia; E83.9 Disorder of mineral metabolism, unspecified; D63.1 Anemia in chronic kidney disease; E11.22 Type 2 diabetes mellitus with diabetic chronic kidney disease; Z79.4 Long term (current) use of insulin; Z99.2 Dependence on renal dialysis; Z66 Do not resuscitate; K21.9 Gastro-esophageal reflux disease without esophagitis; E78.5 Hyperlipidemia, unspecified; G47.33 Obstructive sleep apnea (adult) (pediatric); F41.9 Anxiety disorder, unspecified; G47.00 Insomnia, unspecified; M10.9 Gout, unspecified; M19.90 Unspecified osteoarthritis, unspecified site; I08.1 Rheumatic disorders of both mitral and tricuspid valves; R77.8 Other specified abnormalities of plasma proteins; E89.0 Postprocedural hypothyroidism; E61.1 Iron deficiency; M79.661 Pain in right lower leg; K59.00 Constipation, unspecified; I89.8 Other specified noninfective disorders of lymphatic vessels and lymph nodes; Z79.82 Long term (current) use of aspirin; Z79.890 Hormone replacement therapy; Z79.899 Other long term (current) drug therapy; Z96.642 Presence of left artificial hip joint; Z87.891 Personal history of nicotine dependence; Z88.5 Allergy status to narcotic agent; Z88.8 Allergy status to other drugs, medicaments and biological substances
CPT/HCPCS: 36415; 36556; 36558; 71045; 71046; 76000; 76770; 76937; 77001; 78582; 80048; 80053; 81001; 82306; 83036; 83540; 83550; 83605; 83735; 83880; 83970; 84100; 84484; 85025; 85027; 85379; 85610; 85730; 86704; 86705; 86706; 86707; 87340; 87350; 87390; 87517; 90935; 93005; 93306; 94760; 96374; 99285